=== PATIENT | female | born 1995 | race Caucasian/White ===

== ENCOUNTER 2017-02-14 20:27 | Emergency (ER) | payer BC, OTHER ==
[~2017-02-14] VITALS: Ht 162.6 cm; Wt 68.0 kg
--- OUTSIDE RECORDS SUMMARY | ~2017-02-14 | XMS ---
Demographics + + + | Address | [address] | | | [place] [address] | + + + | Preferred Language | Unknown | + + + | Marital Status | Unknown | + + + | Gnosticism Affiliation | Unknown | + + + | Race | Unknown | + + + | Ethnic Group | Unknown | + + + Author + + + | Author | [facility] | + + + | Organization | [facility] | + + + | Address | [address] | | | [place] [address] | + + + | Phone | | + + + Care Team Providers + + + + | Care Core Carrier Name | Role | Phone | + + + + Unavailable | Unavailable | + + + + PROBLEMS +---------+ + + +--------+ + + | Type | Condition | ICD9-CM | [id number] | Onset | Condition | SNOMED | | | | Code | Code | Dates | Status | Code | +---------+ + + +--------+ + + | Problem | Anxiety | | F41.9 | | Active | [id number] | +---------+ + + +--------+ + + | Problem | Depression | | F32.9 | | Active | 873575490 | +---------+ + + +--------+ + + | Problem | Exercise-i | 493.81 | | | Active | 94768641 | | | nduced | | | [...] smoking Hx information available PLAN OF CARE + +---------+ | Activity | Details | + +---------+ +---+ | | +---+ + + + | Pending Test | NIPT - cfDNA | + + + VITAL SIGNS MEDICATIONS Unknown Medications RESULTS No Results PROCEDURES No Known procedures IMMUNIZATIONS No Known Immunizations"
--- OUTSIDE RECORDS SUMMARY | ~2017-02-14 | XMS ---
Demographics + + + | Address | [address] | | | [place] [address] | + + + | Preferred Language | Unknown | + + + | Marital Status | Unknown | + + + | Mandaen Affiliation | Unknown | + + + | Race | Unknown | + + + | Ethnic Group | Unknown | + + + Author + + + | Author | [facility] | + + + | Organization | [facility] | + + + | Address | [address] | | | [place] [address] | + + + | Phone | | + + + Care Team Providers + + + + | Care Customer Sales Consultant Name | Role | Phone | + + + + Unavailable | Unavailable | + + + + PROBLEMS +---------+ + + +--------+ + + | Type | Condition | ICD9-CM | [id number] | Onset | Condition | SNOMED | | | | Code | Code | Dates | Status | Code | +---------+ + + +--------+ + + | Problem | Anxiety | | F41.9 | | Active | [id number] | +---------+ + + +--------+ + + | Problem | Depression | | F32.9 | | Active | 428714314 | +---------+ + + +--------+ + + | Problem | Exercise-i | 493.81 | | | Active | 27373162 | | | nduced | | | [...]
--- OUTSIDE RECORDS SUMMARY | ~2017-02-14 | XMS ---
Demographics + + + | Address | [address] | | | [place] [address] | + + + | Preferred Language | Unknown | + + + | Marital Status | Unknown | + + + | Rastafari Affiliation | Unknown | + + + | Race | Unknown | + + + | Ethnic Group | Unknown | + + + Author + + + | Author | [facility] | + + + | Organization | [facility] | + + + | Address | [address] | | | [place] [address] | + + + | Phone | | + + + Care Team Providers + + + + | Care Feed Mill Supervisor Name | Role | Phone | + + + + Unavailable | Unavailable | + + + + PROBLEMS +---------+ + + +--------+ + + | Type | Condition | ICD9-CM | [id number] | Onset | Condition | SNOMED | | | | Code | Code | Dates | Status | Code | +---------+ + + +--------+ + + | Problem | Anxiety | | F41.9 | | Active | [id number] | +---------+ + + +--------+ + + | Problem | Depression | | F32.9 | | Active | 459998900 | +---------+ + + +--------+ + + | Problem | Exercise-i | 493.81 | | | Active | 54365520 | | | nduced | | | [...]
--- OUTSIDE RECORDS SUMMARY | ~2017-02-14 | XMS ---
Demographics + + + | Address | [address] | | | [place] [address] | + + + | Preferred Language | Unknown | + + + | Marital Status | Unknown | + + + | Samaritan Affiliation | Unknown | + + + | Race | Unknown | + + + | Ethnic Group | Unknown | + + + Author + + + | Author | [facility] | + + + | Organization | [facility] | + + + | Address | [address] | | | [place] [address] | + + + | Phone | | + + + Care Team Providers + + + + | Care Investment Banker Name | Role | Phone | + + + + Unavailable | Unavailable | + + + + PROBLEMS +---------+ + + +--------+ + + | Type | Condition | ICD9-CM | [id number] | Onset | Condition | SNOMED | | | | Code | Code | Dates | Status | Code | +---------+ + + +--------+ + + | Problem | Anxiety | | F41.9 | | Active | [id number] | +---------+ + + +--------+ + + | Problem | Depression | | F32.9 | | Active | 070489420 | +---------+ + + +--------+ + + | Problem | Exercise-i | 493.81 | | | Active | 26660456 | | | nduced | | | [...]
[~2017-02-14 20:27] MED LIST: CLONAZEPAM1 MG PO; CLONAZEPAM2 MG PO; EPIDUO TOP; IBUPROFEN600 MG PO; LEXAPRO5 MG PO; MIRENA1 EACH IY; NORCO 5-325 TA1 EACH PO; PERCOCET 5-3251 EACH PO; PROAIR HFA8.5 GM INH; PROMETHAZINE12.5 M1 PO; SULFAMETHOXAZO1 EAC1 PO; TYLENOL325 MG PO
[2017-02-14] MEDS ORDERED: ARIPIPRAZOLE5 MG PO (20:34)
[2017-02-14] MEDS ORDERED: PHENADOZ25 MG PR (20:34)
[2017-02-14] MEDS ORDERED: CYCLOBENZAPRINE10 MG PO (20:35)
[2017-02-14] MEDS ORDERED: ONDANSETRON ODT8 MG PO (20:36)
[2017-02-14] MEDS ORDERED: METOCLOPRAMIDE10 MG PO (20:36)
[2017-02-15] MEDS ORDERED: VICODIN 5-3001 EACH PO (10:12)
[2017-02-15] MEDS ORDERED: NORCO 5-325 TA1 EACH PO (10:26)
[2017-02-15] MEDS ORDERED: AUGMENTIN 875-1 EACH PO (10:26)
[2017-08-02] MEDS ORDERED: ESCITALOPRAM OX10 MG PO (07:47)
== END 2017-02-14 23:26 | disposition home or self-care (01) ==
LOC: ED 20:27
DX: O23.592 Infection of other part of genital tract in pregnancy, second trimester (principal); O99.342 Other mental disorders complicating pregnancy, second trimester; F32.9 Major depressive disorder, single episode, unspecified; F41.9 Anxiety disorder, unspecified; O99.512 Diseases of the respiratory system complicating pregnancy, second trimester; J45.909 Unspecified asthma, uncomplicated; Z90.49 Acquired absence of other specified parts of digestive tract; Z88.8 Allergy status to other drugs, medicaments and biological substances; Z79.899 Other long term (current) drug therapy; Z3A.17 17 weeks gestation of pregnancy
CPT/HCPCS: 99282

== ENCOUNTER 2017-02-15 09:58 | Emergency (ER) | payer BC, OTHER ==
[~2017-02-15] VITALS: Ht 162.6 cm; Wt 68.0 kg
[~2017-02-15 09:58] MED LIST changes: +ARIPIPRAZOLE5 MG PO; +CYCLOBENZAPRINE10 MG PO; +METOCLOPRAMIDE10 MG PO; +ONDANSETRON ODT8 MG PO; +PHENADOZ25 MG PR
[2017-02-15] MEDS ORDERED: VICODIN 5-3001 EACH PO (10:12)
[2017-02-15] MEDS ORDERED: AUGMENTIN 875-1 EACH PO (10:26)
[2017-02-15] MEDS ORDERED: NORCO 5-325 TA1 EACH PO (10:26)
[2017-08-02] MEDS ORDERED: ESCITALOPRAM OX10 MG PO (07:47)
== END 2017-02-15 10:52 | disposition home or self-care (01) ==
LOC: ED 09:58
DX: N75.0 Cyst of Bartholin's gland (principal); J45.909 Unspecified asthma, uncomplicated; F32.9 Major depressive disorder, single episode, unspecified; F41.9 Anxiety disorder, unspecified; Z90.49 Acquired absence of other specified parts of digestive tract; Z88.8 Allergy status to other drugs, medicaments and biological substances; Z79.899 Other long term (current) drug therapy
CPT/HCPCS: 96372; 99283; J0696

== ENCOUNTER 2017-03-23 10:24 | Emergency (ER) | payer BC, OTHER ==
[~2017-03-23] VITALS: Ht 162.6 cm; Wt 70.3 kg
[~2017-03-23 10:24] MED LIST changes: +AUGMENTIN 875-1 EACH PO; +VICODIN 5-3001 EACH PO
--- OUTSIDE RECORDS SUMMARY | 2017-03-23 10:32 | XMS ---
Demographics + + + | Address | [address] | | | [place] [address] | + + + | Preferred Language | Unknown | + + + | Marital Status | Unknown | + + + | Taoism Affiliation | Unknown | + + + | Race | Unknown | + + + | Ethnic Group | Unknown | + + + Author + + + | Author | [facility] | + + + | Organization | [facility] | + + + | Address | [address] | | | [place] [address] | + + + | Phone | | + + + Care Team Providers + + + + | Care Image Processing Engineer Name | Role | Phone | + + + + Unavailable | Unavailable | + + + + PROBLEMS +---------+ + + +--------+ + + | Type | Condition | ICD9-CM | [id number] | Onset | Condition | SNOMED | | | | Code | Code | Dates | Status | Code | +---------+ + + +--------+ + + | Problem | Anxiety | | F41.9 | | Active | [id number] | +---------+ + + +--------+ + + | Problem | Depression | | F32.9 | | Active | 027522646 | +---------+ + + +--------+ + + | Problem | Exercise-i | 493.81 | | | Active | 96738757 | | | nduced | | | | | | | | asthma | | | | | | +---------+ + + +--------+ + + | Problem | Imbalanced | 269.8 | | | Active | | | | nutrition | | | | | | +---------+ + + +--------+ + + ALLERGIES Unknown Allergies SOCIAL HISTORY No smoking Hx information available PLAN OF CARE VITAL SIGNS MEDICATIONS + + + + +--------+ + +--------+ | Medicati | Instruct | Dosage | Frequenc | Start | End Date | Duration | Status | | on | ions | | y | Date | | | | + + + + +--------+ + +--------+ | Zofran | Orally | as | | | | 15 | Active | | ODT 8 MG | tid prn | directed | | | | day(s) | | + + + + +--------+ + +--------+ RESULTS No Results PROCEDURES No Known procedures IMMUNIZATIONS No Known Immunizations"
--- OUTSIDE RECORDS SUMMARY | 2017-03-23 10:32 | XMS ---
Demographics + + + | Address | [address] | | | [place] [address] | + + + | Preferred Language | Unknown | + + + | Marital Status | Unknown | + + + | Catholic Affiliation | Unknown | + + + | Race | Unknown | + + + | Ethnic Group | Unknown | + + + Author + + + | Author | [facility] | + + + | Organization | [facility] | + + + | Address | [address] | | | [place] [address] | + + + | Phone | | + + + Care Team Providers + + + + | Care Building Attendant Name | Role | Phone | + + + + Unavailable | Unavailable | + + + + PROBLEMS +---------+ + + +--------+ + + | Type | Condition | ICD9-CM | EMH54-JS | Onset | Condition | SNOMED | | | | Code | Code | Dates | Status | Code | +---------+ + + +--------+ + + | Problem | Anxiety | | F41.9 | | Active | 28953051 | +---------+ + + +--------+ + + | Problem | Depression | | F32.9 | | Active | 291387951 | +---------+ + + +--------+ + + | Problem | Exercise-i | 493.81 | | | Active | 67850585 | | | nduced | | | [...] available PLAN OF CARE VITAL SIGNS MEDICATIONS Unknown Medications RESULTS No Results PROCEDURES No Known procedures IMMUNIZATIONS No Known Immunizations"
--- OUTSIDE RECORDS SUMMARY | 2017-03-23 10:32 | XMS ---
Demographics + + + | Address | [address] | | | [place] [address] | + + + | Preferred Language | Unknown | + + + | Marital Status | Unknown | + + + | Oriental Orthodox Affiliation | Unknown | + + + | Race | Unknown | + + + | Ethnic Group | Unknown | + + + Author + + + | Author | [facility] | + + + | Organization | [facility] | + + + | Address | [address] | | | [place] [address] | + + + | Phone | | + + + Care Team Providers + + + + | Care Tobacco Acreage Measurer Name | Role | Phone | + + + + Unavailable | Unavailable | + + + + PROBLEMS +---------+ + + +--------+ + + | Type | Condition | ICD9-CM | FGC90-UT | Onset | Condition | SNOMED | | | | Code | Code | Dates | Status | Code | +---------+ + + +--------+ + + | Problem | Anxiety | | F41.9 | | Active | 65307128 | +---------+ + + +--------+ + + | Problem | Depression | | F32.9 | | Active | 576142200 | +---------+ + + +--------+ + + | Problem | Exercise-i | 493.81 | | | Active | 27982780 | | | nduced | | | [...]
[2017-03-23] MEDS ORDERED: RECTICARE30 GM TOP (10:56)
[2017-08-02] MEDS ORDERED: ESCITALOPRAM OX10 MG PO (07:47)
== END 2017-03-23 11:03 | disposition home or self-care (01) ==
LOC: ED 10:24
DX: Z48.817 Encounter for surgical aftercare following surgery on the skin and subcutaneous tissue (principal); R10.2 Pelvic and perineal pain; F32.9 Major depressive disorder, single episode, unspecified; F41.9 Anxiety disorder, unspecified; J45.909 Unspecified asthma, uncomplicated; Z90.49 Acquired absence of other specified parts of digestive tract; Z88.2 Allergy status to sulfonamides; Z88.8 Allergy status to other drugs, medicaments and biological substances; Z79.899 Other long term (current) drug therapy
CPT/HCPCS: 99283

== ENCOUNTER 2017-04-09 12:04 | Emergency (ER) | payer BC, OTHER ==
[~2017-04-09] VITALS: Ht 162.6 cm; Wt 68.0 kg
[~2017-04-09 12:04] MED LIST changes: +RECTICARE30 GM TOP
--- OUTSIDE RECORDS SUMMARY | 2017-04-09 13:20 | XMS ---
Demographics + + + | Address | [address] | | | [place] [address] | + + + | Preferred Language | Unknown | + + + | Marital Status | Unknown | + + + | Yazidi Affiliation | Unknown | + + + | Race | Unknown | + + + | Ethnic Group | Unknown | + + + Author + + + | Author | [facility] | + + + | Organization | [facility] | + + + | Address | [address] | | | [place] [address] | + + + | Phone | | + + + Care Team Providers + + + + | Care Mall Plant Caretaker Name | Role | Phone | + + + + Unavailable | Unavailable | + + + + PROBLEMS +---------+ + + +--------+ + + | Type | Condition | ICD9-CM | UUO01-BF | Onset | Condition | SNOMED | | | | Code | Code | Dates | Status | Code | +---------+ + + +--------+ + + | Problem | Anxiety | | F41.9 | | Active | 15057436 | +---------+ + + +--------+ + + | Problem | Depression | | F32.9 | | Active | 911065564 | +---------+ + + +--------+ + + | Problem | Exercise-i | 493.81 | | | Active | 43556836 | | | nduced | | | [...]
[2017-08-02] MEDS ORDERED: ESCITALOPRAM OX10 MG PO (07:47)
== END 2017-04-09 14:05 | disposition home or self-care (01) ==
LOC: ED 12:04
DX: R45.851 Suicidal ideations (principal); F32.9 Major depressive disorder, single episode, unspecified; F41.9 Anxiety disorder, unspecified; J45.909 Unspecified asthma, uncomplicated; Z90.49 Acquired absence of other specified parts of digestive tract; Z88.1 Allergy status to other antibiotic agents; Z88.2 Allergy status to sulfonamides; Z79.899 Other long term (current) drug therapy
CPT/HCPCS: 80053; 80176; 81001; 84443; 85025; 96360; 99283; G0480; J7030

== ENCOUNTER 2017-05-25 17:48 | Emergency (ER) | payer BC, OTHER ==
[~2017-05-25] VITALS: Ht 162.6 cm; Wt 68.5 kg
[2017-08-02] MEDS ORDERED: ESCITALOPRAM OX10 MG PO (07:47)
== END 2017-05-25 22:35 | disposition home or self-care (01) ==
LOC: ED 17:48
DX: O99.89 Other specified diseases and conditions complicating pregnancy, childbirth and the puerperium (principal); R10.11 Right upper quadrant pain; Z90.49 Acquired absence of other specified parts of digestive tract; Z88.2 Allergy status to sulfonamides; Z88.8 Allergy status to other drugs, medicaments and biological substances; Z3A.32 32 weeks gestation of pregnancy
CPT/HCPCS: 76700; 99284

== ENCOUNTER 2017-07-08 16:53 | Inpatient (IN) | payer BC, OTHER ==
[~2017-07-08] VITALS: Ht 162.6 cm; Wt 72.0 kg
[2017-07-09] MEDS ORDERED: SUCRALFATE1 GM PO (00:30)
[2017-08-02] MEDS ORDERED: ESCITALOPRAM OX10 MG PO (07:47)
== END 2017-07-11 14:00 | disposition home or self-care (01) | DRG 775 ==
LOC: FBC 07-09 00:10
PROVIDERS: ADMIT Obstetrics & Gynecology
PROC: 10E0XZZ Delivery of Products of Conception, External Approach (ICD-10-PCS; principal; 2017-07-09)
PROC: 0HQ9XZZ Repair Perineum Skin, External Approach (ICD-10-PCS; 2017-07-09)
PROC: 10907ZC Drainage of Amniotic Fluid, Therapeutic from Products of Conception, Via Natural or Artificial Opening (ICD-10-PCS; 2017-07-09)
PROC: 00HU33Z Insertion of Infusion Device into Spinal Canal, Percutaneous Approach (ICD-10-PCS; 2017-07-09)
PROC: 3E0R3BZ Introduction of Anesthetic Agent into Spinal Canal, Percutaneous Approach (ICD-10-PCS; 2017-07-09)
DX: O99.824 Streptococcus B carrier state complicating childbirth (principal); Z37.0 Single live birth; Z3A.38 38 weeks gestation of pregnancy; O70.0 First degree perineal laceration during delivery
CPT/HCPCS: 01960; 85027; J2405; J2540; J2590; J7120

== ENCOUNTER 2020-05-19 11:52 | Day surgery (SDC) | payer BC, OTHER ==
[~2020-05-19] VITALS: Ht 162.6 cm; Wt 82.0 kg
[~2020-05-19 11:52] MED LIST changes: +ABILIFY5 MG PO; +ALPRAZOLAM0.25 MG PO; +ATIVAN2 MG PO; +BENZ TP; +ESCITALOPRAM OX10 MG PO; +IBUPROFEN800 MG PO; +KLOR-CON 1010 MEQ PO; +MEDROL4 MG PO; +METRONIDAZOLE500 MG PO; +MYORISAN40 MG PO; +NITROFURANTOIN100 MG PO; +PROMETHAZINE HC25 M1 PO; +REGLAN10 MG PO; +SUCRALFATE1 GM PO; +ZOLOFT25 MG PO; +[UNRECOGNIZED DRUG - OTHER] TP
[2020-05-19] MEDS ORDERED: ESCITALOPRAM OX20 MG (12:05)
[2020-05-19] MEDS ORDERED: LAMICTAL25 MG PO (12:10)
--- NOTE | 2020-05-19 13:47 | NUR ---
05/19/20 1347 Sheets,Anahi 1327 PT ARRIVED TO PACU COUGHING AND SITTING IN HIGH FOWLERS. PT DROWSY AND DENIES PAIN. VSS. PT ON 10 VIA NC. 1330 O2 DECREASED 6L NC. 1339 O2 REMOVED, AND LESS COUGHING NOTED. 1344 MD AT BEDSIDE TALKING TO PT.
--- NOTE | 2020-05-23 15:17 | OR ---
[facility] [address] [place], [place] [address] Signed DATE OF OPERATION: 05/19/2020 SURGEON: Rajiv Giles MD PREOPERATIVE DIAGNOSES: 1. Severe and persistent nausea, vomiting, and regurgitation. 2. History of INFANTILE tracheoesophageal fistula repair, [facility]. 3. History of Dulce fundoplication at age 2 at [place], [place]. POSTOPERATIVE DIAGNOSES: 1. Failed Dulce fundoplication with large hiatal hernia and ulcerative esophagitis. 2. Duodenitis. 3. Incidental finding of pre-pyloric gastric "dimple" lesion. PROCEDURE: Esophagogastroduodenoscopy with biopsy. ANESTHESIA: Intravenous sedation, propofol infusion; Fernie Cotter CRNA. INDICATIONS: This 24-year-old white woman is a patient of Dr. Axel Willis and Paola Thornton PA-C. She has a complex past history of tracheoesophageal fistula repair at [facility] in [place] during infancy and subsequent Dulce fundoplication in [place], [place] for reflux problems. The patient has had a rather severe symptoms to suggest recurrent reflux including persistent nausea, vomiting, bloating, and so on. Despite this, she remains overweight at 180 pounds, the BMI of 30.9. Plans were made for upper endoscopy back in January; however, she was found to have COVID positive on her preoperative screening test and procedure was canceled. She had no symptoms related to the COVID problem as it turns out it was an incidental finding. She is now to undergo upper endoscopy to better characterize her gastrointestinal problem. She understands the risks of bleeding, infection, and perforation and wished to proceed. FINDINGS: Severe distal ulcerative esophagitis was noted. A dysmorphic flap valve and a large hiatal hernia were also noted on retroflexed view. The stomach itself was reasonably normal except for a dimple like lesion in the pre-pyloric antrum, possibly a pancreatic rest. The duodenum itself had inflammatory change, but no specific ulcer. CLOtest was Electronically Signed By: RAJIV GILES MD 05/23/20 1517 PATIENT NAME: RADHA ULRICH OPERATIVE REPORT DATE OF : [birth year] REPORT #: [id number] PHYSICIAN: RAJIV GILES MD PCP: NO PRIMARY CARE PHYSICIAN REPORT IS CONFIDENTIAL AND NOT TO BE RELEASED WITHOUT AUTHORIZATION [facility] [address], [place] [address] Signed negative. DESCRIPTION OF PROCEDURE: The patient brought to the endoscopy suite and placed in lateral decubitus position. She was given propofol infusional anesthesia, given her significant medication profile and prior history of "waking up" with severe distress during previous endoscopic evaluation elsewhere. Indeed, she did require a fair amount of propofol for sedation. A bite block was placed. The Olympus video upper endoscope passed into the hypopharynx. Vocal cords appeared normal. Scope was advanced to the esophagus. Distal portion showed severe ulcerations and some angulation deformity. The scope was advanced. The stomach was insufflated with air. Rugal folds were normal. There was no sign of bile within the stomach. The pre-pyloric antrum initially appeared normal. Pylorus was normal. Scope was passed through into the duodenum. The duodenum did have inflammatory change. The ampulla of Vater was normal. Scope was withdrawn. Biopsies taken of the duodenal mucosa including the bulb. Scope was withdrawn and biopsies taken of the antrum for both OTILIA and pathologic testing. Noted in the distal antrum in the pre-pyloric area was a dimple like lesion, which may represent a pancreatic rest. It was not biopsied otherwise disturbed. Retroflexed view was undertaken showing a very sizable hiatal hernia consistent with failed Dulce fundoplication. The scope was withdrawn to the distal esophagus and biopsies were taken of the ulcerative esophagitis multiple times. The remaining esophagus appeared normal. Scope was removed, and the patient was taken to the recovery room in good condition. CONCLUDING DIAGNOSES: 1. Severe ulcerative esophagitis related to failed Dulce fundoplication. 2. Duodenitis. PLAN: We will initiate PPI medication, Prilosec 20 mg p.o. daily. We will see her back in a few weeks to review her pathology reports and her options. Ultimately, the surgical solution is most likely. MD ERICA Seay/MODL /[id number] Electronically Signed By: RAJIV GILES MD 05/23/20 1517 PATIENT NAME: RADHA ULRICH COLON OPERATIVE REPORT DATE OF : [birth year] REPORT #: [id number] PHYSICIAN: RAJIV GILES MD PCP: NO PRIMARY CARE PHYSICIAN REPORT IS CONFIDENTIAL AND NOT TO BE RELEASED WITHOUT AUTHORIZATION [address] [address] Signed cc: DO Paola Wasserman PA-C Copies: KAILASH WILLIS ERIKA PAC ~ Electronically Signed By: RAJIV GILES MD 05/23/20 1517 [facility] DATE OF : [birth year] REPORT #: [id number] PHYSICIAN: RAJIV GILES MD PCP: NO PRIMARY CARE PHYSICIAN REPORT IS CONFIDENTIAL AND NOT TO BE RELEASED WITHOUT AUTHORIZATION
--- NOTE | 2020-05-23 16:40 | PATH ---
[facility] [address] [place], [place] [address] Signed SPECIMEN(S): A DUODENUM SPECIMEN(S): B ANTRUM/PYLORUS SPECIMEN(S): C DISTAL LOWER ESOPHAGUS SPECIMEN SOURCE: A. DUODENUM B. ANTRUM/PYLORUS C. DISTAL LOWER ESOPHAGUS CLINICAL HISTORY: Pre: GERD. Post: Hiatal hernia, ulcerative esophagitis, duodenitis. MICROSCOPIC DESCRIPTION: Histologic sections of all submitted blocks are examined by light microscopy. These findings, together with the gross examination, support the pathologic diagnosis. FINAL PATHOLOGIC DIAGNOSIS: A. Duodenum, biopsy: - Duodenal mucosa with focal mucosal erosion, increased chronic inflammation within the lamina propria, and reactive epithelial changes. - Negative for increased intraepithelial lymphocytes. - Negative for Helicobacter organisms on HE stain. - Negative for dysplasia or malignancy. B. Stomach, antrum/pylorus, biopsy: - Antral mucosa with mild chronic, inactive gastritis. - Negative for Helicobacter organisms on HE stain. - Negative for dysplasia or malignancy. C. Esophagus, distal lower, biopsy: - Squamous mucosa with focal mucosal erosion/ulceration with acute inflammation, hyperkeratosis, and reactive changes. - Detached fragment of superficial gastric mucosa with no histopathologic abnormality. - Negative for intestinal metaplasia, dysplasia, or malignancy. COMMENT: Regarding specimen C: A PAS/D stain (with appropriately staining controls) was performed and is negative for fungal organisms. The histologic findings could be secondary to reflux esophagitis. As part of [facility]' Quality Improvement Program, this case was reviewed by another member of our pathology staff. NAL:NRT:cml:C2NR PATIENT NAME: RADHA ULRICH PATHOLOGY DATE OF : [birth year] REPORT #: [id number] PHYSICIAN: KATHERINE RAE PCP: NO PRIMARY CARE PHYSICIAN REPORT IS CONFIDENTIAL AND NOT TO BE RELEASED WITHOUT AUTHORIZATION [facility] [address] [place], [place] [address] Signed GROSS DESCRIPTION: Three specimens are received in three containers, labeled "SN." A. The specimen, labeled "SN, 1," and designated on the requisition "duodenum," is received in formalin and consists of three mortensen soft tissue fragments that measure 0.5 cm in greatest dimension. The specimen is entirely submitted in cassette (A1). B. The specimen, labeled "SN, 2," and designated on the requisition "antrum/pylorus," is received in formalin and consists of two mortensen soft tissue fragments that measure 0.3 cm in greatest dimension. The specimen is entirely submitted in cassette (B1). C. The specimen, labeled "SN, 3," and designated on the requisition "distal lower esophagus," is received in formalin and consists of three mortensen soft tissue fragments that measure 0.3 cm in greatest dimension. The specimen is entirely submitted in cassette (C1). AT (under the direct supervision of a pathologist) The Gross Description was prepared using a voice recognition system. The report was reviewed for accuracy; however, sound-alike word errors, addition and/or deletions may occur. If there is any question about this report, please contact Client Services. PERFORMING LABORATORY: The technical component was performed by [facility], [address] [place] [id number] (Corrugator Machine Operator: Edith Fritz MD; CLIA# [id number]). Professional interpretation [facility] [place] [address] [place] [address] (CLIA# [id number]). Diagnostician: Nicole Tamez MD Pathologist Electronically Signed 05/23/2020 Copies: ~ [facility]: [facility] DATE OF : [birth year] REPORT #: [id number] PHYSICIAN: KATHERINE PATHOLOGY PCP: NO PRIMARY CARE PHYSICIAN REPORT IS CONFIDENTIAL AND NOT TO BE RELEASED WITHOUT AUTHORIZATION
== END 2020-05-19 14:09 | disposition home or self-care (01) ==
LOC: DS 11:52 → OPS 11:52
PROVIDERS: ATTEND Surgery
PROC: 0DB78ZX Excision of Stomach, Pylorus, Via Natural or Artificial Opening Endoscopic, Diagnostic (ICD-10-PCS; 2020-05-19)
PROC: 0DB38ZX Excision of Lower Esophagus, Via Natural or Artificial Opening Endoscopic, Diagnostic (ICD-10-PCS; 2020-05-19)
PROC: 0DB98ZX Excision of Duodenum, Via Natural or Artificial Opening Endoscopic, Diagnostic (ICD-10-PCS; principal; 2020-05-19 13:00)
DX: K29.50 Unspecified chronic gastritis without bleeding (principal); K26.9 Duodenal ulcer, unspecified as acute or chronic, without hemorrhage or perforation; K29.80 Duodenitis without bleeding; L85.9 Epidermal thickening, unspecified; J45.909 Unspecified asthma, uncomplicated; K21.9 Gastro-esophageal reflux disease without esophagitis; Z23 Encounter for immunization; Z79.899 Other long term (current) drug therapy
CPT/HCPCS: 90686; 99153; G0008; G0500; J2250; J2704; J3010

== ENCOUNTER 2020-07-08 08:14 | Emergency (ER) | payer BC, OTHER ==
[~2020-07-08] VITALS: Ht 162.6 cm; Wt 81.6 kg
[~2020-07-08 08:14] MED LIST changes: +ESCITALOPRAM OX20 MG; +LAMICTAL25 MG PO
--- OUTSIDE RECORDS SUMMARY | 2020-07-08 10:34 | XMS ---
PreManage Notification: RADHA ULRICH Security Embossing Calender Operator Events No recent Security Events currently on file [facility] There are no care providers on record at this time. Tenisha has no Care Guidelines for this patient. Kashif VISIT COUNT (12 MO.) 1 TIM Garcia TOTAL 1 NOTE: Visits indicate total known visits. ED/C VISIT TRACKING (12 MO.) 07/08/2020 08:15 TIM Stewart [place] TYPE: Emergency COMPLAINT: - FACIAL DROOP,WEAKNESS INPATIENT VISIT TRACKING (12 MO.) No inpatient visits to display in this time frame [email or web address]
--- NOTE | 2020-07-08 12:37 | EKG ---
[facility] [address] [facility] [place] [address] Signed Normal sinus rhythm Normal ECG No previous ECGs available Confirmed by LORRAINE ASKEW MD ([id number]) on 07/08/2020 12:37:10 PM Electronically Signed By: LORRAINE ASKEW MD 07/08/20 1237 PATIENT NAME: RADHA ULRICH SALLEY Electrocardiogram DATE OF : [birth year] PHYSICIAN: LORRAINE ASKEW MD REPORT #: [id number] REPORT IS CONFIDENTIAL AND NOT TO BE RELEASED WITHOUT AUTHORIZATION
== END 2020-07-08 11:32 | disposition home or self-care (01) ==
LOC: ED 08:14
DX: E87.6 Hypokalemia (principal); R20.2 Paresthesia of skin; J45.909 Unspecified asthma, uncomplicated; Z87.891 Personal history of nicotine dependence; Z88.2 Allergy status to sulfonamides; Z88.1 Allergy status to other antibiotic agents; Z79.899 Other long term (current) drug therapy
CPT/HCPCS: 70450; 71045; 80053; 81001; 85025; 85651; 93005; 93010; 96374; 99285-25; J2060; J7030

== ENCOUNTER 2020-10-20 06:58 | Inpatient (IN) | payer BC, OTHER ==
[~2020-10-20] VITALS: Ht 162.6 cm; Wt 81.8 kg
[~2020-10-20 06:58] MED LIST changes: -ESCITALOPRAM OX20 MG; +ESCITALOPRAM OX20 MG PO; +LATUDA20 MG PO
[2020-10-25] MEDS ORDERED: VALACYCLOVIR500 MG PO (09:02)
--- NOTE | 2020-10-25 12:04 | NUR ---
PT TAKEN TO OR FOR SURGERY. WILL CHECK BACK
[2020-10-25] MEDS ORDERED: SUCRALFATE1 GM/10 ML PO (13:08)
--- NOTE | 2020-10-25 15:59 | NUR ---
10/25/20 1559 Lyric Loyd 1551-PATIENT ARRIVED TO PACU ON 8L MASK RR EVEN. ORAL AIRWAY IN PLACE. NG TUBE TO LEFT NARE CONNECTED TO LOW INTERMITTENT SUCTION. SR. Q PUMP TO ABDOMEN. DRESSING CDI. 1553-ORAL AIRWAY REMOVED. PATIENT OPENING EYES ON COMMAND VERY DROWSY. CLOSES EYES. RR EVEN.
--- NOTE | 2020-10-25 17:29 | NUR ---
CALLED DR GILES TO REQUEST CEPACOL YUN FOR PT. HE AGREED.
--- NOTE | 2020-10-25 18:09 | NUR ---
PT ARRIVED TO UNIT VIA STRETCH ACCOMPANIED BY CONDENSER TUBE TENDER CARMINE @ 9356. ALERT AND ORIENTED. WAS SLIGHTLY DROWSY ON ARRIVAL, BUT IS NOW MORE ALERT. C/O ABD PAIN 8/10 AT HER MIDLINE INCISION. HR ELEVATED AT 115. IV TORADOL AND TYLENOL NOT YET DUE. 0.5 MG IV DILAUDID GIVEN. ACTICOAT OVER MIDLINE INCISION REMAINS C,D,I. PT HAS NOT VOID SINCE ARRIVAL, THOUGH WAS REPORTED TO HAVE 150 MLS OUT IN PACU. MILLS WAS REMOVED AT 1600 IN PACU PER RN REPORT FROM CARMINE. NG TUBE SET TO LOW INT SUCTION. MINIMAL OUTPUT FROM NGT DRAIN (IMMEASURABLE), DRAINAGE IS BILE COLORED. DR GILES IN TO SEE PT AND EDUCATE ON PROCEDURE/POST-OP PLAN. ORAL CARE DONE FOR PT AND GIVEN SWABS AT BEDSIDE. CALL LIGHT IN REACH.
--- NOTE | 2020-10-25 19:15 | NUR ---
IN ROOM FOR REPORT, PT IS AWAKE IN BED WITH SISTER IN THE ROOM. SHE DENIES NEEDS AT THIS TIME. CALL LIGHT IS CLOSE.
--- NOTE | 2020-10-25 19:54 | NUR ---
COUNTED UNMEASURED VOID IT WAS REPORTED BY PREVIOUS SHIFT THAT MILLS WAS DC'D AND UO WAS NOT ENTERED IN COMPUTER.
--- NOTE | 2020-10-25 20:50 | NUR ---
ADMINISTERED MEDICATIONS AND 1MG IV DIALUDID FOR 8/10 PAIN. PT IS ANXIOUS ABOUT NG TUBE AND HOME MEDICATIONS. SPOKE WITH DR GILES AND GOT ORDERS TO RESTART 3 OF HER HOME MEDICATIONS AND CHARGE WILL PUT IN ORDERS. PT UP TO CHAIR AT THIS TIME PER ORDERS. SHE DENIES FURTHER NEEDS, CALL LIGHT IS CLOSE AND IV IS INFUSING FINE.
--- NOTE | 2020-10-25 21:32 | NUR ---
CONFIRMED WITH PHARMACY PT OWN MEDS VIA [facility]. CONFIRMED TIME PT TAKES HER MEDICATIONS, USUALLY AROUND DINNER, BUT WILL START LATUDA AND LEXAPRO TONIGHT. PT UP IN CHAIR, VISITOR ON COUCH.
--- NOTE | 2020-10-25 21:47 | NUR ---
ASSISTED PATIENT FROM CHAIR TO BED. CHANGED GOWN. SCD'S ON. CONNECTED NGT. PATIENT REFUSED TO HAVE NGT PINNED ON GOWN. PATIENT C/O NGT IS FALLING DOWN. TOLD THAT PRIMARY RN WILL BE NOTIFIED. NOTICED PATIENT CONSTANTLY TOUCHING THE NGT.
--- NOTE | 2020-10-25 22:30 | NUR ---
PT'S NG TUBE IS CLAMPED AT THIS TIME FOR ADMINISTRATION FOR MEDICATIONS. REPLACED NOSE PEICE FOR NG TUBE IT WAS COMING OFF. PT IS VERY FEARFUL OF IT COMING OUT. REASSURED PT AND IT IS SECURED WELL. WILL RETURN IN 1HR TO PUT BACK ON SUCTION. SHE DENIES FURTHER NEEDS AT THIS TIME.
--- NOTE | 2020-10-25 23:27 | NUR ---
PT'S NG TUBE IS BACK TO INTERMITTENT SUCTION. SHE DENIES NEEDS AT THIS TIME. CALL LIGHT IS CLOSE.
--- NOTE | 2020-10-26 00:15 | NUR ---
ASSISTED PATIENT TO THE BATHROOM. PATIENT TRIED TO VOID. PATIENT STATED "i CAN'T PEE". PATIENT IS BACK IN BED. PRIMARY RN NOTIFIED. NGT ON. BLADDER SCANNED SHOWED 115 ML. PRIMARY RN NOTIFIED.
--- NOTE | 2020-10-26 00:16 | NUR ---
PT CALLED STATING SHE IS HAVING 9/10 PAIN THAT SHE DESCRIBES SHARP AT TIMES. PT STATES THE DILAUDID DOES NOT HELP MUCH. ENOUGH TIME HAS PASSED SINCE SHE HAD TORADOL SO WE DISCUSSED PAIN CONTROL WITH TORADOL/OFIRMEV AND DILAUDID. SHE DENIES WANTING TO TRY THE DILAUDID AT THIS TIME. SHE DENIES FURTHER NEEDS AT THIS TIME, SHE IS GETTING UP TO USE THE RESTROOM WITH HERMANN PICKARD.
--- NOTE | 2020-10-26 01:04 | NUR ---
ADMINISTERED DILAUDID 1MG IV FOR PAIN. WAITING ON OFIRMEV WHICH TELECOMMUNICATIONS ENGINEER HAS TO BRING. FLUSHED PT'S NG TUBE WITH 20CC AND PULLED BACK THE 20MLS TO DISCARD. NGT IS ON LIWS AND DRAINING A ELECTRICAL PROSPECTING OPERATOR BROWN IN COLOR NOW. SHE DENIES NEEDS AT THIS TIME. CALL LIGHT IS CLOSE.
--- NOTE | 2020-10-26 01:17 | NUR ---
STARTED IV OFIRMEV FOR 6/10 PAIN. SHE DENIES FURTHER NEEDS AT THIS TIME. CALL LIGHT IS CLOSE.
--- NOTE | 2020-10-26 04:15 | NUR ---
IN TO ASST PT TO THE TOILET, PT IS INDP WITH IV POLE ONCE UNHOOKED FROM SDCS, CPOX, AND NG SUCTION, RN IN TO START NEW IV FLUIDS, PT ASKED ABOUT PAIN MEDS AFTER GETTING BACK INTO BED, RN AWARE
--- NOTE | 2020-10-26 04:48 | NUR ---
PT CONTINUES TO REPORT PAIN 02/28 ADMINISTERED DILAUDID 1MG IV. PT DENIES FURTHER NEEDS AT THIS TIME. INCISION IS CDI WITH VERY SCANT DRAINAGE NOTED. CALL LIGHT IS CLOSE.
--- NOTE | 2020-10-26 05:43 | NUR ---
IN TO ASST PT WITH SCDS, CUFF PRESSURE FELT UNEVEN TO THE PT, ADJ THE CUFFS NO FURTHER NEEDS
--- NOTE | 2020-10-26 06:44 | NUR ---
SPOKE WITH DR GILES ABOUT PT'S LOW URINE OUTPUT AND HIGH AMOUNT OF PAIN. NEW ORDERS PLACED.
--- NOTE | 2020-10-26 08:09 | NUR ---
IVF INCREASED TO 100 MLS/HR. IV TORADOL GIVEN FOR 02/28 ABD. MIDLINE DRSG REMAINS CDI. VSS. PT OOB AND UP TO CHAIR. NGT TO LOW INTERMITTENT SUCTION. CALL LIGHT IN REACH. PT GIVEN CEPACOL FOR THROAT DISCOMFORT. NO OTHER NEEDS AT THIS TIME.
--- NOTE | 2020-10-26 09:40 | NUR ---
CASE MANAGMENT ASSESSMENT COMPLETE WIHT INFORMATION FROM PTS CHART [facility] TEAM. PT REPORTED TO GRADUATE ASSISTANT, NO NEEDS AT HOME
--- NOTE | 2020-10-26 09:45 | NUR ---
PT STARTED ON SUSTAINMENT LOGISTICS ANALYST PUMP. VERIFIED W/ RACHEL AREVALO.
--- NOTE | 2020-10-26 10:57 | NUR ---
PT HAS NOT VOIDED SINCE LAST NIGHT. BLADDER SCANNED AND [address] GILES CALLED. ORDERS TO DC NGT AND ENCOURAGE PO FLUID INTAKE, CLEAR LIQUIDS THAT ARE NOT HOT, COLD, OR CARBONATED. NGT DC'D BY THIS RN AND PT GIVEN LUKEWARM WATER TO DRINK. SITTING UP IN CHAIR. RATES ABD PAIN 4/10, REPORTS KILN DRAWER PUMP IS WORKING WELL. MIDLINE DRESSING REMAINS DRY AND INTACT, NO NEW DRAINAGE NOTED. BOWEL TONES HYPOACTIVE. PT DENIES NAUSEA. 70 MLS NGT OUTPUT SINCE INSERTION. NO OTHER NEEDS AT THIS TIME.
--- NOTE | 2020-10-26 11:35 | NUR ---
PT UP TO VOID 300 MLS CONCENTRATED YELLOW URINE. AMBULATED ANOTHER 2 LAPS AROUND NURSES STATION W/ SISTER. TOLERATED WELL. PAIN HAS BEEN WELL MANAGED W/ COMIC ARTIST PUMP, ABD PAIN REMAINS AT 4/10. DRANK 1 CUP WARM WATER AND AND 1 CUP WARM BROTH. TOLERATING WELL AND DENIES NAUSEA. BACK TO CHAIR. CALL LIGHT IN REACH.
--- NOTE | 2020-10-26 14:32 | NUR ---
PATIENT UP IN CHAIR, SISTER IN ROOM. VITALS ANS I&OS CHARTED. CALL LIFHT IN REACH PATIENT HAS AMBULATED MORE THAN 5 TIMES AROUND NURSES STATION TODAY.
--- NOTE | 2020-10-26 15:30 | NUR ---
PT REPORTS PAIN HAS BEEN WELL MANAGED W/ ENGINEERING AID PUMP, THOUGH SHE NOW STATES IT'S WORSENED AFTER AMBULATION. IV TORADOL GIVEN. TOLERATED CLEAR LIQUIDS WELL.
--- NOTE | 2020-10-26 18:45 | NUR ---
PT BACK TO BED AFTER BEING UP IN CHAIR ALL DAY. AMBULATED IN [place] FREQUENTLY. REPORTS ABD PAIN IS 10/29. SINCE 929 PT HAS HAD 18.1 MG MORPHINE TOTAL THROUGH SHERIFF OFFICER PUMP. MIDLINE DRESSING REMAINS INTACT, NO CHANGES. BOWEL TONES ACTIVE IN ALL QUADRANTS. PT TOLERATING CLEARS. DENIES NAUSEA. NO OTHER NEEDS AT THIS TIME.
--- NOTE | 2020-10-26 19:52 | NUR ---
PATIENT RESTING QUIETLY IN BED AT THIS TIME WORKING ON HER PHONE. PATIENT HAS NO CARE NEEDS AT THIS TIME. CALL LIGHT IS IN REACH.
--- NOTE | 2020-10-26 22:10 | NUR ---
PATIENT RESTING QUIETLY IN BED IN SEMI-FOWLERS POSITION. RESPIRATIONS ARE REGULAR AND EVEN, EYES CLOSED, CALL LIGHT IN REACH.
--- NOTE | 2020-10-27 00:15 | NUR ---
PATIENT'S PAIN IS CONTROLLED AT A COMFORTABLE LEVEL OF 4/10 WITH EMT DISPATCHER. PATIENT'S BILAT ABD ON-Q PUMP ALSO WORKING. PATIENT'S LUNGS ARE CLEAR, BOWEL TONES HYPOACTIVE, A+O, VS STABLE. REMAINS ON CPOX. NEW BAG OF IV FLUID HUNG. PATIENT WANTING TO TRY AND GO BACK TO SLEEP. CALL LIGHT IS IN REACH.
--- NOTE | 2020-10-27 00:25 | NUR ---
IN ROOM TO FIX BEEPING IV PUMP, PT DENIES FURTHER NEEDS. CALL LIGHT IS CLOSE.
--- NOTE | 2020-10-27 03:03 | NUR ---
PATIENT CALLED LOOP SEWER SYRINGE NEEDED CHANGED WHICH WAS DONE BY THIS RN AND HO BARKER RN. PATIENT HAVING 8/10 ABD PAIN AND 30MG IV TORADOL GIVEN FOR PAIN. PATIENT HAS NO OTHER NEEDS. CALL LIGHT IN REACH.
--- NOTE | 2020-10-27 03:04 | NUR ---
PT CALLED FOR ASSISTANCE TO RESTROOM. SHE IS BACK IN BED AND DENIES FURTHER NEEDS, CALL LIGHT IS CLOSE, RESIN PAINTER BOTTON IS CLOSE.
--- NOTE | 2020-10-27 03:26 | NUR ---
PATIENT RESTING QUIETLY IN BED, RESPIRATIONS REGULAR AND EVEN, CALL LIGHT IN REACH. SATS ARE 94% ON RA AND HR=70.
--- NOTE | 2020-10-27 09:09 | NUR ---
PT UP TO BATHROOM TO VOID. REPORTS PAIN HAS BEEN WELL MANAGED BY SYNCHRONOUS MOTOR ASSEMBLER PUMP OVERNIGHT AND HAS NOT REQUIRED ADDITIONAL PAIN MEDICATION. PT AMBULATED TO CHAIR. GIVEN SCHEDULED MEDICATIONS. SYNCHRONOUS MOTOR ASSEMBLER PUMP HAS INFUSED 4 MG MORPHINE SINCE START OF SHIFT. UPPER GI STUDY TO BE COMPLETED SATURDAY 10/28 @ 10 AM, PT NEEDS TO BE NPO AFTER MIDNIGHT TONIGHT. PT NOTIFIED AND SIGN PLACED ON DOOR. PT GIVEN CALL LIGHT. VSS.
--- NOTE | 2020-10-27 10:42 | NUR ---
PT AMBULATED HALLS THIS MORNING WITH MOTHER, ABLE TO AMBULATE 2 FULL LAPS, TOLERATING WELL. DR. GILES IN TO SEE PT AND ADVANCED TO FULL LIQUID DIET. LR DECREASED TO 75 MLS/HR. IN TO HANG NEW BAG. PT UP IN CHAIR PLAYING CARDS WITH MOTHER. ASSESSMENT COMPELTE. LUNG SOUNDS CLEAR, VSS. BOWEL TONES ACTIVE IN UPPER QUADRANTS, HYPOACTIVE IN LOWER. PT BURPING BUT DENIES PASSING GAS OR HAVING BOWEL MOVEMENT. CALL LIGHT IN REACH. NO OTHER NEEDS AT THIS TIME.
--- NOTE | 2020-10-27 12:30 | NUR ---
PT C/O OF 02/28 ABD PAIN UNRELIEVED BY TRIAGE NURSE AFTER ACTIVITY. GIVEN IV TORADOL. PT SITTING UP IN CHAIR, USES PILLOW TO ABD SPLINT WHEN GETTING UP AND DOWN. PLAYING CARDS W/ MOM IN ROOM. WITH RECHECK PAIN STATUS SHORTLY.
--- NOTE | 2020-10-27 13:00 | NUR ---
PT REPORTS PAIN IMPROVED AFTER IV TORADOL AND IS NOW 4/10.
--- NOTE | 2020-10-27 14:21 | NUR ---
Spoke with Mireya, she states she is doing well. cont. to plans on dc to [facility] for help as she has a 3 yo. Denies other needs.
--- NOTE | 2020-10-27 17:45 | NUR ---
SMALL OPSITE APPLIED TO LOWER CORNER OF ACTICOAT IT WAS SLIGHTLY COMING UP AT END. DR GILES NOTIFIED. PT DENIES PAIN W/ AUTOMOTIVE SERVICE CONSULTANT PUMP AT THIS TIME. AMBULATED [place] X3 THIS AFTERNOON. HAD A GOOD DAY. NO ACUTE CHANGES.
--- NOTE | 2020-10-27 19:30 | NUR ---
SHIFT REPORT RECEIVED FROM TERRENCE YADAV AT BEDSIDE. pt AWAKE AND RESTING IN CHAIR, MOTHER IN ROOM. ACTICOAT IN PLACE, MINIMAL BROWN SHADOWING TO DISTAL PORTION OF DRESSING WILL MONITOR. ON-Q PUMP IN PLACE. IV FLUIDS INFUSING PER MD ORDERS ALONG WITH INFANTRY ASSAULTMAN PUMP. BUTTON IN REACH. NO FURTHER NEEDS, CALL LIGHT IN REACH. BOARD UPDATED.
--- NOTE | 2020-10-27 20:06 | NUR ---
BROUGHT PT APPLE JUICE AND NONSKID SOCKS. PT DENIES FURTHER NEEDS AT THIS TIME. CALL LIGHT IS CLOSE.
--- NOTE | 2020-10-27 20:55 | NUR ---
ASSESSMENT COMPLETE, SCHEDULED MEDS GIVEN, SEE EMAR. PRN PO PAIN MEDICATION GIVEN FOR INCREASING PAIN. EDUCATION GIVEN AND POC DISCUSSED ON PAIN CONTROL AND TO LIMIT REGISTERED NURSE TEACHER USE FOR BREAKTHROUGH PAIN. pt VERBALIZED UNDERSTANDING. NO CHANGES TO MIDLINE DRESSING, WILL CONTINUE TO MONITOR. REGISTERED NURSE TEACHER SETTINGS UPDATED PER MD ORDERS, REGISTERED NURSE TEACHER DOSE CHANGED TO 1MG AND LOCKOUT TO 8 MINUTES, SEE EMAR. REMAINING SETTINGS UNCHANGED. VERIFIED WITH SECOND RN HO. NO FURTHER NEEDS, CALL LIGHT IN REACH.
--- NOTE | 2020-10-27 21:00 | NUR ---
in to get vitals
--- NOTE | 2020-10-27 23:50 | NUR ---
NEW BAG IV FLUIDS HUNG AND INFUSING PER MD ORDERS, SITE WNL. pt REPORTS PAIN IS TOLERABLE. HOSIERY LOOPER PUMP BUTTON WITHIN EASY REACH, NO FURTHER NEEDS. CALL LIGHT IN REACH.
--- NOTE | 2020-10-28 01:02 | NUR ---
CALL LIGHT ANSWERED, pt CONCERNS "SOMETHING IS LEAKING". IV SITE AND ABD INCISION ASSESSED, BOTH WNL. GOWN FEELS COOL. pt REASSURED NOTHING IS LEAKING, NEW GOWN OFFERED, DECLINED. pt RETURNED TO SLEEP. CALL LIGHT AND PIN CHASER PUMP WITHIN EASY REACH. REPORTS PAIN IS TOLERABLE AT 5/10, WILL MONITOR.
--- NOTE | 2020-10-28 01:38 | NUR ---
pt AWAKE AND IN BED, FACIAL GRIMACING NOTED, pt REPORTS INCREASING PAIN 7-8/10, PRN TORADOL GIVEN, SEE EMAR. ASSESSMENT ALSO COMPLETE, NO NEW CHANGES OR CONCERNS. CALL LIGHT IN REACH. IV SITE WNL.
--- NOTE | 2020-10-28 02:00 | NUR ---
pt NPO AT THIS TIME, NO NEEDS VERBALIZED. CALL LIGHT IN REACH.
--- NOTE | 2020-10-28 04:00 | NUR ---
pt MADE NPO AT THIS TIME, REPORTS LAST TIME SHE ATE/DRANK WAS AROUND 0200. NO FURTHER NEEDS, CALL LIGHT IN REACH.
--- NOTE | 2020-10-28 05:18 | NUR ---
VS AND I&O'S COMPLETE, pt REPORTS PAIN IS TOLERABLE. DENIES NEED FOR PO PAIN MEDICATION, WILL MONITOR. DENIES NEED TO VOID, WILL MONITOR. NO FURTHER NEEDS, CALL LIGHT IN REACH.
--- NOTE | 2020-10-28 06:44 | NUR ---
pt AMBULATING IN THE HALLWAY INDEPENDENTLY, NO NEEDS VERBALIZED. CALL LIGHT IN REACH.
--- NOTE | 2020-10-28 07:05 | NUR ---
Report received from slot shift supervisor RN. Pt resting in bed, awake and alert. IVF infusing WNL. Pt reports no needs at this time, call light in reach. Will cont plan of care
--- NOTE | 2020-10-28 09:05 | NUR ---
PT MEDICATED WITH PRN TORADOL PRIOR TO PROCEDURE. PT AMBULATES TO BR INDEPENDENTLY TO VOID, BED LINENS CHANGED. PLAN OF CARE DISCUSSED.
--- NOTE | 2020-10-28 09:55 | NUR ---
In to speak with Dr. Naeem Gomes in room. Pt will dc tomorrow. Denies further needs. Plan remains to dc to home with mom.
--- NOTE | 2020-10-28 09:58 | NUR ---
PT RETURNED FROM XRAY. PT RATING PAIN 8/10 TO ABD, GIVEN 2MG PO DILAUDID. IV FLUIDS RESUMED. DISCUSSED PAIN MANAGEMENT WITH TRANSITIONING TO ORAL MEDICATIONS AND WEANING OFF HEALTHCARE LIAISON, PT VERBALIZED UNDERSTANDING. SCDS IN PLACE. PT DENIES OTHER NEEDS AT THIS TIME.
--- NOTE | 2020-10-28 11:04 | NUR ---
IV infiltrated. okay to leave IV out. Dr Hartley in to see pt, new orders for soft mechanical diet and DC of GANDY DANCER, IVF, and ON Q pump removed. Pt tolerated well. Education provided regarding diet, activity and skin care. No further needs at this time
--- NOTE | 2020-10-28 11:50 | NUR ---
Rounded on patient, sitting up in chair eating lunch. States tolerating well. Reports no needs at this time, call light in reach.
--- NOTE | 2020-10-28 12:08 | NUR ---
VISITED WITH PT SHE AMBULATED IN HALLWAY. PT MENTIONED SHE IS DOING MUCH BETTER, SLEPT OK LAST NIGHT. WE WALKED, STAFF COMMENTED ON HOW MUCH BETTER SHE LOOKED TODAY. THIS SEEMED TO PLEASE HER. GAVE G.POST AND ENCOURAGEMENT
--- NOTE | 2020-10-28 12:30 | NUR ---
Notified by staff, pt would like a visit. 1330 Into see pt and she wants to know if I can get her a grabber and a shower chair. Updated insurance will not pay for either, but gave information for [employer] and their lending closet. Mom is present and states she is aware of [facility] and they can get a shower chair if needed.
--- NOTE | 2020-10-28 12:48 | NUR ---
PRN pain medication administered for 7/10 ABD pain. Ice pack to incision. Meds crushed and administered with pudding. Pt states no further needs, call light inr each
--- NOTE | 2020-10-28 13:35 | NUR ---
PT NOTIFIES THIS RN OF BOWEL MOVEMENT. VISUALIZED AND CHARTED-SEE I/O. NO FURTHER NEEDS AT THIS TIME.
--- NOTE | 2020-10-28 15:00 | NUR ---
PRN MEDICATIONS ADMINISTERED FOR 7/10 PAIN IN ABDOMEN. SEE MAR. ASSESSMENT COMPLETE, PT CONTINUES TO HAVE ACTIVE BOWEL TONES, TENDER UPON PALPATION, STERI STRIPS IN PLACE, C/D/I. PT REPORTS NO NEEDS, WOULD LIKE TO NAP, ALLOWED TO REST AT THIS TIME. CALL LIGHT IN REACH.
--- NOTE | 2020-10-28 15:32 | PATH ---
[facility] [address], [place] [address] Signed SPECIMEN(S): A ABDOMINAL HYPERTROPHIC SCAR SPECIMEN SOURCE: A. ABDOMINAL HYPERTROPHIC SCAR CLINICAL HISTORY: Reconstruction of gastroesophageal junction with manometrics, placement of onq pump. FINAL PATHOLOGIC DIAGNOSIS: Skin, abdominal hypertrophic scar, excision: - Skin with dermal scar. - No evidence of malignancy. NAL:cml:C2NR MICROSCOPIC EXAMINATION: Histologic sections of all submitted blocks are examined by light microscopy. These findings, together with the gross examination, support the pathologic diagnosis. GROSS DESCRIPTION: The specimen, labeled "SN, abdominal hypertrophic scar," is received in formalin and consists of one skin tissue fragment that measures 14.5 x 0.7 x 0.4 cm. The skin surface shows pink-mortensen, linear shaped scar. Specimen is inked and serially sectioned. Sectioning through the specimen is grossly unremarkable. Tripoler sections are submitted in cassette (A1). JS (under the direct supervision of a pathologist) The Gross Description was prepared using a voice recognition system. The report was reviewed for accuracy; however, sound-alike word errors, addition and/or deletions may occur. If there is any question about this report, please contact Client Services. PERFORMING LABORATORY: The technical component was performed by [facility], [address] [place] [id number] (Cotton Jammer: Edith Fritz MD; CLIA# [id number]). [facility], [address] [address] (CLIA# [id number]). Diagnostician: Nicole Tamez MD PATIENT NAME: [facility] DATE OF : [birth year] REPORT #: [id number] PHYSICIAN: KATHERINE PATHOLOGY PCP: ROMEL HOOK PAC REPORT IS CONFIDENTIAL AND NOT TO BE RELEASED WITHOUT AUTHORIZATION [address] [address] Signed Pathologist Electronically Signed 10/28/2020 Copies: ~ [facility] DATE [facility] : [birth year] REPORT #: [id number] PHYSICIAN: KATHERINE PATHOLOGY PCP: ROMEL HOOK PAC REPORT IS CONFIDENTIAL AND NOT TO BE RELEASED WITHOUT AUTHORIZATION
--- NOTE | 2020-10-28 18:12 | NUR ---
Scheduled medications administered. Made plan with pt for PRN pain medications when available. Pt resting in bed, states no needs at this time. Call light in reach
--- NOTE | 2020-10-28 18:31 | NUR ---
PT MADE GOOD PROGRESS THIS SHIFT. IV REMOVED, ON Q PUMP REMOVED PER MD ORDER. PT AMBULATING WELL IN HALLWAY AND INDEPENDENT IN ROOM. TOLERATING SOFT MECHANICAL DIET, ABDOMINAL/INCISIONAL PAIN MANAGED WITH PRN PAIN MEDICATIONS THROUGHOUT SHIFT. PT SHOWERED TODAY. SCDS IN PLACE. ON ROOM AIR, VSS. CALLS APPROPRIATELY.
--- NOTE | 2020-10-28 19:20 | NUR ---
SHIFT REPORT RECEIVED FROM TERRENCE HSU AT BEDSIDE, pt AWAKE AND RESTING IN BED. BRACING ABD, REPORTS 8/[address], DRY, BANDAIDS X2 NOTED TO PREVIOUS ON-Q PUMP SITES. AT 1930: PRN PO PAIN MEDICATION GIVEN FOR 8/10 ABD PAIN, SEE EMAR. NO FURTHER NEEDS, CALL LIGHT IN REACH.
--- NOTE | 2020-10-28 20:10 | NUR ---
IN TO GET VITALS AND I&Os, FRESH WATER TOPPED OFF, NO FURTHER NEEDS AT THIS TIME, RN IN SHORTLY
--- NOTE | 2020-10-28 20:18 | NUR ---
ASSESSMENT COMPLETE, SCHEDULED MEDS GIVEN, SEE EMAR. pt A/OX4, VSS. pT ON RA, LUNG SOUNDS CLEAR. DEMONSTRATED USE OF IS, REACHED 1750. BT ACTIVE, pt DENIES NAUSEA. REPORTS MILD HEARTBURN, SCHEDULED PEPCID GIVEN, WILL MONITOR. PAIN REMAINS 7-8/10, RECENTLY GIVEN PO DILAUDID, WILL MONITOR. NO FURTHER NEEDS, CALL LIGHT IN REACH.
--- NOTE | 2020-10-28 22:40 | NUR ---
IN TO ASST PT WITH SCDS, PT INQUIRED ABOUT GETTING TYNENOL, WILL ASK THE RN
--- NOTE | 2020-10-28 22:45 | NUR ---
PRN TYLENOL GIVEN PER pt REQUEST FOR 01/28 PAIN, NO FURTHER NEEDS. CALL LIGHT IN REACH.
--- NOTE | 2020-10-29 00:37 | NUR ---
PRN PO DILAUDID GIVEN FOR 7-8 PAIN, pt STATES, "I THINK THE TYLENOL ACTUALLY HELPED MORE". NO FURTHER NEEDS, CALL LIGHT IN REACH. FRESH WATER ALSO PROVIDED.
--- NOTE | 2020-10-29 03:00 | NUR ---
pt AWAKE AND RESTING IN BED, DENIES NEEDS. RR EVEN AND UNLABORED, CALL LIGHT IN REACH.
--- NOTE | 2020-10-29 05:04 | NUR ---
pt HAD A GOOD NIGHT, SLEPT OFF AND ON. PAIN CONTROLLED WITH PO PAIN MEDICATION, SEE EMAR. NO NAUSEA REPORTED. STERI STRIPS IN PLACE, DRY/CRUSTY. BOWEL TONES ACTIVE, pt REPORTS PASSING GAS AND AMBULATES INDEPENDENTLY IN HALLWAY. VOIDING QS. NO BM THIS SHIFT. NO IV ACCESS, AWARE.
--- NOTE | 2020-10-29 05:18 | NUR ---
ASSESSMENT COMPLETE, NO NEW CHANGES OR CONCERNS. VSS AND I&O'S COMPLETE. pt REPORTS TOLERABLE 5/10 PAIN, DENIES NEED FOR PAIN MEDICATION. CALL LIGHT IN REACH.
--- NOTE | 2020-10-29 07:10 | NUR ---
BEDSIDE HANDOFF REPORT RECEIVED FROM CONVERTER OPERATOR RN. PT SLEEPING, LEFT UNDISTURBED.
--- NOTE | 2020-10-29 08:20 | NUR ---
PT RESTING IN BED. PT RATING PAIN 7/10, REQUESTING PAIN MEDICATION GIVEN 4MG PO DILAUDID AND 1000MG PO TYLENOL. PT ON ROOM AIR, LUNG SOUNDS CLEAR, DENIES SOB. PT DENIES NAUSEA, BOWEL TONES ACTIVE, TOLERATING DIET. CMS INTACT, WITHOUT EDEMA. WITHOUT IV ACCESS. MIDLINE INCISION WITH STERISTRIPS IN PLACE, NO NEW DRAINAGE. BILATERAL ABD PUNCTURE SITES WITH BANDAIDS. DISCUSSED PLAN OF CARE, PT AGREEABLE TO WALK IN B[place] AFTER EATING BREAKFAST, ANTICIPATING DISCHARGE TODAY.
--- NOTE | 2020-10-29 08:48 | NUR ---
PT WALKING IN [place].
[2020-10-29] MEDS ORDERED: HYDROMORPHONE HC2 MG PO (09:59)
[2020-10-29] MEDS ORDERED: ACETAMINOPHEN500 MG PO (09:59)
[2020-10-29] MEDS ORDERED: FAMOTIDINE20 MG PO (10:00)
[2020-10-29] MEDS ORDERED: SUCRALFATE1 GM/10 ML PO (10:00)
--- NOTE | 2020-10-29 10:00 | NUR ---
PATIENT HAS AMBULATED IN HALLWAY TWICE THIS MORNING, MULTIPLE LAPS BOTH TIMES. PATIENT NOW SITTING UP IN BED WATCHING TV. VITALS AND I&O'S CHARTED. CALL LIGHT IN REACH. NO FURTHER NEEDS AT THIS TIME.
--- NOTE | 2020-10-29 13:48 | OR ---
[facility] [address], [place] [address] Signed DATE OF OPERATION: 10/25/2020 SURGEON: Rajiv Giles MD PREOPERATIVE DIAGNOSES: 1. Persistent dysphagia and complex recurrent hiatal hernia. 2. 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 3. History of Dulce fundoplication in childhood (age 4). 4. Obesity. POSTOPERATIVE DIAGNOSES: 1. Persistent dysphagia and complex recurrent hiatal hernia. 2. 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 3. History of Dulce fundoplication in childhood (age 4). 4. Obesity. 5. Extensive adhesions particularly of liver to the lesser sac and left hemidiaphragm and anterior abdominal wall. PROCEDURES: 1. Open exploration of abdomen with extensive lysis of adhesions of liver and GE junction. 2. Reduction of complex recurrent hiatal hernia.... 3. Hill posterior gastropexy (reconstruction of gastroesophageal junction with posterior gastropexy). prolonged complicated and difficult 4. Intraoperative manometrics. 5. Excision of scar. 6. Placement of On-Q pain pump catheters. AIRCRAFT ELECTRICAL SYSTEMS SPECIALIST SKYLER NEELY RN.. ANESTHESIA: General endotracheal, Fernie Cotter CRNA. INDICATIONS: This 25-year-old white woman is a patient of DEJAH Adair and Emmanuel Willis D.O. 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 She subsequently had a Dulce fundoplication while in [place] at age 4 for intractable reflux problems. The patient is considered to have significant reflux and dysphagia problems for the past several Electronically Signed By: RAJIV GILES MD 10/29/20 1348 PATIENT NAME: RADHA ULRICH OPERATIVE REPORT DATE OF : [birth year] REPORT #: [id number] PHYSICIAN: RAJIV GILES MD PCP: ROMEL HOOK PAC REPORT IS CONFIDENTIAL AND NOT TO BE RELEASED WITHOUT AUTHORIZATION [facility] [address], [place] [address] Signed years, worsening in recent times. Her recurrent reflux symptoms occured at age 13. 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 A video esophagram was performed on September 13, 2020, and I have reviewed those images extensively with Dr. Bella. These show a number of findings of concern including a caliber change in the upper esophagus to the midesophagus, likely related to tracheoesophageal fistula repair in the distant past. A somewhat patulous appearance of the esophagus was noted at the level of the gera. Additionally, barium passage was delayed in the mid to distal esophagus with regurgitation up into the mouth on dry swallows with poor passage and progression of contrast into the stomach. A lobulated essentially segmented stomach is noted related to recurrent hiatal hernia with at least half of the stomach above the diaphragm. This is a typical finding of a failed Dulce fundoplication at this date. A small esophageal diverticulum was noted as well. Consideration has been made for repair of the hiatal hernia, which likely is accounting for most of her symptoms. As regards to the esophageal dysmotility, her motility is not normal as noted on video esophagram, but in particular with reduction of hiatal hernia and posterior gastropexy as per Hill posterior gastropexy technique, I do expect esophageal motility to improve with operation. I have discussed with the patient on several occasions-- and her mother on at least one occasion-- the proposed operation today and the special risks attendant to it. Those risks include, but are not limited to, bleeding, infection, recurrent hiatal herniation, damage to other organs nearby including spleen or others, and of course failure to improve her dysmotility that is associated with a complex recurrent hiatal hernia. Understanding all this, they wished to proceed. FINDINGS: Dense adhesions of the left lateral segment of the liver to the abdominal wall anteriorly and at the midline as well as deep in the region of the GE junction was noted. Considerable and extensive dissection was required to provide exposure to the GE junction including meticulous takedown of hepatic adhesions and mobilization of the GE junction. The stomach was able to be reduced from the posterior mediastinum and the esophagus well identified and freed up. Hernia sacs were divided so as to avoid the bungee cord like effect on such remnants of hernia sac. The posterior and anterior vagal nerve branches were identified and preserved. The left and right crura were intact with a fair amount of dissection and reapproximated allowing for the index finger alongside the esophagus and posterior gastropexy taken to the confluence of the left and right crura elevating them free from the aorta. Electronically Signed By: RAJIV GILES MD 10/29/20 1348 PATIENT NAME: RADHA ULRICH OPERATIVE REPORT DATE OF : [birth year] REPORT #: [id number] PHYSICIAN: RAJIV GILES MD PCP: ROMEL HOOK PAC REPORT IS CONFIDENTIAL AND NOT TO BE RELEASED WITHOUT AUTHORIZATION [address] [address] Signed Intraoperative manometrics showed a peak pressure of approximately 25 mmHg over a 2-3 cm segment intra-abdominally. The pancreas itself was well visualized and normal. The spleen was really never visualized. It had been mobilized from the splenic hilum likely in infancy already. There was surgical absence of the gallbladder. The small bowel that was examined was normal. At conclusion, an optimal flap valve is noted. A nasogastric tube remains in place for decompression and complete reduction of the stomach from the posterior mediastinum has been accomplished. DESCRIPTION OF PROCEDURE: The patient was brought to the operating room, given a general endotracheal anesthetic. Preoperative antibiotic Ancef was given. Sequential compression device stockings were used and heparin subcutaneously administered. A Pettit catheter was placed. 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 It was withheld until later in the operation. The abdomen was clipped and prepared with a chlorhexidine solution and draped sterilely. A midline incision from the past was somewhat wide at the center portion. This was later excised and passed for pathology and scar revision undertaken in that way. Midline fascia was incised and the abdomen entered. Inferiorly, there was no evidence of abnormality with the omentum beneath the abdominal wall. Extension of the incision cephalad allowed for entry into the liver parenchyma. As it turns out the left lateral segment was rather bulky, large and low-lying. The small defect in the liver was secured with electrocautery. Inspection internally showed the left lateral segment of the liver to be extensively adherent to the left abdominal wall and the central mid upper abdominal incision area. Meticulous care was taken to free the liver from the anterior abdominal wall and laterally as well. Ultimately, the falciform ligament was identified in the right lobe of the liver unencumbered by adhesions or other issues. The residual falciform ligament and triangular ligament were incised to the root of the diaphragm. The round ligament was freed from the anterior abdominal wall. Inspection beneath the edge of the liver was ultimately undertaken showing dense adhesions of the undersurface of the liver to the lesser curve of the stomach. With careful and extensive meticulous dissection of the liver superiorly and laterally, the liver was ultimately freed from the diaphragm and the colon as well. The left phrenic vein was identified and unharmed. Electronically Signed By: RAJIV GILES MD 10/29/20 1348 PATIENT NAME: RADHA ULRICH OPERATIVE REPORT DATE OF : [birth year] REPORT #: [id number] PHYSICIAN: RAJIV GILES MD PCP: ROMEL HOOK PAC REPORT IS CONFIDENTIAL AND NOT TO BE RELEASED WITHOUT AUTHORIZATION [facility] [address], [place] [address] Signed Thereafter, began the long process of freeing the adherent inferior wall of the left lateral segment of liver to the lesser sac area. This was undertaken with blunt and electrocautery dissection ultimately freeing it entirely. Ultimately, the caudate lobe of the liver could be identified. An upper hand retractor had been placed to allow for further dissection of the liver and by this point, a Bookwalter retractor was attached to the inferior aspect of the table allowing for further dissection. After a considerable amount of time and effort, the GE junction was finally well identified. The left lateral segment of liver was folded and retracted to the right revealing the GE junction area. Palpation of the stomach allowed for reduction from the posterior mediastinum. There appeared to be dense hernia sacs as would be expected. A Ezequiel clamp was applied to the remnant of the right nini of the diaphragm using blunt electrocautery dissection. It was freed. This allowed for identification of the left crura deep and lateral to the esophagus, which by this point was being mobilized from the mediastinum more fully. The esophagus had a dense adhesions and a dense hernia sac in the posterior and lateral aspect on the left. This was freed from its attachments posteriorly. Blunt dissection was used to free the esophagus from the posterior mediastinum. The posterior vagal nerve branch was identified. A window was created between the esophagus and the soft tissue and a large [place] drain passed around the GE junction to more fully provide inferior traction. With meticulous care, the left side of the esophagus as it was connected to the posterior aspect including the left nnii was undertaken with blunt electrocautery dissection. Special care was taken to mobilize the esophagus fully. An epiphrenic diverticulum was not identified in the course of dissection and the muscle itself did not appear excessively thickened. There were of course chronic inflammatory changes related to previous surgery. A hook retractor was used to more fully elevate the GE junction and using blunt electrocautery dissection, the preaortic fascia was identified. [place] clamps were applied to the left and right crura. Once the stomach was fully freed from the GE junction and esophagus well identified, a Hill manometric tube was passed into the stomach anticipating manometric readings following reconstruction. It is noted that the fundus of the stomach was certainly well freed from the spleen and at no time was the spleen even in the view of dissection. The left and right crura were reapproximated with interrupted 0 silk suture with [place] felt pledgets soaked in Betadine. Closure with the two sutures allowed for passage of an index finger alongside the [place] esophagus. The closure sutures were used as a handle to elevate the preaortic fascia away from the underlying aorta as a more typical application of a Dixon cervical dilator into the preaortic space was quite unlikely given her body habitus and so on. Electronically Signed By: RAJIV GILES MD 10/29/20 1348 PATIENT NAME: RADHA ULRICH OPERATIVE REPORT DATE OF : [birth year] REPORT #: [id number] PHYSICIAN: RAJIV GILES MD PCP: ROMEL HOOK PAC REPORT IS CONFIDENTIAL AND NOT TO BE RELEASED WITHOUT AUTHORIZATION [facility] [address], [place] [address] Signed [place] clamps were applied to the anterior and posterior phrenoesophageal bundles. Using 0 Ethibond suture with [place] felt pledgets soaked in Betadine, repair sutures were placed including a seromuscular bite of the phrenoesophageal bundle. These were secured to the preaortic fascia sequentially. These were done in the classic technique of Laith. The sutures were secured with a single surgeon's throw to the preaortic fascia. Palpation through the stomach showed an optimal flap valve having been recreated in relation to the manometric tube. Preliminary pullout pressures were then undertaken. This showed a peak pressure approximately 25 mmHg over a 3 cm segment. The sutures were secured more fully and repeat pullout pressure undertaken confirming durable findings of reconstructive flap valve not excessively tight and unlikely to contribute to any dysphagia. The fundus of the stomach was secured to the tendon of the diaphragm with interrupted 2-0 silk sutures with [place] felt pledgets soaked in Betadine to avoid recurrent herniation of the fundus. Irrigation was undertaken fully. The left lateral segment of liver was unfolded and allowed to return to its natural anatomic position. Irrigation was undertaken. There was no sign of ongoing bleeding or other issues. On-Q pain pump catheters were placed in the layer superficial to the transversus abdominis bilaterally in a subcostal position flushed with 60 mL of 0.25% Marcaine with epinephrine. Plans were then made for closure. The omentum was replaced over the abdominal viscera. Midline fascia was reapproximated with running bidirectional #1 PDS suture. Subcutaneous tissue was irrigated and skin closed with a running subcuticular 3-0 Vicryl. Steri-Strips were applied as was an Acticoat dressing. The On-Q pain pump catheters were secured with OpSite and attached to the bulb device. The patient was ultimately extubated and transferred to the recovery room in good condition having suffered no complication. Sponge, needle, and counts reported as correct x3. Total blood loss than 100 mL. The operation was prolonged, complicated, and difficult related to extensive adhesions and so on, but it was accomplished safely. Rajiv Giles MD Electronically Signed By: RAJIV GILES MD 10/29/20 1348 PATIENT NAME: RADHA ULRICH SHADY GROVE OPERATIVE REPORT DATE OF : [birth year] REPORT #: [id number] PHYSICIAN: RAJIV GILES MD PCP: ROMEL HOOK PAC REPORT IS CONFIDENTIAL AND NOT TO BE RELEASED WITHOUT AUTHORIZATION [facility] [address] [place] [address] Signed /NATHAN /[id number] cc: KIARA Adair MD James D Ward, DO Copies: ROMEL HOOK CYNTHIA SUE MD WARD, JAMES D DO ~ Electronically Signed By: RAJIV GILES MD 10/29/20 1348 [facility] RE[facility] DATE OF : [birth year] REPORT #: [id number] PHYSICIAN: RAJIV GILES MD PCP: ROMEL HOOK REPORT IS CONFIDENTIAL AND NOT TO BE RELEASED WITHOUT AUTHORIZATION
--- NOTE | 2020-10-29 13:48 | DS ---
[facility] [address], [place] [address] Signed ADMISSION DATE: 10/25/2020 DISCHARGE DATE: 10/29/2020 REASON FOR ADMISSION: This 25-year-old white woman is a patient of DEJAH Adair and Dr. Kailash Willis DO. and has a complex past history of tracheoesophageal fistula repair in the infancy as well as subsequent Dulce fundoplication while in [place] at age 4 for intractable reflux problems. In the past several years, she has had increased worsening of reflux and dysphagia problems. She underwent upper endoscopy by ri which showed a complex recurrent hiatal hernia typical of a "slipped Dulce" anatomy. A video esophagram was performed on September 13, 2020 showing a number of findings of concern including caliber change in the upper esophagus, likely related to prior tracheoesophageal fistula repair, but a patulous appearance of the esophagus at the level of the gera and barium passage delay in the mid to distal esophagus with regurgitation into the mouth on dry swallows and poor passage and progression of contrast in the stomach. A lobulated essentially segmented stomach was noted related to recurrent hiatal hernia with at least half the stomach above the diaphragm. A very small esophageal diverticulum was noted as well. The patient's dominant complaint was that of severe difficulty swallowing. She is admitted at this time to undergo Hill repair (reconstruction of the gastroesophageal junction with posterior gastropexy) with intraoperative manometrics. She and her mother understand the risks of bleeding, infection, failure of operation, and other unforeseen complication and wished to proceed. HOSPITAL COURSE: The patient was admitted and underwent the aforementioned operation of Hill repair. Hers was a complex operation particularly related to multiple adhesions of the intraabdominal cavity. This included relatively hypertrophied left lateral segment of liver with extensive adhesions to the anterior abdominal wall and laterally as well. Ultimately, however, with considerable effort, the anatomy was well defined, herniated stomach reduced and posterior gastropexy performed. Repair of the esophageal hiatus was undertaken as well. Intraoperative manometrics showed a peak pressure of 25 mmHg over a 3 cm segment. A nasogastric tube was left in place overnight. She was taken back to the regular nursing floor and pain medication included a MANAGER CAR device as the on-Q pain pump catheters were less effective than hoped for in controlling her pain. She was begun on clear liquids the following day upon removal of her nasogastric tube and advanced to full liquid and ultimately, a mechanical soft diet with no bread and no meat. Electronically Signed By: RAJIV GILES MD 10/29/20 1348 PATIENT NAME: RADHA ULRICH ZWOLLE DISCHARGE SUMMARY DATE OF : [birth year] REPORT #: [id number] PHYSICIAN: RAJIV GILES MD PCP: PAOLA HOOK PAC REPORT IS CONFIDENTIAL AND NOT TO BE RELEASED WITHOUT AUTHORIZATION [address] [address] Signed The patient had remarkable improvement of her swallowing. An upper GI was performed on the 3rd postoperative day to define the anatomy. The ugi showed optimal improvement. All of the stomach was well below the diaphragm. The flap valve appears to be good and there is no evidence of reflux or impediment of contrast flow. By the day of discharge, she is ambulating well tolerating a mechanical soft diet with no meat and no bread and feeling very well. It is anticipated she will maintain the restricted diet for at least four weeks until I see her back in the office. She will be discharged to home to avoid lifting more than 20 pounds for the next 4 weeks. DISCHARGE MEDICATIONS: Include: 1. Dilaudid 2-4 mg p.o. q.4 hours as needed for pain #20. 2. Tylenol 500 mg tablets two tablets p.o. q.6 hours as needed for pain #60. 3. Famotidine 20 mg p.o. q.12 hours #60 refill one (ultimately to discontinue this I am sure). 4. She will continue usual medication of lorazepam, Ativan 2 mg q.12 hours as needed for anxiety, albuterol 1-2 puffs q.4-6 hours as needed for dyspnea (likely not to be needed). 5. Escitalopram oxalate 20 mg p.o. daily for "mood.". 6. Latuda 20 mg p.o. daily. 7. Valacyclovir 500 mg tablet p.o. daily. She will additionally continue with her sucralfate 1 g every 12 hours, but is instructed to dissolve it in water. She will unlikely need this going forward, but it was a preoperative medicine that we will continue for the moment. DISCHARGE DIAGNOSES: 1. Severe distal dysphagia related to failed Dulce fundoplication in childhood with complex hiatal hernia, now status post Hill posterior gastropexy with monometry October. 2. Tracheoesophageal fistula repair in infancy. 3. Psychologic disorder. 4. Reactive airways likely from gastroesophageal reflux. She will call Saturday to set up appointment for four weeks. Rajiv Giles MD Electronically Signed By: RAJIV GILES MD 10/29/20 1348 PATIENT NAME: RADHA ULRICH DISCHARGE SUMMARY DATE OF : [birth year] REPORT #: [id number] PHYSICIAN: RAJIV GILES MD PCP: PAOLA HOOK REPORT IS CONFIDENTIAL AND NOT TO BE RELEASED WITHOUT AUTHORIZATION [address] [place], [place] [address] Signed ERICA/NATHAN /[id number] cc: DO Paola Wasserman PA-C Cynthia Sue Holmes, MD Copies: KAILASH WILLIS ERIKA PAC HOLMES, CYNTHIA SUE MD ~ Electronically Signed By: RAJIV GILES MD 10/29/20 1348 PATIENT NAME: RADHA ULRICH ZWOLLE DISCHARGE SUMMARY DATE OF : [birth year] REPORT #: [id number] PHYSICIAN: RAJIV GILES MD PCP: PAOLA HOOK REPORT IS CONFIDENTIAL AND NOT TO BE RELEASED WITHOUT AUTHORIZATION
== END 2020-10-29 10:44 | disposition home or self-care (01) | DRG 328 ==
LOC: DS 10-25 08:30 → MS 10-25 08:40 → EDSTATUS 10-25 10:45 → MS 10-25 10:45 → DS 10-25 10:45 → MS 10-29 10:44
PROVIDERS: ADMIT Surgery; ATTEND Surgery
PROC: 0DN Gastrointestinal System, Release (ICD-10-PCS; 2020-10-25)
PROC: 0BQT0ZZ Repair Diaphragm, Open Approach (ICD-10-PCS; 2020-10-25)
PROC: 0DS60ZZ Reposition Stomach, Open Approach (ICD-10-PCS; principal; 2020-10-25 10:45)
DX: K44.9 Diaphragmatic hernia without obstruction or gangrene (principal); R13.19 Other dysphagia; K66.0 Peritoneal adhesions (postprocedural) (postinfection); K21.9 Gastro-esophageal reflux disease without esophagitis; J45.909 Unspecified asthma, uncomplicated; E66.9 Obesity, unspecified; F32.9 Major depressive disorder, single episode, unspecified; Z79.899 Other long term (current) drug therapy; Z88.2 Allergy status to sulfonamides; Z68.30 Body mass index [BMI] 30.0-30.9, adult
CPT/HCPCS: 00790; 36415; 74246; 85025; J0131; J0690; J1100; J1170; J1644; J1885; J2001; J2060; J2250; J2270; J2405; J2704; J3010; J7121

== ENCOUNTER 2021-07-17 22:32 | Emergency (ER) | payer BC, OTHER ==
[~2021-07-17] VITALS: Ht 162.6 cm; Wt 79.4 kg
[~2021-07-17 22:32] MED LIST changes: +ACETAMINOPHEN500 MG PO; +FAMOTIDINE20 MG PO; +HYDROMORPHONE HC2 MG PO; +SUCRALFATE1 GM/10 ML PO; +VALACYCLOVIR500 MG PO
--- OUTSIDE RECORDS SUMMARY | 2021-07-17 22:34 | XMS ---
PreManage Notification: RADHA ULRICH Security Pants Cutter Events No recent Security Events currently on file CRITERIA MET - PDMP CARE PROVIDERS ROMEL HOOK Physician Process Design Chemical Engineer 07/11/2020-Current PHONE: Unknown [facility], Clinic/Center: [facility] PHONE: Unknown Tenisha has no Care Guidelines for this patient. Kashif VISIT COUNT (12 MO.) 1 TIM Garcia TOTAL 1 NOTE: Visits indicate total known visits. ED/UCC VISIT TRACKING (12 MO.) 07/17/2021 22:32 [facility] TYPE: Emergency COMPLAINT: - ABD PAIN INPATIENT VISIT TRACKING (12 MO.) 10/25/2020 08:40 [facility] TYPE: Medical Surgical COMPLAINT: - RECONSTRUCTION OF GASTROESOPHAGEAL JUNCTION DIAGNOSES: - Other long term acute care registered nurse (current) drug therapy - Other residential (current) drug therapy - Unspecified asthma, uncomplicated - Body mass index [BMI]30.0-30.9, adult - Nausea with vomiting, unspecified - Gastro-esophageal reflux disease without esophagitis - Major depressive disorder, single episode, unspecified - Gastro-esophageal reflux disease without esophagitis - Diaphragmatic hernia without obstruction or gangrene - Allergy status to sulfonamides - Body mass index [BMI]30.0-30.9, adult - Obesity, unspecified - Other dysphagia - Other dysphagia - Peritoneal adhesions (postprocedural) (postinfection) - Mental disorder, not otherwise specified - Allergy status to sulfonamides - Obesity, unspecified - Unspecified asthma, uncomplicated - Peritoneal adhesions (postprocedural) (postinfection) [email or web address]
[2021-07-17] MEDS ORDERED: ARIPIPRAZOLE2 MG PO (22:48)
[2021-07-17] MEDS ORDERED: LITHIUM CARBON300 MG PO (22:48)
[2021-07-17] MEDS ORDERED: GUANFACINE HCL E4 MG PO (22:49)
[2021-07-17] MEDS ORDERED: GUAIFENESIN AC473 ML PO (23:28)
== END 2021-07-17 23:50 | disposition home or self-care (01) ==
LOC: ED 22:32
DX: K46.9 Unspecified abdominal hernia without obstruction or gangrene (principal); J45.909 Unspecified asthma, uncomplicated; Z88.2 Allergy status to sulfonamides; Z88.1 Allergy status to other antibiotic agents; Z79.899 Other long term (current) drug therapy
CPT/HCPCS: 99283

== ENCOUNTER 2022-03-23 12:51 | Emergency (ER) | payer BC, OTHER ==
[~2022-03-23] VITALS: Ht 162.6 cm; Wt 86.2 kg
[~2022-03-23 12:51] MED LIST changes: +ARIPIPRAZOLE2 MG PO; +BENZONATATE200 MG PO; +DEPAKOTE ER250 MG PO; +DEXTROAMP-AMPHE10 MG PO; +FLOVENT DISKUS50 MCG INH; +GUAIFENESIN AC473 ML PO; +GUANFACINE HCL E1 MG PO; +GUANFACINE HCL E4 MG PO; +LITHIUM CARBON300 MG PO; +OXYCODON-ACETA1 EAC2 PO
--- OUTSIDE RECORDS SUMMARY | 2022-03-23 12:54 | XMS ---
PreManage Notification: RADHA ULRICH Security Lathe Winder Events No recent Security Events currently on file CRITERIA MET - PDMP CARE PROVIDERS ROMEL HOOK Physician Manager Cardiovascular 07/11/2020-Current PHONE: Unknown [facility], Clinic/Center: [facility] PHONE: Unknown Tenisha has no Care Guidelines for this patient. Kahsif VISIT COUNT (12 MO.) 2 TIM Garcia TOTAL 2 NOTE: Visits indicate total known visits. ED/UCC VISIT TRACKING (12 MO.) 03/23/2022 12:52 [facility] TYPE: Emergency COMPLAINT: - POSS LITHIUM POISONING 07/17/2021 22:32 [facility] TYPE: Emergency COMPLAINT: - ABD PAIN DIAGNOSES: - Other usp (current) drug therapy - Unspecified asthma, uncomplicated - Allergy status to other antibiotic agents - Unspecified abdominal hernia without obstruction or gangrene - Allergy status to sulfonamides - Unspecified abdominal pain INPATIENT VISIT TRACKING (12 MO.) No inpatient visits to display in this time frame [email or web address]
[2022-03-23] MEDS ORDERED: LORATADINE10 MG PO (13:11)
[2022-03-23] MEDS ORDERED: VALACYCLOVIR1000 MG PO (13:11)
[2022-03-23] MEDS ORDERED: FLUTICASONE PRO16 GM NAS (13:11)
== END 2022-03-23 14:32 | disposition home or self-care (01) ==
LOC: ED 12:51
DX: T56.891A Toxic effect of other metals, accidental (unintentional), initial encounter (principal); R19.7 Diarrhea, unspecified; R11.10 Vomiting, unspecified; T43.595A Adverse effect of other antipsychotics and neuroleptics, initial encounter; J45.909 Unspecified asthma, uncomplicated; Z88.2 Allergy status to sulfonamides; Z88.8 Allergy status to other drugs, medicaments and biological substances
CPT/HCPCS: 36415; 80053; 80178; 84703; 85025; 96360; 99284-25; J7030

== ENCOUNTER 2022-04-27 16:38 | Emergency (ER) | payer BC, OTHER ==
[~2022-04-27] VITALS: Ht 162.6 cm; Wt 86.2 kg
[~2022-04-27 16:38] MED LIST changes: +FLUTICASONE PRO16 GM NAS; +LORATADINE10 MG PO; +VALACYCLOVIR1000 MG PO
--- OUTSIDE RECORDS SUMMARY | 2022-04-27 16:40 | XMS ---
PreManage Notification: RADHA ULRICH Security Psychological Tests Sales Agent Events No recent Security Events currently on file CRITERIA MET - PDMP CARE PROVIDERS ROMEL HOOK Physician Guitar Maker Hand 07/11/2020-Current PHONE: Unknown [facility], Clinic[facility]Center: [facility] PHONE: Unknown Tenisha has no Care Guidelines for this patient. Kashif VISIT COUNT (12 MO.) 3 TIM Garcia TOTAL 3 NOTE: Visits indicate total known visits. ED/UCC VISIT TRACKING (12 MO.) 04/27/2022 16:39 [facility] TYPE: Emergency COMPLAINT: - VOMITING 03/23/2022 12:52 [facility] TYPE: Emergency COMPLAINT: - POSS LITHIUM POISONING DIAGNOSES: - Diarrhea, unspecified - Allergy status to other drugs, medicaments and biological substances - Adverse effect of other antipsychotics and neuroleptics, initial encounter - Allergy status to sulfonamides - Vomiting, unspecified - Toxic effect of other metals, accidental (unintentional), initial encounter - Unspecified asthma, uncomplicated 07/17/2021 22:[address] [facility] [place] TYPE: Emergency COMPLAINT: - ABD PAIN DIAGNOSES: - Other half-way (current) drug therapy - Unspecified asthma, uncomplicated - Allergy status to other antibiotic agents - Unspecified abdominal hernia without obstruction or gangrene - Allergy status to sulfonamides - Unspecified abdominal pain INPATIENT VISIT TRACKING (12 MO.) No inpatient visits to display in this time frame [email or web address]
[2022-04-27] MEDS ORDERED: ONDANSETRON ODT8 MG PO (21:56)
--- NOTE | 2022-04-29 17:24 | EKG ---
[facility] [address] [place] [address] Signed Normal sinus rhythm with sinus arrhythmia Cannot rule out Anterior infarct , age undetermined Abnormal ECG When compared with ECG of 08-JUL-2020 08:30, No significant change was found Confirmed by April Latif MD () on 04/29/2022 5:24:30 PM Electronically Signed By: APRIL LATIF MD 04/29/22 1724 PATIENT NAME: RADHA ULRICH Electrocardiogram DATE OF : [birth year] PHYSICIAN: APRIL LATIF MD REPORT #: [id number] REPORT IS CONFIDENTIAL AND NOT TO BE RELEASED WITHOUT AUTHORIZATION
== END 2022-04-27 22:09 | disposition home or self-care (01) ==
LOC: ED 16:38
DX: T56.891A Toxic effect of other metals, accidental (unintentional), initial encounter (principal); R11.2 Nausea with vomiting, unspecified; R19.7 Diarrhea, unspecified; J45.909 Unspecified asthma, uncomplicated; Z88.2 Allergy status to sulfonamides; Z88.1 Allergy status to other antibiotic agents; Z79.899 Other long term (current) drug therapy
CPT/HCPCS: 36415; 80053; 80178; 81001; 83690; 84703; 85025; 93005; 93010; 96361; 96374; 96375; 96376; 99284-25; A9270; G0480; J2405; J2550; J7030

== ENCOUNTER 2022-05-20 03:31 | Emergency (ER) | payer BC, OTHER ==
[~2022-05-20] VITALS: Ht 162.6 cm; Wt 86.2 kg
--- OUTSIDE RECORDS SUMMARY | 2022-05-20 03:34 | XMS ---
PreManage Notification: RADHA ULRICH Security Eight Section Blower Events No recent Security Events currently on file CRITERIA MET - [facility] - [facility] - 2 Visits in 30 Days CARE PROVIDERS ROMEL HOOK Physician [employer] Buffer 07/11/2020-Current PHONE: Unknown [facility], [facility] PHONE: Unknown Tenisha has no Care Guidelines for this patient. EVeronica VISIT COUNT (12 MO.) [address] [place] [address] TOTAL 4 NOTE: Visits indicate total known visits. ED/UCC VISIT TRACKING (12 MO.) 05/20/2022 03:33 [facility] TYPE: Emergency COMPLAINT: - OD 04/27/2022 16:39 [facility] TYPE: Emergency COMPLAINT: - VOMITING DIAGNOSES: - Diarrhea, unspecified - Unspecified asthma, uncomplicated - Other snf (current) drug therapy - Allergy status to sulfonamides - Nausea with vomiting, unspecified - Toxic effect of other metals, accidental (unintentional), initial encounter - Allergy status to other antibiotic agents 03/23/2022 12:52 [facility] TYPE: Emergency COMPLAINT: - POSS LITHIUM POISONING DIAGNOSES: - Adverse effect of other antipsychotics and neuroleptics, initial encounter - Allergy status to sulfonamides - Vomiting, unspecified - Toxic effect of other metals, accidental (unintentional), initial encounter - Unspecified asthma, uncomplicated - Diarrhea, unspecified - Allergy status to other drugs, medicaments and biological substances 07/17/2021 22:32 [facility] TYPE: Emergency COMPLAINT: - ABD PAIN DIAGNOSES: - Allergy status to other antibiotic agents - Unspecified abdominal hernia without obstruction or gangrene - Allergy status to sulfonamides - Unspecified abdominal pain - Other snf (current) drug therapy - Unspecified asthma, uncomplicated INPATIENT VISIT TRACKING (12 MO.) No inpatient visits to display in this time frame [id number]
[2022-05-20] MEDS ORDERED: ADDERALL XR 2020 MG PO (03:41)
[2022-05-20] MEDS ORDERED: DEXTROAMP-AMPHE20 MG PO (03:41)
--- NOTE | 2022-05-20 12:27 | EKG ---
[facility] [address] [facility] [place] [address] Signed Sinus tachycardia Cannot rule out Inferior infarct , age undetermined Cannot rule out Anterior infarct (cited on or before 27-APR-2022) Abnormal ECG When compared with ECG of 27-APR-2022 17:49, Vent. rate has increased BY 53 BPM Nonspecific T wave abnormality now evident in Lateral leads Confirmed by LORRAINE ASKEW MD ([id number]) on 05/20/2022 12:27:19 PM Electronically Signed By: LORRAINE ASKEW MD 05/20/22 1227 PATIENT NAME: RADHA ULRICH SIDNEY Electrocardiogram DATE OF : [birth year] PHYSICIAN: LORRAINE ASKEW MD REPORT #: [id number] REPORT IS CONFIDENTIAL AND NOT TO BE RELEASED WITHOUT AUTHORIZATION
== END 2022-05-20 05:37 | disposition home or self-care (01) ==
LOC: ED 03:31
DX: F12.980 Cannabis use, unspecified with anxiety disorder (principal); J45.909 Unspecified asthma, uncomplicated; Z88.2 Allergy status to sulfonamides; Z88.1 Allergy status to other antibiotic agents; Z79.899 Other long term (current) drug therapy
CPT/HCPCS: 36415; 80053; 84703; 85025; 93005; 93010; 96374; 99284-25; J2060

== ENCOUNTER 2022-06-05 09:02 | Day surgery (SDC) | payer BC, OTHER ==
[~2022-06-05] VITALS: Ht 162.6 cm; Wt 89.6 kg
[~2022-06-05 09:02] MED LIST changes: +ADDERALL XR 2020 MG PO; +DEXTROAMP-AMPHE20 MG PO
--- NOTE | 2022-06-05 11:12 | NUR ---
06/05/22 1112 Ginger Arnold 1106 PATIENT ARRIVES TO PACU AWAKE BUT DROWSY. RESP EVEN AND UNLABORED, MASK AT 8 LITERS, TURNED OFF ON ARRIVAL TO PACU, ROOM AIR SATS 98%. ONLY COMPLAINS OF RECTAL PAIN.
--- NOTE | 2022-06-05 16:33 | OR ---
[facility] [address] [place], [place] [address] Signed DATE OF OPERATION: 06/05/2022 SURGEON: Isabell Gilbert MD PREOPERATIVE DIAGNOSES: 1. Chronic diarrhea. 2. Hemorrhoids. 3. Laparoscopic cholecystectomy in 2016. POSTOPERATIVE DIAGNOSES: 1. Moderate internal and external hemorrhoids. 2. Irritated, but healing external hemorrhoid, posterior midline. PROCEDURE: Colonoscopy with random cold biopsies. ESTIMATED BLOOD LOSS: None. INDICATIONS: Radha is a 26-year-old lady asked to see me for chronic diarrhea and hemorrhoids. She said she had diarrhea long before the gallbladder was removed. She said her diarrhea is often yellow or green. She has used loperamide as needed. She has not tried cholestyramine. She has one son who was born vaginally. She told me that her job requires that she sits most of the day. She has been having trouble with hemorrhoids. She describes intermittent bleeding and possibly a thrombosed hemorrhoid. She had been to her primary care provider. She has been trying preparation H. She was asked to see me with respect to the above. In the office, we had a long discussion, reviewing her previous records and her current situation. She wanted to wait for a formal rectal exam until after the colonoscopy. I gave her a brochure on hemorrhoids and we reviewed the conservative versus the surgical treatment of hemorrhoids. I gave her a brochure on colonoscopy. We reviewed the nature of the test. She understands there is risk including, but not limited to gas bloating, crampy abdominal pain, bleeding, perforation requiring surgery, and missed diagnosis. We reviewed the need for IV conscious sedation. We were concerned in the office that our standard Versed and fentanyl might not be enough. Then this morning, she told us that she has frequently been awake during procedures and it has been a terrible experience. She had expressed understanding and wished to proceed. PROCEDURE NOTE: Electronically Signed By: ISABELL GILBERT MD 06/05/22 1633 PATIENT NAME: RADHA ULRICH MAYWOOD OPERATIVE REPORT DATE OF : [birth year] REPORT #: [id number] PHYSICIAN: ISABELL GILBERT MD PCP: PAOLA HOOK PAC REPORT IS CONFIDENTIAL AND NOT TO BE RELEASED WITHOUT AUTHORIZATION [facility] [address] [place], [place] [address] Signed Radha was taken into our endoscopy suite and placed in the left lateral decubitus position. She was little anxious as expected. We gave her 6 mg of Versed and 100 mcg of fentanyl and she was wide awake and talking to us and answering appropriately. Therefore, we asked that an anesthesia provider come and help with some monitored anesthesia care. That proved to be a coles decision as she took an enormous amount of propofol to sedate her and keep her sedated throughout the procedure. Once she was sedated, we examined the anus. She has at least three external hemorrhoids. One is in the posterior midline. The other two are at the 1 and 11 o'clock positions. In the posterior midline that hemorrhoid has been ulcerated and I am sure that is the one that is bled given her the most trouble. She has good sphincter tone on digital rectal exam. There were no masses. After this the adult colonoscope had been introduced and advanced all around into the cecum under direct visualization of the camera. Again, it took additional doses of propofol in order to advance the scope. Her prep was excellent. We could easily see the appendiceal orifice and ileocecal valve. The scope was then slowly withdrawn. We saw no pathology throughout the entire colon or rectum. We took random biopsies throughout the colon or rectum because of the history of diarrhea. The scope had been retroflexed in the rectum and she does have some internal hemorrhoids. There was one that is small to moderate in size. Although, it does not appear irritated today. After this, the gas was suctioned out and the colonoscope removed. Radha tolerated the procedure quite well after the addition of propofol. RECOMMENDATIONS: I will see Radha back in my office in 7 to 14 days to review the biopsy results. I think she would do fine with conservative measures for the hemorrhoids, but if she wants to have that irritated hemorrhoid removed that is certainly possible in the operating room. Isabell Gilbert MD ALB/MODL /[id number] cc: MD Paola Patino PA-C Electronically Signed By: ISABELL GILBERT MD 06/05/22 1633 PATIENT NAME: RADHA ULRICH MAYWOOD OPERATIVE REPORT DATE OF : [birth year] REPORT #: [id number] PHYSICIAN: ISABELL GILBERT MD PCP: PAOLA HOOK PAC REPORT IS CONFIDENTIAL AND NOT TO BE RELEASED WITHOUT AUTHORIZATION [address] [address] Signed Copies: ISABELL GILBERT MD, ERIKA PAC ~ Electronically Signed By: ISABELL GILBERT MD 06/05/22 1633 PATIENT NAME: IVETT ULRICHLENY MAYWOOD OPERATIVE REPORT DATE OF : [birth year] REPORT #: [id number] PHYSICIAN: ISABELL GILBERT MD PCP: PAOLA HOOK REPORT IS CONFIDENTIAL AND NOT TO BE RELEASED WITHOUT AUTHORIZATION
--- NOTE | 2022-06-07 12:35 | PATH ---
[facility] [address] [place], [place] [address] Signed SPECIMEN(S): A RANDOM COLON BIOPSY SPECIMEN SOURCE: A. RANDOM COLON BIOPSY CLINICAL HISTORY: Pre: History of diarrhea, hemorrhoids. Post: External hemorrhoids FINAL PATHOLOGIC DIAGNOSIS: Random colon biopsy: - Benign colonic mucosa, negative for pathologic inflammation. JVR:[id number] MICROSCOPIC EXAMINATION: Histologic sections of all submitted blocks are examined by light microscopy. These findings, together with the gross examination, support the pathologic diagnosis. GROSS DESCRIPTION: The specimen, labeled "SN, random colon biopsy," is received in formalin and consists of four mortensen soft tissue fragments that measure 0.6 to 0.8 cm in greatest dimension. The specimen is entirely submitted in cassette (A1). HH (under the direct supervision of a pathologist) The Gross Description was prepared using a voice recognition system. The report was reviewed for accuracy; however, sound-alike word errors, addition and/or deletions may occur. If there is any question about this report, please contact Client Services. PERFORMING LABORATORY: The technical component was performed by [facility], [address] [place] [id number] (CLIA# [id number]). Professional interpretation was performed by [facility] - [facility], [address] [place] [id number] (CLIA#: [id number]). Diagnostician: Clemente Maxwell MD Pathologist Electronically Signed 06/07/2022 [facility] DATE [facility] : [birth year] REPORT #: [id number] PHYSICIAN: KATHERINE RAE PCP: ROMEL HOOK PAC REPORT IS CONFIDENTIAL AND NOT TO BE RELEASED WITHOUT AUTHORIZATION
== END 2022-06-05 11:30 | disposition home or self-care (01) ==
LOC: OPS 09:02 → DS 09:02 → OPS 10:30
PROVIDERS: ATTEND Colon & Rectal Surgery
PROC: 0DBE8ZX Excision of Large Intestine, Via Natural or Artificial Opening Endoscopic, Diagnostic (ICD-10-PCS; 2022-06-05)
PROC: 0DBP8ZX Excision of Rectum, Via Natural or Artificial Opening Endoscopic, Diagnostic (ICD-10-PCS; principal; 2022-06-05 10:30)
DX: K52.9 Noninfective gastroenteritis and colitis, unspecified (principal); K64.4 Residual hemorrhoidal skin tags; K64.8 Other hemorrhoids
CPT/HCPCS: 36415; 84703; 99153; G0500; J2250; J2704; J3010; J7121

== ENCOUNTER 2023-02-28 21:38 | Emergency (ER) | payer OTHER ==
[~2023-02-28] VITALS: Ht 162.6 cm; Wt 92.1 kg
--- OUTSIDE RECORDS SUMMARY | ~2023-02-28 | XMS | Continuity of Care Document ---
Demographics + + + | Address | [address] | | | [place] [address] | + + + | Preferred Language | Unknown | + + + | Marital Status | Never | + + + | Episcopal Affiliation | Unknown | + + + | Race | White | + + + | Ethnic Group | Not or | + + + Author + + + | Author | [facility] | + + + | Organization | [facility] | + + + | Address | [address] | | | [place] [address] | + + + | Phone | | + + + Care Team Providers + + + + | Care Forensic Structural Engineer Name | Role | Phone | + + + + Unavailable | Unavailable | + + + + Unavailable | Unavailable | + + + + Allergies and Intolerances + + + + + + | date | description | facility | reaction | severity | + + + + + + | (no date) | | [facility] | (no reaction) | (no severity) | | | Sulfamethoxazol [facility] | | | + + + + + + | (no date) | Trimethoprim | [facility] | (no reaction) | (no severity) | | | [facility] | | | + + + + + + | (no date) | Mild | [facility] | (no reaction) | (no severity) | | | [facility] | | | + + + + + + | (no date) | Fever | [facility] | (no reaction) | (no severity) | | | [facility] | | | + + + + + + | (no date) | Hydrocodone | [facility] | (no reaction) | (no severity) | | [facility] | | | + + + + + + | (no date) | Diarrhea | [facility] | (no reaction) | (no severity) | | | [facility] | | | + + + + + + | (no date) | Hydrocodone | [facility] | (no reaction) | (no severity) | | [facility] | | | + + + + + + | (no date) | Trimethoprim | [facility] | (no reaction) | (no severity) | | | [facility] | | | + + + + + + | (no date) | | [facility] | (no reaction) | (no severity) | | | Sulfamethoxazol | [facility] | | | + + + + + + Encounters No information. Functional Status No information. Immunizations + + + + | date | description | facility | + + + + | 2020-05-19 00:00 | Influenza, Injectable, | [facility] | | | Quadrivalent, Preservative | | + + + + Medications + + + + | date | description | facility | + + + + | 2022-03-23 00:00 | OXYCODONE | [facility] | | | HCL/ACETAMINOPHEN | | + + + + | 2022-04-27 00:00 | OXYCODONE | [facility] | | | HCL/ACETAMINOPHEN | | + + + + | 2022-05-20 00:00 | OXYCODONE | [facility] | | | HCL/ACETAMINOPHEN | | + + + + | 2022-06-05 00:00 | OXYCODONE | [facility] | | | HCL/ACETAMINOPHEN | | + + + + | 2022-03-23 00:00 | LAMOTRIGINE | [facility] | + + + + | 2022-04-27 00:00 | LAMOTRIGINE | [facility] | + + + + | 2022-05-20 00:00 | LAMOTRIGINE | [facility] | + + + + | 2022-06-05 00:00 | LAMOTRIGINE | [facility] | + + + + | 2022-03-23 00:00 | LURASIDONE HCL | [facility] | + + + + | 2022-04-27 00:00 | LURASIDONE HCL | [facility] | + + + + | 2022-05-20 00:00 | LURASIDONE HCL | [facility] | + + + + | 2022-06-05 00:00 | LURASIDONE HCL | [facility] | + + + + | 2022-03-23 00:00 | ISOTRETINOIN | [facility] | + + + + | 2022-04-27 00:00 | ISOTRETINOIN | [facility] | + + + + | 2022-05-20 00:00 | ISOTRETINOIN | [facility] | + + + + | 2022-06-05 00:00 | ISOTRETINOIN | [facility] | + + + + | 2022-03-23 00:00 | HYDROCODONE | [facility] | | | BIT/ACETAMINOPHEN | | + + + + | 2022-04-27 00:00 | HYDROCODONE | [facility] | | | BIT/ACETAMINOPHEN | | + + + + | 2022-05-20 00:00 | HYDROCODONE | [facility] | | | BIT/ACETAMINOPHEN | | + + + + | 2022-06-05 00:00 | HYDROCODONE | [facility] | | | BIT/ACETAMINOPHEN | | + + + + | 2017-03-23 00:00 | LIDOCAINE | [facility] | + + + + | 2022-03-23 00:00 | NITROFURANTOIN | [facility] | | | MACROCRYSTAL | | + + + + | 2022-04-27 00:00 | NITROFURANTOIN | [facility] | | | MACROCRYSTAL | | + + + + | 2022-05-20 00:00 | NITROFURANTOIN | [facility] | | | MACROCRYSTAL | | + + + + | 2022-06-05 00:00 | NITROFURANTOIN | [facility] | | | MACROCRYSTAL | | + + + + | 2022-03-23 00:00 | FLUTICASONE PROPIONATE 50 | [facility] | | | MCG | | + + + + | 2022-04-27 00:00 | FLUTICASONE PROPIONATE 50 | [facility] | | | [facility]CG | | + + + + | 2022-05-20 00:00 | FLUTICASONE PROPIONATE 50 | [facility] | | | MCG | | + + + + | 2022-06-05 00:00 | FLUTICASONE PROPIONATE 50 | [facility] | | | MCG | | + + + + | 2022-03-23 00:00 | CLONAZEPAM | [facility] | + + + + | 2022-04-27 00:00 | CLONAZEPAM | [facility] | + + + + | 2022-05-20 00:00 | CLONAZEPAM | [facility] | + + + + | 2022-06-05 00:00 | CLONAZEPAM | [facility] | + + + + | 2022-03-23 00:00 | clonAZEpam | [facility] | + + + + | 2022-04-27 00:00 | clonAZEpam | [facility] | + + + + | 2022-05-20 00:00 | clonAZEpam | [facility] | + + + + | 2022-06-05 00:00 | clonAZEpam | [facility] | + + + + | 2022-03-23 00:00 | IBUPROFEN | [facility] | + + + + | 2022-04-27 00:00 | IBUPROFEN | [facility] | + + + + | 2022-05-20 00:00 | IBUPROFEN | [facility] | + + + + | 2022-06-05 00:00 | IBUPROFEN | [facility] | + + + + | 2022-03-23 00:00 | IBUPROFEN | [facility] | + + + + | 2022-04-27 00:00 | IBUPROFEN | [facility] | + + + + | 2022-05-20 00:00 | IBUPROFEN | [facility] | + + + + | 2022-06-05 00:00 | IBUPROFEN | [facility] | + + + + | 2022-03-23 00:00 | LITHIUM CARBONATE | [facility] | + + + + | 2022-04-27 00:00 | LITHIUM CARBONATE | [facility] | + + + + | 2022-05-20 00:00 | LITHIUM CARBONATE | [facility] | + + + + | 2022-06-05 00:00 | LITHIUM CARBONATE | [facility] | + + + + | 2022-03-23 00:00 | | [facility] | | | SULFAMETHOXAZOLE/TRIMETHOPR | | | | IM | | + + + + | 2022-04-27 00:00 | | [facility] | | | SULFAMETHOXAZOLE/TRIMETHOPR | | | | IM | | + + + + | 2022-05-20 00:00 | | [facility] | | | SULFAMETHOXAZOLE/TRIMETHOPR | | | | IM | | + + + + | 2022-06-05 00:00 | | [facility] | | | SULFAMETHOXAZOLE/TRIMETHOPR | | | | IM | | + + + + | 2020-10-29 00:00 | ACETAMINOPHEN | [facility] | + + + + | 2022-03-23 00:00 | LORAZEPAM | [facility] | + + + + | 2022-04-27 00:00 | LORAZEPAM | [facility] | + + + + | 2022-05-20 00:00 | LORAZEPAM | [facility] | + + + + | 2022-06-05 00:00 | LORAZEPAM | [facility] | + + + + | 2022-03-23 00:00 | METOCLOPRAMIDE HCL | [facility] | + + + + | 2022-04-27 00:00 | METOCLOPRAMIDE HCL | [facility] | + + + + | 2022-05-20 00:00 | METOCLOPRAMIDE HCL | [facility] | + + + + | 2022-06-05 00:00 | METOCLOPRAMIDE HCL | [facility] | + + + + | 2022-03-23 00:00 | SERTRALINE HCL | [facility] | + + + + | 2022-04-27 00:00 | SERTRALINE HCL | [facility] | + + + + | 2022-05-20 00:00 | SERTRALINE HCL | [facility] | + + + + | 2022-06-05 00:00 | SERTRALINE HCL | [facility] | + + + + | 2022-03-23 00:00 | METHYLPREDNISOLONE | [facility] | + + + + | 2022-04-27 00:00 | METHYLPREDNISOLONE | [facility] | + + + + | 2022-05-20 00:00 | METHYLPREDNISOLONE | [facility] | + + + + | 2022-06-05 00:00 | METHYLPREDNISOLONE | [facility] | + + + + | 2022-03-23 00:00 | ALPRAZOLAM | [facility] | + + + + | 2022-04-27 00:00 | ALPRAZOLAM | [facility] | + + + + | 2022-05-20 00:00 | ALPRAZOLAM | [facility] | + + + + | 2022-06-05 00:00 | ALPRAZOLAM | [facility] | + + + + | 2020-10-29 00:00 | FAMOTIDINE | [facility] | + + + + | 2022-03-23 00:00 | LORATADINE | [facility] | + + + + | 2022-04-27 00:00 | LORATADINE | [facility] | + + + + | 2022-05-20 00:00 | LORATADINE | [facility] | + + + + | 2022-06-05 00:00 | LORATADINE | [facility] | + + + + | 2022-03-23 00:00 | METOCLOPRAMIDE HCL | [facility] | + + + + | 2022-04-27 00:00 | METOCLOPRAMIDE HCL | [facility] | + + + + | 2022-05-20 00:00 | METOCLOPRAMIDE HCL | [facility] | + + + + | 2022-06-05 00:00 | METOCLOPRAMIDE HCL | [facility] | + + + + | 2022-03-23 00:00 | METRONIDAZOLE | [facility] | + + + + | 2022-04-27 00:00 | METRONIDAZOLE | [facility] | + + + + | 2022-05-20 00:00 | METRONIDAZOLE | [facility] | + + + + | 2022-06-05 00:00 | METRONIDAZOLE | [facility] | + + + + | 2022-03-23 00:00 | ONDANSETRON | [facility] | + + + + | 2022-04-27 00:00 | ONDANSETRON | [facility] | + + + + | 2022-05-20 00:00 | ONDANSETRON | [facility] | + + + + | 2022-06-05 00:00 | ONDANSETRON | [facility] | + + + + | 2020-10-29 00:00 | SUCRALFATE | [facility] | + + + + | 2022-03-23 00:00 | SUCRALFATE | [facility] | + + + + | 2022-04-27 00:00 | SUCRALFATE | [facility] | + + + + | 2022-05-20 00:00 | SUCRALFATE | [facility] | + + + + | 2022-06-05 00:00 | SUCRALFATE | [facility] | + + + + | 2022-03-23 00:00 | VALACYCLOVIR HCL | [facility] | + + + + | 2022-04-27 00:00 | VALACYCLOVIR HCL | [facility] | + + + + | 2022-05-20 00:00 | VALACYCLOVIR HCL | [facility] | + + + + | 2022-06-05 00:00 | VALACYCLOVIR HCL | [facility] | + + + + | 2022-03-23 00:00 | ACETAMINOPHEN | [facility] | + + + + | 2022-04-27 00:00 | ACETAMINOPHEN | [facility] | + + + + | 2022-05-20 00:00 | ACETAMINOPHEN | [facility] | + + + + | 2022-06-05 00:00 | ACETAMINOPHEN | [facility] | + + + + | 2022-03-23 00:00 | SUCRALFATE | [facility] | + + + + | 2022-04-27 00:00 | SUCRALFATE | [facility] | + + + + | 2022-05-20 00:00 | SUCRALFATE | [facility] | + + + + | 2022-06-05 00:00 | SUCRALFATE | [facility] | + + + + | 2022-03-23 00:00 | ESCITALOPRAM OXALATE | [facility] | + + + + | 2022-04-27 00:00 | ESCITALOPRAM OXALATE | [facility] | + + + + | 2022-05-20 00:00 | ESCITALOPRAM OXALATE | [facility] | + + + + | 2022-06-05 00:00 | ESCITALOPRAM OXALATE | [facility] | + + + + | 2022-03-23 00:00 | ESCITALOPRAM OXALATE | [facility] | + + + + | 2022-04-27 00:00 | ESCITALOPRAM OXALATE | [facility] | + + + + | 2022-05-20 00:00 | ESCITALOPRAM OXALATE | [facility] | + + + + | 2022-06-05 00:00 | ESCITALOPRAM OXALATE | [facility] | + + + + | 2022-03-23 00:00 | ARIPIPRAZOLE | [facility] | + + + + | 2022-04-27 00:00 | ARIPIPRAZOLE | [facility] | + + + + | 2022-05-20 00:00 | ARIPIPRAZOLE | [facility] | + + + + | 2022-06-05 00:00 | ARIPIPRAZOLE | [facility] | + + + + | 2022-03-23 00:00 | ESCITALOPRAM OXALATE | [facility] | + + + + | 2022-04-27 00:00 | ESCITALOPRAM OXALATE | [facility] | + + + + | 2022-05-20 00:00 | ESCITALOPRAM OXALATE | [facility] | + + + + | 2022-06-05 00:00 | ESCITALOPRAM OXALATE | [facility] | + + + + | 2022-03-23 00:00 | ARIPIPRAZOLE | [facility] | + + + + | 2022-04-27 00:00 | ARIPIPRAZOLE | [facility] | + + + + | 2022-05-20 00:00 | ARIPIPRAZOLE | [facility] | + + + + | 2022-06-05 00:00 | ARIPIPRAZOLE | [facility] | + + + + | 2022-03-23 00:00 | POTASSIUM CHLORIDE | [facility] | + + + + | 2022-04-27 00:00 | POTASSIUM CHLORIDE | [facility] | + + + + | 2022-05-20 00:00 | POTASSIUM CHLORIDE | [facility] | + + + + | 2022-06-05 00:00 | POTASSIUM CHLORIDE | [facility] | + + + + | 2022-03-23 00:00 | ALBUTEROL SULFATE | [facility] | + + + + | 2022-04-27 00:00 | ALBUTEROL SULFATE | [facility] | + + + + | 2022-05-20 00:00 | ALBUTEROL SULFATE | [facility] | + + + + | 2022-06-05 00:00 | ALBUTEROL SULFATE | [facility] | + + + + | 2022-03-23 00:00 | LEVONORGESTREL | [facility] | + + + + | 2022-04-27 00:00 | LEVONORGESTREL | [facility] | + + + + | 2022-05-20 00:00 | LEVONORGESTREL | [facility] | + + + + | 2022-06-05 00:00 | LEVONORGESTREL | [facility] | + + + + | 2017-02-15 00:00 | AMOXICILLIN/POTASSIUM CLAV | [facility] | | | | | + + + + | 2022-03-23 00:00 | CYCLOBENZAPRINE HCL | [facility] | + + + + | 2022-04-27 00:00 | CYCLOBENZAPRINE HCL | [facility] | + + + + | 2022-05-20 00:00 | CYCLOBENZAPRINE HCL | [facility] | + + + + | 2022-06-05 00:00 | CYCLOBENZAPRINE HCL | [facility] | + + + + | 2022-03-23 00:00 | ADAPALENE/BENZOYL PEROXIDE | [facility] | | | | | + + + + | 2022-04-27 00:00 | ADAPALENE/BENZOYL PEROXIDE | [facility] | | | | | + + + + | 2022-05-20 00:00 | ADAPALENE/BENZOYL PEROXIDE | [facility] | | | | | + + + + | 2022-06-05 00:00 | ADAPALENE/BENZOYL PEROXIDE | [facility] | | | | | + + + + | 2017-02-15 00:00 | HYDROCODONE | [facility] | | | BIT/ACETAMINOPHEN | | + + + + | 2022-03-23 00:00 | HYDROCODONE | [facility] | | | BIT/ACETAMINOPHEN | | + + + + | 2022-04-27 00:00 | HYDROCODONE | [facility] | | | BIT/ACETAMINOPHEN | | + + + + | 2022-05-20 00:00 | HYDROCODONE | [facility] | | | BIT/ACETAMINOPHEN | | + + + + | 2022-06-05 00:00 | HYDROCODONE | [facility] | | | BIT/ACETAMINOPHEN | | + + + + | 2022-05-20 00:00 | AMPHET ASP/AMPHET/D-AMPHET | [facility] | | | | | + + + + | 2022-05-20 00:00 | AMPHET ASP/AMPHET/D-AMPHET | [facility] | | | | | + + + + | 2022-06-05 00:00 | AMPHET ASP/AMPHET/D-AMPHET | [facility] | | | | | + + + + | 2020-10-29 00:00 | HYDROmorphone HCL | [facility] | + + + + | 2015-06-30 00:00 | PROMETHAZINE HCL | [facility] | + + + + | 2022-03-23 00:00 | PROMETHAZINE HCL | [facility] | + + + + | 2022-04-27 00:00 | PROMETHAZINE HCL | [facility] | + + + + | 2022-05-20 00:00 | PROMETHAZINE HCL | [facility] | + + + + | 2022-06-05 00:00 | PROMETHAZINE HCL | [facility] | + + + + | 2022-03-23 00:00 | PROMETHAZINE HCL | [facility] | + + + + | 2022-04-27 00:00 | PROMETHAZINE HCL | [facility] | + + + + | 2022-05-20 00:00 | PROMETHAZINE HCL | [facility] | + + + + | 2022-06-05 00:00 | PROMETHAZINE HCL | [facility] | + + + + Problems + + + + | date | description | facility | + + + + | 2015-06-30 00:00 | Vomiting | [facility] | + + + + | 2015-12-14 00:00 | Postoperative infection | [facility] | + + + + | 2015-12-30 00:00 | Abdominal pain | [facility] | + + + + | 2017-02-15 00:00 | Cyst of Bartholin's gland | [facility] | | | duct | | + + + + | 2017-03-23 00:00 | Vaginal pain | [facility] | + + + + | 2017-04-09 00:00 | Depression with suicidal | [facility] | | | ideation | | + + + + | 2017-05-25 00:00 | | [facility] | + + + + | 2020-07-08 00:00 | Hypokalemia | [facility] | + + + + | 2020-07-08 00:00 | Paresthesia | [facility] | + + + + | 2021-07-17 00:00 | Abdominal hernia | [facility] | + + + + | 2022-03-23 00:00 | Adverse effect of lithium | [facility] | + + + + | 2022-04-27 00:00 | Parmele toxicity | [facility] | + + + + Procedures No information. Results/Labs +--------+--------+ +---------+--------+---------+ | test | date | facility | value | unit | notes | +--------+--------+ +---------+--------+---------+ + + | Result panel 1 | + + + + + +------+ + + | | 2022-03-23 | [facility] | 29 | (missing) | (missing) | | (unavailable | 13:05 [facility] | | | | + + + +------+ + + + + | Result panel 2 | + + + + + +------+ + + | | 2022-03-23 | [facility] | 83 | (missing) | (missing) | | (unavailable | 13:05 [facility] | | | | + + + +------+ + + + + | Result panel 3 | + + + + + + + + + | | 2022-03-23 | [facility] | NEGATIVE | (missing) | (missing) | | (unavailable | 13:05 [facility] | | | | + + + + + + + + + | Result panel 4 | + + + + + +-------+ + + | | 2022-03-23 | [facility] | 1.4 | (missing) | (missing) | | (unavailable | 13:05 [facility] | | | | + + + +-------+ + + + + | Result panel 5 | + + + + + +-------+ + + | | 2022-03-23 | [facility] | 6.5 | (missing) | (missing) | | (unavailable | 13:05 [facility] | | | | + + + +-------+ + + + + | Result panel 6 | + + + + + +--------+ + + | | 2022-03-23 | [facility] | 5.22 | (missing) | (missing) | | (unavailable | 13:05 [facility] | | | | + + + +--------+ + + + + | Result panel 7 | + + + + + +--------+ + + | | 2022-03-23 | [facility] | 14.7 | (missing) | (missing) | | (unavailable | 13:05 [facility] | | | | + + + +--------+ + + + + | Result panel 8 | + + + + + +--------+ + + | | 2022-03-23 | [facility] | 45.6 | (missing) | (missing) | | (unavailable | 13:05 [facility] | | | | + + + +--------+ + + + + | Result panel 9 | + + + + + +--------+ + + | | 2022-03-23 | [facility] | 87.3 | (missing) | (missing) | | (unavailable | 13:05 [facility] | | | | + + + +--------+ + + + + | Result panel 10 | + + + + + +--------+ + + | | 2022-03-23 | [facility] | 28.1 | (missing) | (missing) | | (unavailable | 13:05 [facility] | | | | + + + +--------+ + + + + | Result panel 11 | + + + + + +--------+ + + | | 2022-03-23 | [facility] | 32.2 | (missing) | (missing) | | (unavailable | 13:05 [facility] | | | | + + + +--------+ + + + + | Result panel 12 | + + + + + +--------+ + + | | 2022-03-23 | [facility] | 14.6 | (missing) | (missing) | | (unavailable | 13:05 [facility] | | | | + + + +--------+ + + + + | Result panel 13 | + + + + + +-------+ + + | | 2022-03-23 | [facility] | 383 | (missing) | (missing) | | (unavailable | 13:05 [facility] | | | | + + + +-------+ + + + + | Result panel 14 | + + + + + +--------+ + + | | 2022-03-23 | [facility] | 67.6 | (missing) | (missing) | | (unavailable | 13:05 [facility] | | | | + + + +--------+ + + + + | Result panel 15 | + + + + + +--------+ + + | | 2022-03-23 | [facility] | 22.0 | (missing) | (missing) | | (unavailable | 13:05 [facility] | | | | + + + +--------+ + + + + | Result panel 16 | + + + + + +-------+ + + | | 2022-03-23 | [facility] | 7.7 | (missing) | (missing) | | (unavailable | 13:05 [facility] | | | | + + + +-------+ + + + + | Result panel 17 | + + + + + +-------+ + + | | 2022-03-23 | [facility] | 2.0 | (missing) | (missing) | | (unavailable | 13:05 [facility] | | | | + + + +-------+ + + + + | Result panel 18 | + + + + + +-------+ + + | | 2022-03-23 | [facility] | 0.7 | (missing) | (missing) | | (unavailable | 13:05 [facility] | | | | + + + +-------+ + + + + | Result panel 19 | + + + + + +-------+---------+ + | | 2022-03-23 | [facility] | 117 | mg/dL | (missing) | | (unavailable | 13:05 [facility] | | | | + + + +-------+---------+ + + + | Result panel 20 | + + + + + +------+---------+ + | | 2022-03-23 | [facility] | 13 | mg/dL | (missing) | | (unavailable | 13:05 [facility] | | | | + + + +------+---------+ + + + | Result panel 21 | + + + + + +--------+---------+ + | | 2022-03-23 | [facility] | 1.01 | mg/dL | (missing) | | (unavailable | 13:05 [facility] | | | | + + + +--------+---------+ + + + | Result panel 22 | + + + + + +------+ + + | | 2022-03-23 | [facility] | 79 | (missing) | (missing) | | (unavailable | 13:05 [facility] | | | | + + + +------+ + + + + | Result panel 23 | + + + + + +---------+ + + | | 2022-03-23 | [facility] | 12.87 | (missing) | (missing) | | (unavailable | 13:05 [facility] | | | | + + + +---------+ + + + + | Result panel 24 | + + + + + +-------+ + + | | 2022-03-23 | [facility] | 138 | (missing) | (missing) | | (unavailable | 13:05 [facility] | | | | + + + +-------+ + + + + | Result panel 25 | + + + + + +-------+ + + | | 2022-03-23 | [facility] | 3.4 | (missing) | (missing) | | (unavailable | 13:05 [facility] | | | | + + + +-------+ + + + + | Result panel 26 | + + + + + +-------+ + + | | 2022-03-23 | [facility] | 104 | (missing) | (missing) | | (unavailable | 13:05 [facility] | | | | + + + +-------+ + + + + | Result panel 27 | + + + + + +------+ + + | | 2022-03-23 | [facility] | 26 | (missing) | (missing) | | (unavailable | 13:05 [facility] | | | | + + + +------+ + + + + | Result panel 28 | + + + + + +--------+ + + | | 2022-03-23 | [facility] | 11.4 | (missing) | (missing) | | (unavailable | 13:05 [facility] | | | | + + + +--------+ + + + + | Result panel 29 | + + + + + +-------+---------+ + | | 2022-03-23 | [facility] | 9.0 | mg/dL | (missing) | | (unavailable | 13:05 [facility] | | | | + + + +-------+---------+ + + + | Result panel 30 | + + + + + +-------+ + + | | 2022-03-23 | [facility] | 8.1 | (missing) | (missing) | | (unavailable | 13:05 [facility] | | | | + + + +-------+ + + + + | Result panel 31 | + + + + + +-------+ + + | | 2022-03-23 | [facility] | 4.1 | (missing) | (missing) | | (unavailable | 13:05 [facility] | | | | + + + +-------+ + + + + | Result panel 32 | + + + + + +-------+ + + | | 2022-03-23 | [facility] | 4.0 | (missing) | (missing) | | (unavailable | 13:05 | [facility] | | | | + + + +-------+ + + + + | Result panel 33 | + + + + + +--------+ + + | | 2022-03-23 | [facility] | 1.03 | (missing) | (missing) | | (unavailable | 13:05 | [facility] | | | | + + + +--------+ + + + + | Result panel 34 | + + + + + +-------+ + + | | 2022-03-23 | [facility] | 0.5 | (missing) | (missing) | | (unavailable | 13:05 | [facility] | | | | + + + +-------+ + + + + | Result panel 35 | + + + + + +------+ + + | | 2022-03-23 | [facility] | 20 | (missing) | (missing) | | (unavailable | 13:05 | [facility] | | | | + + + +------+ + + + + | Result panel 36 | + + + + + +-------+ + + | | 2022-04-27 | [facility] | 7.5 | (missing) | (missing) | | (unavailable | 16:50 | [facility] | | | | + + + +-------+ + + + + | Result panel 37 | + + + + + +--------+ + + | | 2022-04-27 | [facility] | 5.25 | (missing) | (missing) | | (unavailable | 16:50 | [facility] | | | | + + + +--------+ + + + + | Result panel 38 | + + + + + +--------+ + + | | 2022-04-27 | [facility] | 15.0 | (missing) | (missing) | | (unavailable | 16:50 | [facility] | | | + + + +--------+ + + + + | Result panel 39 | + + + + + +--------+ + + | | 2022-04-27 | [facility] | 46.5 | (missing) | (missing) | | (unavailable | 16:50 [facility] | | | + + + +--------+ + + + + | Result panel 40 | + + + + + +--------+ + + | | 2022-04-27 | [facility] | 88.7 | (missing) | (missing) | | (unavailable | 16:50 [facility] | | | + + + +--------+ + + + + | Result panel 41 | + + + + + +--------+ + + | | 2022-04-27 | [facility] | 28.6 | (missing) | (missing) | | (unavailable | 16:50 [facility] | | | + + + +--------+ + + + + | Result panel 42 | + + + + + +--------+ + + | | 2022-04-27 | [facility] | 32.2 | (missing) | (missing) | | (unavailable | 16:50 [facility] | | | + + + +--------+ + + + + | Result panel 43 | + + + + + +--------+ + + | | 2022-04-27 | [facility] | 14.6 | (missing) | (missing) | | (unavailable | 16:50 [facility] | | | + + + +--------+ + + + + | Result panel 44 | + + + + + +-------+ + + | | 2022-04-27 | [facility] | 370 | (missing) | (missing) | | (unavailable | 16:50 [facility] | | | + + + +-------+ + + + + | Result panel 45 | + + + + + +--------+ + + | | 2022-04-27 | [facility] | 70.0 | (missing) | (missing) | | (unavailable | 16:50 [facility] | | | + + + +--------+ + + + + | Result panel 46 | + + + + + +--------+ + + | | 2022-04-27 | [facility] | 22.5 | (missing) | (missing) | | (unavailable | 16:50 | [facility] | | | + + + +--------+ + + + + | Result panel 47 | + + + + + +-------+ + + | | 2022-04-27 | [facility] | 6.9 | (missing) | (missing) | | (unavailable | 16:50 [facility] | | | + + + +-------+ + + + + | Result panel 48 | + + + + + +-------+ + + | | 2022-04-27 | [facility] | 0.3 | (missing) | (missing) | | (unavailable | 16:50 | [facility] | | | + + + +-------+ + + + + | Result panel 49 | + + + + + +-------+ + + | | 2022-04-27 | [facility] | 0.3 | (missing) | (missing) | | (unavailable | 16:50 | [facility] | | | + + + +-------+ + + + + | Result panel 50 | + + + + + + + + + | | 2022-04-27 | [facility] | YELLOW | (missing) | (missing) | | (unavailable | 16:50 | [facility] | | | + + + + + + + + + | Result panel 51 | + + + + + +---------+ + + | | 2022-04-27 | [facility] | CLEAR | (missing) | (missing) | | (unavailable | 16:50 | [facility] | | | + + + +---------+ + + + + | Result panel 52 | + + + + + + + + + | | 2022-04-27 | [facility] | NEGATIVE | (missing) | (missing) | | (unavailable | 16:50 | [facility] | | | + + + + + + + + + | Result panel 53 | + + + + + + + + + | | 2022-04-27 | [facility] | NEGATIVE | (missing) | (missing) | | (unavailable | 16:50 [facility] | | | + + + + + + + + + | Result panel 54 | + + + + + + + + + | | 2022-04-27 | [facility] | NEGATIVE | (missing) | (missing) | | (unavailable | 16:50 [facility] | | | + + + + + + + + + | Result panel 55 | + + + + + +---------+ + + | | 2022-04-27 | [facility] | 1.010 | (missing) | (missing) | | (unavailable | 16:50 [facility] | | | + + + +---------+ + + + + | Result panel 56 | + + + + + + + + + | | 2022-04-27 | [facility] | NEGATIVE | (missing) | (missing) | | (unavailable | 16:50 [facility] | | | + + + + + + + + + | Result panel 57 | + + + + + +-------+ + + | | 2022-04-27 | [facility] | 7.0 | (missing) | (missing) | | (unavailable | 16:50 [facility] | | | + + + +-------+ + + + + | Result panel 58 | + + + + + + + + + | | 2022-04-27 | [facility] | NEGATIVE | (missing) | (missing) | | (unavailable | 16:50 [facility] | | | + + + + + + + + + | Result panel 59 | + + + + + + + + + | | 2022-04-27 | [facility] | NORMAL | (missing) | (missing) | | (unavailable | 16:50 | [facility] | | | + + + + + + + + + | Result panel 60 | + + + + + + + + + | | 2022-04-27 | [facility] | NEGATIVE | (missing) | (missing) | | (unavailable | 16:50 | [facility] | | | + + + + + + + + + | Result panel 61 | + + + + + + + + + | | 2022-04-27 | [facility] | NEGATIVE | (missing) | (missing) | | (unavailable | 16:50 | [facility] | | | + + + + + + + + + | Result panel 62 | + + + + + + + + + | | 2022-04-27 | [facility] | CLEAN CATCH | (missing) | (missing) | | (unavailable | 16:50 | [facility] | | | + + + + + + + + + | Result panel 63 | + + + + + +-------+---------+ + | | 2022-04-27 | [facility] | 141 | mg/dL | (missing) | | (unavailable | 16:50 | [facility] | | | + + + +-------+---------+ + + + | Result panel 64 | + + + + + +-----+---------+ + | | 2022-04-27 | [facility] | 5 | mg/dL | (missing) | | (unavailable | 16:50 [facility] | | | | + + + +-----+---------+ + + + | Result panel 65 | + + + + + +--------+---------+ + | | 2022-04-27 | [facility] | 0.88 | mg/dL | (missing) | | (unavailable | 16:50 [facility] | | | + + + +--------+---------+ + + + | Result panel 66 | + + + + + +------+ + + | | 2022-04-27 | [facility] | 93 | (missing) | (missing) | | (unavailable | 16:50 [facility] | | | + + + +------+ + + + + | Result panel 67 | + + + + + +--------+ + + | | 2022-04-27 | [facility] | 5.68 | (missing) | (missing) | | (unavailable | 16:50 [facility] | | | + + + +--------+ + + + + | Result panel 68 | + + + + + +-------+ + + | | 2022-04-27 | [facility] | 135 | (missing) | (missing) | | (unavailable | 16:50 | [facility] | | | + + + +-------+ + + + + | Result panel 69 | + + + + + +-------+ + + | | 2022-04-27 | [facility] | 3.2 | (missing) | (missing) | | (unavailable | 16:50 [facility] | | | + + + +-------+ + + + + | Result panel 70 | + + + + + +-------+ + + | | 2022-04-27 | [facility] | 100 | (missing) | (missing) | | (unavailable | 16:50 | [facility] | | | + + + +-------+ + + + + | Result panel 71 | + + + + + +------+ + + | | 2022-04-27 | [facility] | 25 | (missing) | (missing) | | (unavailable | 16:50 [facility] | | | + + + +------+ + + + + | Result panel 72 | + + + + + +--------+ + + | | 2022-04-27 | [facility] | 13.2 | (missing) | (missing) | | (unavailable | 16:50 [facility] | | | + + + +--------+ + + + + | Result panel 73 | + + + + + +-------+---------+ + | | 2022-04-27 | [facility] | 8.4 | mg/dL | (missing) | | (unavailable | 16:50 [facility] | | | + + + +-------+---------+ + + + | Result panel 74 | + + + + + +-------+ + + | | 2022-04-27 | [facility] | 7.8 | (missing) | (missing) | | (unavailable | 16:50 [facility] | | | + + + +-------+ + + + + | Result panel 75 | + + + + + +-------+ + + | | 2022-04-27 | [facility] | 3.7 | (missing) | (missing) | | (unavailable | 16:50 [facility] | | | + + + +-------+ + + + + | Result panel 76 | + + + + + +-------+ + + | | 2022-04-27 | [facility] | 4.1 | (missing) | (missing) | | (unavailable | 16:50 [facility] | | | + + + +-------+ + + + + | Result panel 77 | + + + + + +--------+ + + | | 2022-04-27 | [facility] | 0.90 | (missing) | (missing) | | (unavailable | 16:50 [facility] | | | + + + +--------+ + + + + | Result panel 78 | + + + + + +-------+ + + | | 2022-04-27 | [facility] | 0.4 | (missing) | (missing) | | (unavailable | 16:50 [facility] | | | + + + +-------+ + + + + | Result panel 79 | + + + + + +------+ + + | | 2022-04-27 | [facility] | 28 | (missing) | (missing) | | (unavailable | 16:50 [facility] | | | + + + +------+ + + + + | Result panel 80 | + + + + + +------+ + + | | 2022-04-27 | [facility] | 42 | (missing) | (missing) | | (unavailable | 16:50 [facility] | | | + + + +------+ + + + + | Result panel 81 | + + + + + +------+ + + | | 2022-04-27 | [facility] | 93 | (missing) | (missing) | | (unavailable | 16:50 | [facility] | | | + + + +------+ + + + + | Result panel 82 | + + + + + +------+ + + | | 2022-04-27 | [facility] | 61 | (missing) | (missing) | | (unavailable | 16:50 [facility] | | | + + + +------+ + + + + | Result panel 83 | + + + + + + + + + | | 2022-04-27 | [facility] | NEGATIVE | (missing) | (missing) | | (unavailable | 16:50 | [facility] | | | + + + + + + + + + | Result panel 84 | + + + + + +-----+ + + | | 2022-04-27 | [facility] | 0 | (missing) | (missing) | | (unavailable | 16:50 [facility] | | | + + + +-----+ + + + + | Result panel 85 | + + + + + +------+ + + | | 2022-04-27 | [facility] | // | (missing) | (missing) | | (unavailable | 16:50 [facility] | | | + + + +------+ + + + + | Result panel 86 | + + + + + +-------+---------+ + | | 2022-04-27 | [facility] | 0.9 | mg/dL | (missing) | | (unavailable | 16:50 | [facility] | | | + + + +-------+---------+ + + + | Result panel 87 | + + + + + +------+ + + | | 2022-04-27 | [facility] | // | (missing) | (missing) | | (unavailable | 16:50 [facility] | | | + + + +------+ + + + + | Result panel 88 | + + + + + +------+ + + | | 2022-04-27 | [facility] | 67 | (missing) | (missing) | | (unavailable | 16:50 | [facility] | | | + + + +------+ + + + + | Result panel 89 | + + + + + + + + + | | 2022-04-27 | [facility] | YELLOW | (missing) | (missing) | | (unavailable | 16:50 [facility] | | | + + + + + + + + + | Result panel 90 | + + + + + +---------+ + + | | 2022-04-27 | [facility] | CLEAR | (missing) | (missing) | | (unavailable | 16:50 [facility] | | | + + + +---------+ + + + + | Result panel 91 | + + + + + + + + + | | 2022-04-27 | [facility] | NEGATIVE | (missing) | (missing) | | (unavailable | 16:50 [facility] | | | + + + + + + + + + | Result panel 92 | + + + + + + + + + | | 2022-04-27 | [facility] | NEGATIVE | (missing) | (missing) | | (unavailable | 16:50 [facility] | | | + + + + + + + + + | Result panel 93 | + + + + + + + + + | | 2022-04-27 | [facility] | NEGATIVE | (missing) | (missing) | | (unavailable | 16:50 | [facility] | | | + + + + + + + + + | Result panel 94 | + + + + + +---------+ + + | | 2022-04-27 | [facility] | 1.010 | (missing) | (missing) | | (unavailable | 16:50 | [facility] | | | | + + + +---------+ + + + + | Result panel 95 | + + + + + + + + + | | 2022-04-27 | [facility] | NEGATIVE | (missing) | (missing) | | (unavailable | 16:50 [facility] | | | | + + + + + + + + + | Result panel 96 | + + + + + +-------+ + + | | 2022-04-27 | [facility] | 7.0 | (missing) | (missing) | | (unavailable | 16:50 [facility] | | | | + + + +-------+ + + + + | Result panel 97 | + + + + + + + + + | | 2022-04-27 | [facility] | NEGATIVE | (missing) | (missing) | | (unavailable | 16:50 | [facility] | | | + + + + + + + + + | Result panel 98 | + + + + + + + + + | | 2022-04-27 | [facility] | NORMAL | (missing) | (missing) | | (unavailable | 16:50 [facility] | | | + + + + + + + + + | Result panel 99 | + + + + + + + + + | | 2022-04-27 | [facility] | NEGATIVE | (missing) | (missing) | | (unavailable | 16:50 [facility] | | | | + + + + + + + + + | Result panel 100 | + + + + + + + + + | | 2022-04-27 | [facility] | NEGATIVE | (missing) | (missing) | | (unavailable | 16:50 | [facility] | | | | + + + + + + + + + | Result panel 101 | + + + + + + + + + | | 2022-04-27 | [facility] | CLEAN CATCH | (missing) | (missing) | | (unavailable | 16:50 | [facility] | | | | + + + + + + + + + | Result panel 102 | + + + + + +------+ + + | | 2022-04-27 | [facility] | 61 | (missing) | (missing) | | (unavailable | 16:50 [facility] | | | + + + +------+ + + + + | Result panel 103 | + + + + + +-----+ + + | | 2022-04-27 | [facility] | 0 | (missing) | (missing) | | (unavailable | 16:50 [facility] | | | | + + + +-----+ + + + + | Result panel 104 | + + + + + +------+ + + | | 2022-04-27 | [facility] | // | (missing) | (missing) | | (unavailable | 16:50 [facility] | | | + + + +------+ + + + + | Result panel 105 | + + + + + +-------+---------+ + | | 2022-04-27 | [facility] | 0.9 | mg/dL | (missing) | | (unavailable | 16:50 [facility] | | | + + + +-------+---------+ + + + | Result panel 106 | + + + + + +------+ + + | | 2022-04-27 | [facility] | // | (missing) | (missing) | | (unavailable | 16:50 [facility] | | | + + + +------+ + + + + | Result panel 107 | + + + + + +------+ + + | | 2022-04-27 | [facility] | 67 | (missing) | (missing) | | (unavailable | 16:50 [facility] | | | + + + +------+ + + + + | Result panel 108 | + + + + + +-------+ + + | | 2022-04-27 | [facility] | 1.1 | (missing) | (missing) | | (unavailable | 21:09 | [facility] | | | + + + +-------+ + + + + | Result panel 109 | + + + + + +------+ + + | | 2022-04-27 | [facility] | // | (missing) | (missing) | | (unavailable | 21:09 [facility] | | | + + + +------+ + + + + | Result panel 110 | + + + + + +-------+ + + | | 2022-04-27 | [facility] | 1.1 | (missing) | (missing) | | (unavailable | 21:09 [facility] | | | + + + +-------+ + + + + | Result panel 111 | + + + + + +------+ + + | | 2022-04-27 | [facility] | // | (missing) | (missing) | | (unavailable | 21:09 [facility] | | | + + + +------+ + + + + | Result panel 112 | + + + + + +-------+ + + | | 2022-05-20 | [facility] | 6.2 | (missing) | (missing) | | (unavailable | 03:36 [facility] | | | + + + +-------+ + + + + | Result panel 113 | + + + + + +--------+ + + | | 2022-05-20 | [facility] | 33.1 | (missing) | (missing) | | (unavailable | 03:36 [facility] | | | + + + +--------+ + + + + | Result panel 114 | + + + + + +--------+ + + | | 2022-05-20 | [facility] | 53.7 | (missing) | (missing) | | (unavailable | 03:36 [facility] | | | + + + +--------+ + + + + | Result panel 115 | + + + + + +-------+ + + | | 2022-05-20 | [facility] | 9.1 | (missing) | (missing) | | (unavailable | 03:36 [facility] | | | + + + +-------+ + + + + | Result panel 116 | + + + + + +-------+ + + | | 2022-05-20 | [facility] | 3.3 | (missing) | (missing) | | (unavailable | 03:36 [facility] | | | + + + +-------+ + + + + | Result panel 117 | + + + + + +-------+ + + | | 2022-05-20 | [facility] | 0.8 | (missing) | (missing) | | (unavailable | 03:36 [facility] | | | + + + +-------+ + + + + | Result panel 118 | + + + + + +-------+---------+ + | | 2022-05-20 | [facility] | 120 | mg/dL | (missing) | | (unavailable | 03:36 [facility] | | | + + + +-------+---------+ + + + | Result panel 119 | + + + + + +-------+ + + | | 2022-05-20 | [facility] | 6.2 | (missing) | (missing) | | (unavailable | 03:36 [facility] | | | + + + +-------+ + + + + | Result panel 120 | + + + + + +-----+---------+ + | | 2022-05-20 | [facility] | 9 | mg/dL | (missing) | | (unavailable | 03:36 [facility] | | | + + + +-----+---------+ + + + | Result panel 121 | + + + + + +--------+ + + | | 2022-05-20 | [facility] | 4.79 | (missing) | (missing) | | (unavailable | 03:36 [facility] | | | + + + +--------+ + + + + | Result panel 122 | + + + + + +--------+ + + | | 2022-05-20 | [facility] | 13.7 | (missing) | (missing) | | (unavailable | 03:36 [facility] | | | + + + +--------+ + + + + | Result panel 123 | + + + + + +--------+ + + | | 2022-05-20 | [facility] | 42.1 | (missing) | (missing) | | (unavailable | 03:36 [facility] | | | + + + +--------+ + + + + | Result panel 124 | + + + + + +--------+ + + | | 2022-05-20 | [facility] | 87.9 | (missing) | (missing) | | (unavailable | 03:36 [facility] | | | + + + +--------+ + + + + | Result panel 125 | + + + + + +--------+ + + | | 2022-05-20 | [facility] | 28.5 | (missing) | (missing) | | (unavailable | 03:36 [facility] | | | + + + +--------+ + + + + | Result panel 126 | + + + + + +--------+ + + | | 2022-05-20 | [facility] | 32.5 | (missing) | (missing) | | (unavailable | 03:36 [facility] | | | + + + +--------+ + + + + | Result panel 127 | + + + + + +--------+ + + | | 2022-05-20 | [facility] | 14.0 | (missing) | (missing) | | (unavailable | 03:36 [facility] | | | + + + +--------+ + + + + | Result panel 128 | + + + + + +-------+ + + | | 2022-05-20 | [facility] | 336 | (missing) | (missing) | | (unavailable | 03:36 [facility] | | | + + + +-------+ + + + + | Result panel 129 | + + + + + +--------+ + + | | 2022-05-20 | [facility] | 33.1 | (missing) | (missing) | | (unavailable | 03:36 [facility] | | | + + + +--------+ + + + + | Result panel 130 | + + + + + +--------+ + + | | 2022-05-20 | [facility] | 53.7 | (missing) | (missing) | | (unavailable | 03:36 [facility] | | | + + + +--------+ + + + + | Result panel 131 | + + + + + +--------+---------+ + | | 2022-05-20 | [facility] | 0.92 | mg/dL | (missing) | | (unavailable | 03:36 [facility] | | | + + + +--------+---------+ + + + | Result panel 132 | + + + + + +-------+ + + | | 2022-05-20 | [facility] | 9.1 | (missing) | (missing) | | (unavailable | 03:36 [facility] | | | + + + +-------+ + + + + | Result panel 133 | + + + + + +-------+ + + | | 2022-05-20 | [facility] | 3.3 | (missing) | (missing) | | (unavailable | 03:36 [facility] | | | + + + +-------+ + + + + | Result panel 134 | + + + + + +-------+ + + | | 2022-05-20 | [facility] | 0.8 | (missing) | (missing) | | (unavailable | 03:36 [facility] | | | + + + +-------+ + + + + | Result panel 135 | + + + + + +-------+---------+ + | | 2022-05-20 | [facility] | 120 | mg/dL | (missing) | | (unavailable | 03:36 [facility] | | | + + + +-------+---------+ + + + | Result panel 136 | + + + + + +-----+---------+ + | | 2022-05-20 | [facility] | 9 | mg/dL | (missing) | | (unavailable | 03:36 [facility] | | | + + + +-----+---------+ + + + | Result panel 137 | + + + + + +--------+---------+ + | | 2022-05-20 | [facility] | 0.92 | mg/dL | (missing) | | (unavailable | 03:36 [facility] | | | + + + +--------+---------+ + + + | Result panel 138 | + + + + + +------+ + + | | 2022-05-20 | [facility] | 89 | (missing) | (missing) | | (unavailable | 03:36 [facility] | | | + + + +------+ + + + + | Result panel 139 | + + + + + +--------+ + + | | 2022-05-20 | [facility] | 9.78 | (missing) | (missing) | | (unavailable | 03:36 [facility] | | | + + + +--------+ + + + + | Result panel 140 | + + + + + +-------+ + + | | 2022-05-20 | [facility] | 139 | (missing) | (missing) | | (unavailable | 03:36 [facility] | | | + + + +-------+ + + + + | Result panel 141 | + + + + + +-------+ + + | | 2022-05-20 | [facility] | 3.6 | (missing) | (missing) | | (unavailable | 03:36 [facility] | | | + + + +-------+ + + + + | Result panel 142 | + + + + + +------+ + + | | 2022-05-20 | [facility] | 89 | (missing) | (missing) | | (unavailable | 03:36 [facility] | | | + + + +------+ + + + + | Result panel 143 | + + + + + +-------+ + + | | 2022-05-20 | [facility] | 102 | (missing) | (missing) | | (unavailable | 03:36 [facility] | | | | + + + +-------+ + + + + | Result panel 144 | + + + + + +------+ + + | | 2022-05-20 | [facility] | 23 | (missing) | (missing) | | (unavailable | 03:36 [facility] | | | | + + + +------+ + + + + | Result panel 145 | + + + + + +--------+ + + | | 2022-05-20 | [facility] | 17.6 | (missing) | (missing) | | (unavailable | 03:36 [facility] | | | | + + + +--------+ + + + + | Result panel 146 | + + + + + +-------+---------+ + | | 2022-05-20 | [facility] | 8.4 | mg/dL | (missing) | | (unavailable | 03:36 [facility] | | | | + + + +-------+---------+ + + + | Result panel 147 | + + + + + +-------+ + + | | 2022-05-20 | [facility] | 7.0 | (missing) | (missing) | | (unavailable | 03:36 [facility] | | | | + + + +-------+ + + + + | Result panel 148 | + + + + + +-------+ + + | | 2022-05-20 | [facility] | 3.2 | (missing) | (missing) | | (unavailable | 03:36 [facility] | | | | + + + +-------+ + + + + | Result panel 149 | + + + + + +-------+ + + | | 2022-05-20 | [facility] | 3.8 | (missing) | (missing) | | (unavailable | 03:36 [facility] | | | | + + + +-------+ + + + + | Result panel 150 | + + + + + +--------+ + + | | 2022-05-20 | [facility] | 0.84 | (missing) | (missing) | | (unavailable | 03:36 [facility] | | | | + + + +--------+ + + + + | Result panel 151 | + + + + + +-------+ + + | | 2022-05-20 | [facility] | 0.3 | (missing) | (missing) | | (unavailable | 03:36 [facility] | | | | + + + +-------+ + + + + | Result panel 152 | + + + + + +------+ + + | | 2022-05-20 | [facility] | 31 | (missing) | (missing) | | (unavailable | 03:36 [facility] | | | | + + + +------+ + + + + | Result panel 153 | + + + + + +--------+ + + | | 2022-05-20 | [facility] | 9.78 | (missing) | (missing) | | (unavailable | 03:36 [facility] | | | | + + + +--------+ + + + + | Result panel 154 | + + + + + +------+ + + | | 2022-05-20 | [facility] | 39 | (missing) | (missing) | | (unavailable | 03:36 [facility] | | | | + + + +------+ + + + + | Result panel 155 | + + + + + +------+ + + | | 2022-05-20 | [facility] | 94 | (missing) | (missing) | | (unavailable | 03:36 [facility] | | | | + + + +------+ + + + + | Result panel 156 | + + + + + +--------+ + + | | 2022-05-20 | [facility] | 4.79 | (missing) | (missing) | | (unavailable | 03:36 | [facility] | | | | + + + +--------+ + + + + | Result panel 157 | + + + + + +-------+ + + | | 2022-05-20 | [facility] | 139 | (missing) | (missing) | | (unavailable | 03:36 | [facility] | | | | + + + +-------+ + + + + | Result panel 158 | + + + + + +-------+ + + | | 2022-05-20 | [facility] | 3.6 | (missing) | (missing) | | (unavailable | 03:36 | [facility] | | | | + + + +-------+ + + + + | Result panel 159 | + + + + + +-------+ + + | | 2022-05-20 | [facility] | 102 | (missing) | (missing) | | (unavailable | 03:36 | [facility] | | | | + + + +-------+ + + + + | Result panel 160 | + + + + + +------+ + + | | 2022-05-20 | [facility] | 23 | (missing) | (missing) | | (unavailable | 03:36 | [facility] | | | | + + + +------+ + + + + | Result panel 161 | + + + + + +--------+ + + | | 2022-05-20 | [facility] | 17.6 | (missing) | (missing) | | (unavailable | 03:36 | [facility] | | | | + + + +--------+ + + + + | Result panel 162 | + + + + + +-------+---------+ + | | 2022-05-20 | [facility] | 8.4 | mg/dL | (missing) | | (unavailable | 03:36 | [facility] | | | | + + + +-------+---------+ + + + | Result panel 163 | + + + + + +-------+ + + | | 2022-05-20 | [facility] | 7.0 | (missing) | (missing) | | (unavailable | 03:36 | [facility] | | | | + + + +-------+ + + + + | Result panel 164 | + + + + + +-------+ + + | | 2022-05-20 | [facility] | 3.2 | (missing) | (missing) | | (unavailable | 03:36 | [facility] | | | | + + + +-------+ + + + + | Result panel 165 | + + + + + +-------+ + + | | 2022-05-20 | [facility] | 3.8 | (missing) | (missing) | | (unavailable | 03:36 | [facility] | | | | + + + +-------+ + + + + | Result panel 166 | + + + + + +--------+ + + | | 2022-05-20 | [facility] | 0.84 | (missing) | (missing) | | (unavailable | 03:36 | [facility] | | | | + + + +--------+ + + + + | Result panel 167 | + + + + + +--------+ + + | | 2022-05-20 | [facility] | 13.7 | (missing) | (missing) | | (unavailable | 03:36 | [facility] | | | | + + + +--------+ + + + + | Result panel 168 | + + + + + +-------+ + + | | 2022-05-20 | [facility] | 0.3 | (missing) | (missing) | | (unavailable | 03:36 | [facility] | | | | + + + +-------+ + + + + | Result panel 169 | + + + + + +------+ + + | | 2022-05-20 | [facility] | 31 | (missing) | (missing) | | (unavailable | 03:36 | [facility] | | | | + + + +------+ + + + + | Result panel 170 | + + + + + +------+ + + | | 2022-05-20 | [facility] | 39 | (missing) | (missing) | | (unavailable | 03:36 | [facility] | | | | + + + +------+ + + + + | Result panel 171 | + + + + + +------+ + + | | 2022-05-20 | [facility] | 94 | (missing) | (missing) | | (unavailable | 03:36 | [facility] | | | | + + + +------+ + + + + | Result panel 172 | + + + + + + + + + | | 2022-05-20 | [facility] | NEGATIVE | (missing) | (missing) | | (unavailable | 03:36 | [facility] | | | | + + + + + + + + + | Result panel 173 | + + + + + +--------+ + + | | 2022-05-20 | [facility] | 42.1 | (missing) | (missing) | | (unavailable | 03:36 | [facility] | | | | + + + +--------+ + + + + | Result panel 174 | + + + + + +--------+ + + | | 2022-05-20 | [facility] | 87.9 | (missing) | (missing) | | (unavailable | 03:36 | [facility] | | | | + + + +--------+ + + + + | Result panel 175 | + + + + + +--------+ + + | | 2022-05-20 | [facility] | 28.5 | (missing) | (missing) | | (unavailable | 03:36 | [facility] | | | | + + + +--------+ + + + + | Result panel 176 | + + + + + +--------+ + + | | 2022-05-20 | [facility] | 32.5 | (missing) | (missing) | | (unavailable | 03:36 | [facility] | | | | + + + +--------+ + + + + | Result panel 177 | + + + + + +--------+ + + | | 2022-05-20 | [facility] | 14.0 | (missing) | (missing) | | (unavailable | 03:36 | [facility] | | | | + + + +--------+ + + + + | Result panel 178 | + + + + + +-------+ + + | | 2022-05-20 | [facility] | 336 | (missing) | (missing) | | (unavailable | 03:36 | [facility] | | | | + + + +-------+ + + + + | Result panel 179 | + + + + + + + + + | | 2022-05-20 | [facility] | POSITIVE | (missing) | (missing) | | (unavailable | 03:54 | [facility] | | | | + + + + + + + + + | Result panel 180 | + + + + + + + + + | | 2022-05-20 | [facility] | POSITIVE | (missing) | (missing) | | (unavailable | 03:54 | [facility] | | | | + + + + + + + + + | Result panel 181 | + + + + + + + + + | | 2022-05-20 | [facility] | NEGATIVE | (missing) | (missing) | | (unavailable | 03:54 | [facility] | | | | + + + + + + + + + | Result panel 182 | + + + + + + + + + | | 2022-05-20 | [facility] | NEGATIVE | (missing) | (missing) | | (unavailable | 03:54 | [facility] | | | | + + + + + + + + + | Result panel 183 | + + + + + + + + + | | 2022-05-20 | [facility] | NEGATIVE | (missing) | (missing) | | (unavailable | 03:54 | [facility] | | | | + + + + + + + + + | Result panel 184 | + + + + + + + + + | | 2022-05-20 | [facility] | NEGATIVE | (missing) | (missing) | | (unavailable | 03:54 | [facility] | | | | + + + + + + + + + | Result panel 185 | + + + + + + + + + | | 2022-05-20 | [facility] | NEGATIVE | (missing) | (missing) | | (unavailable | 03:54 | [facility] | | | | + + + + + + + + + | Result panel 186 | + + + + + + + + + | | 2022-05-20 | [facility] | NEGATIVE | (missing) | (missing) | | (unavailable | 03:54 | [facility] | | | | + + + + + + + + + | Result panel 187 | + + + + + + + + + | | 2022-05-20 | [facility] | NEGATIVE | (missing) | (missing) | | (unavailable | 03:54 | [facility] | | | | + + + + + + + + + | Result panel 188 | + + + + + + + + + | | 2022-05-20 | [facility] | NEGATIVE | (missing) | (missing) | | (unavailable | 03:54 | [facility] | | | | + + + + + + + + + | Result panel 189 | + + + + + + + + + | | 2022-05-20 | [facility] | NEGATIVE | (missing) | (missing) | | (unavailable | 03:54 | [facility] | | | | + + + + + + + + + | Result panel 190 | + + + + + + + + + | | 2022-05-20 | [facility] | NEGATIVE | (missing) | (missing) | | (unavailable | 03:54 | [facility] | | | | + + + + + + + + + | Result panel 191 | + + + + + + + + + | | 2022-05-20 | [facility] | NEGATIVE | (missing) | (missing) | | (unavailable | 03:54 | [facility] | | | | + + + + + + + + + | Result panel 192 | + + + + + + + + + | | 2022-05-20 | [facility] | POSITIVE | (missing) | (missing) | | (unavailable | 03:54 | [facility] | | | | + + + + + + + + + | Result panel 193 | + + + + + + + + + | | 2022-05-20 | [facility] | POSITIVE | (missing) | (missing) | | (unavailable | 03:54 | [facility] | | | | + + + + + + + + + | Result panel 194 | + + + + + + + + + | | 2022-05-20 | [facility] | NEGATIVE | (missing) | (missing) | | (unavailable | 03:54 | [facility] | | | | + + + + + + + + + | Result panel 195 | + + + + + + + + + | | 2022-05-20 | [facility] | NEGATIVE | (missing) | (missing) | | (unavailable | 03:54 | [facility] | | | | + + + + + + + + + | Result panel 196 | + + + + + + + + + | | 2022-05-20 | [facility] | NEGATIVE | (missing) | (missing) | | (unavailable | 03:54 | [facility] | | | | + + + + + + + + + | Result panel 197 | + + + + + + + + + | | 2022-05-20 | [facility] | NEGATIVE | (missing) | (missing) | | (unavailable | 03:54 | [facility] | | | | + + + + + + + + + | Result panel 198 | + + + + + + + + + | | 2022-05-20 | [facility] | NEGATIVE | (missing) | (missing) | | (unavailable | 03:54 | [facility] | | | | + + + + + + + + + | Result panel 199 | + + + + + + + + + | | 2022-05-20 | [facility] | NEGATIVE | (missing) | (missing) | | (unavailable | 03:54 | [facility] | | | | + + + + + + + + + | Result panel 200 | + + + + + + + + + | | 2022-05-20 | [facility] | NEGATIVE | (missing) | (missing) | | (unavailable | 03:54 | [facility] | | | | + + + + + + + + + | Result panel 201 | + + + + + + + + + | | 2022-05-20 | [facility] | NEGATIVE | (missing) | (missing) | | (unavailable | 03:54 | [facility] | | | | + + + + + + + + + | Result panel 202 | + + + + + + + + + | | 2022-05-20 | [facility] | NEGATIVE | (missing) | (missing) | | (unavailable | 03:54 | [facility] | | | | + + + + + + + + + | Result panel 203 | + + + + + + + + + | | 2022-05-20 | [facility] | NEGATIVE | (missing) | (missing) | | (unavailable | 03:54 | [facility] | | | | + + + + + + + + + | Result panel 204 | + + + + + + + + + | | 2022-05-20 | [facility] | NEGATIVE | (missing) | (missing) | | (unavailable | 03:54 | [facility] | | | | + + + + + + + + + | Result panel 205 | + + + + + + + + + | | 2022-06-05 | [facility] | NEGATIVE | (missing) | (missing) | | (unavailable | 09:27 | [facility] | | | | + + + + + + + Social History No information. Vital Signs + + + +---------+ | date | measurement | value | units | + + + +---------+ | 2022-03-23 00:00 | BMI | 32.6 | kg/m2 | + + + +---------+ | 2022-03-23 00:00 | BP_diastolic | 68 | mmHg | + + + +---------+ | 2022-03-23 00:00 | BP_systolic | 128 | mmHg | + + + +---------+ | 2022-03-23 00:00 | heart_rate | 70 | /min | + + + +---------+ | 2022-03-23 00:00 | height_metric | 162.56 | cm | + + + +---------+ | 2022-03-23 00:00 | height_standard | 64 | in | + + + +---------+ | 2022-03-23 00:00 | o2_saturation | 98 | % | + + + +---------+ | 2022-03-23 00:00 | respiration_rate | 14 | /min | + + + +---------+ | 2022-03-23 00:00 | temperature_metric | 36.44 | C | | | | | | + + + +---------+ | 2022-03-23 00:00 | | 97.6 | F | | | temperature_standar | | | | | d | | | + + + +---------+ | 2022-03-23 00:00 | weight_metric | 86.18 | kg | + + + +---------+ | 2022-03-23 00:00 | weight_standard | 189.99 | lb | + + + +---------+ | 2022-03-23 00:00 | weight_standard | 190 | lb | + + + +---------+ | 2022-04-27 00:00 | BMI | 32.6 | kg/m2 | + + + +---------+ | 2022-04-27 00:00 | BP_diastolic | 95 | mmHg | + + + +---------+ | 2022-04-27 00:00 | BP_systolic | 122 | mmHg | + + + +---------+ | 2022-04-27 00:00 | heart_rate | 87 | /min | + + + +---------+ | 2022-04-27 00:00 | height_metric | 162.56 | cm | + + + +---------+ | 2022-04-27 00:00 | height_standard | 64 | in | + + + +---------+ | 2022-04-27 00:00 | o2_saturation | 97 | % | + + + +---------+ | 2022-04-27 00:00 | respiration_rate | 15 | /min | + + + +---------+ | 2022-04-27 00:00 | temperature_metric | 37 | C | | | | | | + + + +---------+ | 2022-04-27 00:00 | | 98.6 | F | | | temperature_standar | | | | | d | | | + + + +---------+ | 2022-04-27 00:00 | weight_metric | 86.18 | kg | + + + +---------+ | 2022-04-27 00:00 | weight_standard | 189.99 | lb | + + + +---------+ | 2022-04-27 00:00 | weight_standard | 190 | lb | + + + +---------+ | 2022-05-20 00:00 | BMI | 32.6 | kg/m2 | + + + +---------+ | 2022-05-20 00:00 | BP_diastolic | 81 | mmHg | + + + +---------+ | 2022-05-20 00:00 | BP_systolic | 111 | mmHg | + + + +---------+ | 2022-05-20 00:00 | heart_rate | 117 | /min | + + + +---------+ | 2022-05-20 00:00 | height_metric | 162.56 | cm | + + + +---------+ | 2022-05-20 00:00 | height_standard | 64 | in | + + + +---------+ | 2022-05-20 00:00 | o2_saturation | 98 | % | + + + +---------+ | 2022-05-20 00:00 | respiration_rate | 23 | /min | + + + +---------+ | 2022-05-20 00:00 | temperature_metric | 36.89 | C | | | | | | + + + +---------+ | 2022-05-20 00:00 | | 98.4 | F | | | temperature_standar | | | | | d | | | + + + +---------+ | 2022-05-20 00:00 | weight_metric | 86.18 | kg | + + + +---------+ | 2022-05-20 00:00 | weight_standard | 189.99 | lb | + + + +---------+ | 2022-05-20 00:00 | weight_standard | 190 | lb | + + + +---------+ | 2022-06-04 00:00 | BMI | 33.9 | kg/m2 | + + + +---------+ | 2022-06-04 00:00 | height_metric | 162.56 | cm | + + + +---------+ | 2022-06-04 00:00 | height_standard | 64 | in | + + + +---------+ | 2022-06-04 00:00 | weight_metric | 89.59 | kg | + + + +---------+ | 2022-06-04 00:00 | weight_standard | 197.51 | lb | + + + +---------+ | 2022-06-05 00:00 | BP_diastolic | 77 | mmHg | + + + +---------+ | 2022-06-05 00:00 | BP_systolic | 105 | mmHg | + + + +---------+ | 2022-06-05 00:00 | heart_rate | 85 | /min | + + + +---------+ | 2022-06-05 00:00 | o2_saturation | 100 | % | + + + +---------+ | 2022-06-05 00:00 | respiration_rate | 15 | /min | + + + +---------+ | 2022-06-05 00:00 | temperature_metric | 36.94 | C | | | | | | + + + +---------+ | 2022-06-05 00:00 | | 98.5 | F | | | temperature_standar | | | | | d | | | + + + +---------+"
--- OUTSIDE RECORDS SUMMARY | ~2023-02-28 | XMS | Continuity of Care Document ---
Demographics + + + | Address | [address] | | | [place] [address] | + + + | Preferred Language | Unknown | + + + | Marital Status | Never | + + + | Sabianism Affiliation | Unknown | + + + | Race | White | + + + | Ethnic Group | Not or | + + + Author + + + | Author | [facility] | + + + | Organization | [facility] | + + + | Address | [address] | | | [place] [address] | + + + | Phone | | + + + Care Team Providers + + + + | Care Ice Grinder Name | Role | Phone | + [...] 2020-05-19 00:00 | Influenza, Injectable, | [facility] | | | Quadrivalent, Preservative | | + + + + Medications + + + + | date | description | facility | + + + + | 2022-03-23 00:00 | OXYCODONE | [facility] | | | HCL/ACETAMINOPHEN | | + + + + | 2022-04-27 00:00 | OXYCODONE | [facility] | | | HCL/ACETAMINOPHEN | | + + + + | 2022-05-20 00:00 | OXYCODONE | [facility] | | | HCL/ACETAMINOPHEN | | + + + + | 2022-06-05 00:00 | OXYCODONE | [facility] | | | HCL/ACETAMINOPHEN | | + + + + | 2022-03-23 00:00 | LAMOTRIGINE | [facility] | + + + + | 2022-04-27 00:00 | LAMOTRIGINE | [facility] | + + + + | 2022-05-20 00:00 | LAMOTRIGINE | [facility] | + + + + | 2022-06-05 00:00 | LAMOTRIGINE | [facility] | + + + + | 2022-03-23 00:00 | LURASIDONE HCL | [facility] | + + + + | 2022-04-27 00:00 | LURASIDONE HCL | [facility] | + + + + | 2022-05-20 00:00 | LURASIDONE HCL | [facility] | + + + + | 2022-06-05 00:00 | LURASIDONE HCL | [facility] | + + + + | 2022-03-23 00:00 | ISOTRETINOIN | [facility] | + + + + | 2022-04-27 00:00 | ISOTRETINOIN | [facility] | + + + + | 2022-05-20 00:00 | ISOTRETINOIN | [facility] | + + + + | 2022-06-05 00:00 | ISOTRETINOIN | [facility] | + + + + | 2022-03-23 00:00 | HYDROCODONE | [facility] | | | BIT/ACETAMINOPHEN | | + + + + | 2022-04-27 00:00 | HYDROCODONE | [facility] | | | BIT/ACETAMINOPHEN | | + + + + | 2022-05-20 00:00 | HYDROCODONE | [facility] | | | BIT/ACETAMINOPHEN | | + + + + | 2022-06-05 00:00 | HYDROCODONE | [facility] | | | BIT/ACETAMINOPHEN | | + + + + | 2017-03-23 00:00 | LIDOCAINE | [facility] | + + + + | 2022-03-23 00:00 | NITROFURANTOIN | [facility] | | | MACROCRYSTAL | | + + + + | 2022-04-27 00:00 | NITROFURANTOIN | [facility] | | | MACROCRYSTAL | | + + + + | 2022-05-20 00:00 | NITROFURANTOIN | [facility] | | | MACROCRYSTAL | | + + + + | 2022-06-05 00:00 | NITROFURANTOIN | [facility] | | | MACROCRYSTAL | | + + + + | 2022-03-23 00:00 | FLUTICASONE PROPIONATE 50 | [facility] | | | MCG | | + + + + | 2022-04-27 00:00 | FLUTICASONE PROPIONATE 50 | [facility] | | | MCG | | + + + + | 2022-05-20 00:00 | FLUTICASONE PROPIONATE 50 | [facility] | | | MCG | | + + + + | 2022-06-05 00:00 | FLUTICASONE PROPIONATE 50 | [facility] | | | MCG | | + + + + | 2022-03-23 00:00 | CLONAZEPAM | [facility] | + + + + | 2022-04-27 00:00 | CLONAZEPAM | [facility] | + + + + | 2022-05-20 00:00 | CLONAZEPAM | [facility] | + + + + | 2022-06-05 00:00 | CLONAZEPAM | [facility] | + + + + | 2022-03-23 00:00 | clonAZEpam | [facility] | + + + + | 2022-04-27 00:00 | clonAZEpam | [facility] | + + + + | 2022-05-20 00:00 | clonAZEpam | [facility] | + + + + | 2022-06-05 00:00 | clonAZEpam | [facility] | + + + + | 2022-03-23 00:00 | IBUPROFEN | [facility] | + + + + | 2022-04-27 00:00 | IBUPROFEN | [facility] | + + + + | 2022-05-20 00:00 | IBUPROFEN | [facility] | + + + + | 2022-06-05 00:00 | IBUPROFEN | [facility] | + + + + | 2022-03-23 00:00 | IBUPROFEN | [facility] | + + + + | 2022-04-27 00:00 | IBUPROFEN | [facility] | + + + + | 2022-05-20 00:00 | IBUPROFEN | [facility] | + + + + | 2022-06-05 00:00 | IBUPROFEN | [facility] | + + + + | 2022-03-23 00:00 | LITHIUM CARBONATE | [facility] | + + + + | 2022-04-27 00:00 | LITHIUM CARBONATE | [facility] | + + + + | 2022-05-20 00:00 | LITHIUM CARBONATE | [facility] | + + + + | 2022-06-05 00:00 | LITHIUM CARBONATE | [facility] | + + + + | 2022-03-23 00:00 | | [facility] | | | SULFAMETHOXAZOLE/TRIMETHOPR | | | | IM | | + + + + | 2022-04-27 00:00 | | [facility] | | | SULFAMETHOXAZOLE/TRIMETHOPR | | | | IM | | + + + + | 2022-05-20 00:00 | | [facility] | | | SULFAMETHOXAZOLE/TRIMETHOPR | | | | IM | | + + + + | 2022-06-05 00:00 | | [facility] | | | SULFAMETHOXAZOLE/TRIMETHOPR | | | | IM | | + + + + | 2020-10-29 00:00 | ACETAMINOPHEN | [facility] | + + + + | 2022-03-23 00:00 | LORAZEPAM | [facility] | + + + + | 2022-04-27 00:00 | LORAZEPAM | [facility] | + + + + | 2022-05-20 00:00 | LORAZEPAM | [facility] | + + + + | 2022-06-05 00:00 | LORAZEPAM | [facility] | + + + + | 2022-03-23 00:00 | METOCLOPRAMIDE HCL | [facility] | + + + + | 2022-04-27 00:00 | METOCLOPRAMIDE HCL | [facility] | + + + + | 2022-05-20 00:00 | METOCLOPRAMIDE HCL | [facility] | + + + + | 2022-06-05 00:00 | METOCLOPRAMIDE HCL | [facility] | + + + + | 2022-03-23 00:00 | SERTRALINE HCL | [facility] | + + + + | 2022-04-27 00:00 | SERTRALINE HCL | [facility] | + + + + | 2022-05-20 00:00 | SERTRALINE HCL | [facility] | + + + + | 2022-06-05 00:00 | SERTRALINE HCL | [facility] | + + + + | 2022-03-23 00:00 | METHYLPREDNISOLONE | [facility] | + + + + | 2022-04-27 00:00 | METHYLPREDNISOLONE | [facility] | + + + + | 2022-05-20 00:00 | METHYLPREDNISOLONE | [facility] | + + + + | 2022-06-05 00:00 | METHYLPREDNISOLONE | [facility] | + + + + | 2022-03-23 00:00 | ALPRAZOLAM | [facility] | + + + + | 2022-04-27 00:00 | ALPRAZOLAM | [facility] | + + + + | 2022-05-20 00:00 | ALPRAZOLAM | [facility] | + + + + | 2022-06-05 00:00 | ALPRAZOLAM | [facility] | + + + + | 2020-10-29 00:00 | FAMOTIDINE | [facility] | + + + + | 2022-03-23 00:00 | LORATADINE | [facility] | + + + + | 2022-04-27 00:00 | LORATADINE | [facility] | + + + + | 2022-05-20 00:00 | LORATADINE | [facility] | + + + + | 2022-06-05 00:00 | LORATADINE | [facility] | + + + + | 2022-03-23 00:00 | METOCLOPRAMIDE HCL | [facility] | + + + + | 2022-04-27 00:00 | METOCLOPRAMIDE HCL | [facility] | + + + + | 2022-05-20 00:00 | METOCLOPRAMIDE HCL | [facility] | + + + + | 2022-06-05 00:00 | METOCLOPRAMIDE HCL | [facility] | + + + + | 2022-03-23 00:00 | METRONIDAZOLE | [facility] | + + + + | 2022-04-27 00:00 | METRONIDAZOLE | [facility] | + + + + | 2022-05-20 00:00 | METRONIDAZOLE | [facility] | + + + + | 2022-06-05 00:00 | METRONIDAZOLE | [facility] | + + + + | 2022-03-23 00:00 | ONDANSETRON | [facility] | + + + + | 2022-04-27 00:00 | ONDANSETRON | [facility] | + + + + | 2022-05-20 00:00 | ONDANSETRON | [facility] | + + + + | 2022-06-05 00:00 | ONDANSETRON | [facility] | + + + + | 2020-10-29 00:00 | SUCRALFATE | [facility] | + + + + | 2022-03-23 00:00 | SUCRALFATE | [facility] | + + + + | 2022-04-27 00:00 | SUCRALFATE | [facility] | + + + + | 2022-05-20 00:00 | SUCRALFATE | [facility] | + + + + | 2022-06-05 00:00 | SUCRALFATE | [facility] | + + + + | 2022-03-23 00:00 | VALACYCLOVIR HCL | [facility] | + + + + | 2022-04-27 00:00 | VALACYCLOVIR HCL | [facility] | + + + + | 2022-05-20 00:00 | VALACYCLOVIR HCL | [facility] | + + + + | 2022-06-05 00:00 | VALACYCLOVIR HCL | [facility] | + + + + | 2022-03-23 00:00 | ACETAMINOPHEN | [facility] | + + + + | 2022-04-27 00:00 | ACETAMINOPHEN | [facility] | + + + + | 2022-05-20 00:00 | ACETAMINOPHEN | [facility] | + + + + | 2022-06-05 00:00 | ACETAMINOPHEN | [facility] | + + + + | 2022-03-23 00:00 | SUCRALFATE | [facility] | + + + + | 2022-04-27 00:00 | SUCRALFATE | [facility] | + + + + | 2022-05-20 00:00 | SUCRALFATE | [facility] | + + + + | 2022-06-05 00:00 | SUCRALFATE | [facility] | + + + + | 2022-03-23 00:00 | ESCITALOPRAM OXALATE | [facility] | + + + + | 2022-04-27 00:00 | ESCITALOPRAM OXALATE | [facility] | + + + + | 2022-05-20 00:00 | ESCITALOPRAM OXALATE | [facility] | + + + + | 2022-06-05 00:00 | ESCITALOPRAM OXALATE | [facility] | + + + + | 2022-03-23 00:00 | ESCITALOPRAM OXALATE | [facility] | + + + + | 2022-04-27 00:00 | ESCITALOPRAM OXALATE | [facility] | + + + + | 2022-05-20 00:00 | ESCITALOPRAM OXALATE | [facility] | + + + + | 2022-06-05 00:00 | ESCITALOPRAM OXALATE | [facility] | + + + + | 2022-03-23 00:00 | ARIPIPRAZOLE | [facility] | + + + + | 2022-04-27 00:00 | ARIPIPRAZOLE | [facility] | + + + + | 2022-05-20 00:00 | ARIPIPRAZOLE | [facility] | + + + + | 2022-06-05 00:00 | ARIPIPRAZOLE | [facility] | + + + + | 2022-03-23 00:00 | ESCITALOPRAM OXALATE | [facility] | + + + + | 2022-04-27 00:00 | ESCITALOPRAM OXALATE | [facility] | + + + + | 2022-05-20 00:00 | ESCITALOPRAM OXALATE | [facility] | + + + + | 2022-06-05 00:00 | ESCITALOPRAM OXALATE | [facility] | + + + + | 2022-03-23 00:00 | ARIPIPRAZOLE | [facility] | + + + + | 2022-04-27 00:00 | ARIPIPRAZOLE | [facility] | + + + + | 2022-05-20 00:00 | ARIPIPRAZOLE | [facility] | + + + + | 2022-06-05 00:00 | ARIPIPRAZOLE | [facility] | + + + + | 2022-03-23 00:00 | POTASSIUM CHLORIDE | [facility] | + + + + | 2022-04-27 00:00 | POTASSIUM CHLORIDE | [facility] | + + + + | 2022-05-20 00:00 | POTASSIUM CHLORIDE | [facility] | + + + + | 2022-06-05 00:00 | POTASSIUM CHLORIDE | [facility] | + + + + | 2022-03-23 00:00 | ALBUTEROL SULFATE | [facility] | + + + + | 2022-04-27 00:00 | ALBUTEROL SULFATE | [facility] | + + + + | 2022-05-20 00:00 | ALBUTEROL SULFATE | [facility] | + + + + | 2022-06-05 00:00 | ALBUTEROL SULFATE | [facility] | + + + + | 2022-03-23 00:00 | LEVONORGESTREL | [facility] | + + + + | 2022-04-27 00:00 | LEVONORGESTREL | [facility] | + + + + | 2022-05-20 00:00 | LEVONORGESTREL | [facility] | + + + + | 2022-06-05 00:00 | LEVONORGESTREL | [facility] | + + + + | 2017-02-15 00:00 | AMOXICILLIN/POTASSIUM CLAV | [facility] | | | | | + + + + | 2022-03-23 00:00 | CYCLOBENZAPRINE HCL | [facility] | + + + + | 2022-04-27 00:00 | CYCLOBENZAPRINE HCL | [facility] | + + + + | 2022-05-20 00:00 | CYCLOBENZAPRINE HCL | [facility] | + + + + | 2022-06-05 00:00 | CYCLOBENZAPRINE HCL | [facility] | + + + + | 2022-03-23 00:00 | ADAPALENE/BENZOYL PEROXIDE | [facility] | | | | | + + + + | 2022-04-27 00:00 | ADAPALENE/BENZOYL PEROXIDE | [facility] | | | | | + + + + | 2022-05-20 00:00 | ADAPALENE/BENZOYL PEROXIDE | [facility] | | | | | + + + + | 2022-06-05 00:00 | ADAPALENE/BENZOYL PEROXIDE | [facility] | | | | | + + + + | 2017-02-15 00:00 | HYDROCODONE | [facility] | | | BIT/ACETAMINOPHEN | | + + + + | 2022-03-23 00:00 | HYDROCODONE | [facility] | | | BIT/ACETAMINOPHEN | | + + + + | 2022-04-27 00:00 | HYDROCODONE | [facility] | | | BIT/ACETAMINOPHEN | | + + + + | 2022-05-20 00:00 | HYDROCODONE | [facility] | | | BIT/ACETAMINOPHEN | | + + + + | 2022-06-05 00:00 | HYDROCODONE | [facility] | | | BIT/ACETAMINOPHEN | | + + + + | 2022-05-20 00:00 | AMPHET ASP/AMPHET/D-AMPHET | [facility] | | | | | + + + + | 2022-05-20 00:00 | AMPHET ASP/AMPHET/D-AMPHET | [facility] | | | | | + + + + | 2022-06-05 00:00 | AMPHET ASP/AMPHET/D-AMPHET | [facility] | | | | | + + + + | 2020-10-29 00:00 | HYDROmorphone HCL | [facility] | + + + + | 2015-06-30 00:00 | PROMETHAZINE HCL | [facility] | + + + + | 2022-03-23 00:00 | PROMETHAZINE HCL | [facility] | + + + + | 2022-04-27 00:00 | PROMETHAZINE HCL | [facility] | + + + + | 2022-05-20 00:00 | PROMETHAZINE HCL | [facility] | + + + + | 2022-06-05 00:00 | PROMETHAZINE HCL | [facility] | + + + + | 2022-03-23 00:00 | PROMETHAZINE HCL | [facility] | + + + + | 2022-04-27 00:00 | PROMETHAZINE HCL | [facility] | + + + + | 2022-05-20 00:00 | PROMETHAZINE HCL | [facility] | + + + + | 2022-06-05 00:00 | PROMETHAZINE HCL | [facility] | + + + + Problems + + + + | date | description | facility | + + + + | 2015-06-30 00:00 | Vomiting | [facility] | + + + + | 2015-12-14 00:00 | Postoperative infection | [facility] | + + + + | 2015-12-30 00:00 | Abdominal pain | [facility] | + + + + | 2017-02-15 00:00 | Cyst of Bartholin's gland | [facility] | | | duct | | + + + + | 2017-03-23 00:00 | Vaginal pain | [facility] | + + + + | 2017-04-09 00:00 | Depression with suicidal | [facility] | | | ideation | | + + + + | 2017-05-25 00:00 | | [facility] | + + + + | 2020-07-08 00:00 | Hypokalemia | [facility] | + + + + | 2020-07-08 00:00 | Paresthesia | [facility] | + + + + | 2021-07-17 00:00 | Abdominal hernia | [facility] | + + + + | 2022-03-23 00:00 | Adverse effect of lithium | [facility] | + + + + | 2022-04-27 00:00 | Marlin toxicity | [facility] | + + + + Procedures No [...] (missing) | | (unavailable | 16:50 | [facility] | | | | | ) | [...] (missing) | | (unavailable | 16:50 | [facility] | | | | | ) | [...] (missing) | | (unavailable | 03:54 | [facility] | | | | | ) | [...]
--- OUTSIDE RECORDS SUMMARY | 2023-02-28 21:42 | XMS ---
PreManage Notification: RADHA ULRICH Security Police Aide Events No recent Security Events currently on file CRITERIA MET - [facility]AYP CARE PROVIDERS -[place]- Dentist: Casting Agent [facility] PHONE: [phone] ROMEL HOOK Physician Employee Relations Assistant 07/11/2020-Current PHONE: Unknown Skyla Chappell-C Nurse Practitioner: [facility] PHONE: [phone] Tenisha has no Care Guidelines for this patient. E.D. VISIT COUNT (12 MO.) 4 TIM Garcia TOTAL 4 NOTE: Visits indicate total known visits. ED/UCC VISIT TRACKING (12 MO.) 02/28/2023 21:38 [facility] TYPE: Emergency COMPLAINT: - ABD PAIN 05/20/2022 03:33 [facility] TYPE: Emergency COMPLAINT: - ANXIETY DIAGNOSES: - Allergy status to other antibiotic agents - Allergy status to sulfonamides - Anxiety disorder, unspecified - Cannabis use, unspecified with anxiety disorder - Other intermediate (current) drug therapy - Unspecified asthma, uncomplicated 04/27/2022 16:39 [facility] TYPE: Emergency COMPLAINT: - VOMITING DIAGNOSES: - Allergy status to other antibiotic agents - Allergy status to sulfonamides - Diarrhea, unspecified - Nausea with vomiting, unspecified - Other senior portfolio analyst (current) drug therapy - Toxic effect of other metals, accidental (unintentional), initial encounter - Unspecified asthma, uncomplicated 03/23/2022 12:52 [facility] TYPE: Emergency COMPLAINT: - POSS LITHIUM POISONING DIAGNOSES: - Adverse effect of other antipsychotics and neuroleptics, initial encounter - Allergy status to other drugs, medicaments and biological substances - Allergy status to sulfonamides - Diarrhea, unspecified - Toxic effect of other metals, accidental (unintentional), initial encounter - Unspecified asthma, uncomplicated - Vomiting, unspecified INPATIENT VISIT TRACKING (12 MO.) No inpatient visits to display in this time frame [email or web address]
[2023-02-28] MEDS ORDERED: CLONIDINE HCL0.1 MG PO (21:49)
[2023-02-28] MEDS ORDERED: ARIPIPRAZOLE20 MG PO (21:49)
[2023-02-28] MEDS ORDERED: SPIRONOLACTONE50 MG PO (21:49)
[2023-02-28 22:02] LABS: BASOPHILS 0.3 % (0-2); EOSINOPHILS 0.9 % (0-6); HEMATOCRIT 47.3 % (35.0-50.0); HEMOGLOBIN 15.4 g/dL (12.0-18.0); LYMPHOCYTES 30.1 % (24-44); MCH 28.8 (27-36); MCHC 32.6 g/dl (30-36); MCV 88.1 fl (81-99); MONOCYTES 8.9 % (0-12); NEUTROPHILS 59.8 % (39-80); PLATELET COUNT 366 K/uL (140-440); RBC 5.37 M/ul (4.3-5.7)
[2023-02-28 22:03] LABS: BILIRUBIN, URINE NEGATIVE (negative); BLOOD/HGB, URINE NEGATIVE (Negative); KETONE, URINE TRACE (Negative); LEUK ESTERASE, URINE NEGATIVE (negative); NITRITE, URINE POSITIVE (negative); PH, URINE 5.5 (5-7)
[2023-02-28 22:12] LABS: BACTERIA, URINE 1+ /hpf (negative); CASTS, URINE NONE SEEN \\lpf; COLLECTION TYPE, URINE CLEAN CATCH; CRYSTALS, URINE NONE SEEN (0-1+); EPITHELIAL CELLS, URINE SQUAMOUS 2+ /lpf (0-1+); RED BLOOD CELLS, URINE 0-1 /hpf (0-5); REFLEX CULTURE, URINE No (No)
[2023-02-28 22:15] LABS: ALBUMIN 3.7 g/dL (3.4-5.0); ALBUMIN/GLOBULIN RATIO 0.84 (1.1-2.4); ANION GAP 12.5 (7-21); BILIRUBIN, TOTAL 0.3 ng/dL (0.2-1.0); BUN/CREATININE RATIO 8.33 (6.0-28.6); CREATININE, SERUM 0.84 mg/dL (0.55-1.02); POTASSIUM 3.5 mmol/L (3.5-5.1); PROTEIN, TOTAL 8.1 g/dL (6.4-8.2)
[2023-03-01 00:20] VITALS: BP 109/79
== END 2023-03-01 00:20 | disposition home or self-care (01) ==
LOC: ED 21:38
PROVIDERS: Internal Medicine
DX: N83.201 Unspecified ovarian cyst, right side (principal); J45.909 Unspecified asthma, uncomplicated; Z88.5 Allergy status to narcotic agent; Z88.2 Allergy status to sulfonamides; Z88.1 Allergy status to other antibiotic agents; Z79.899 Other long term (current) drug therapy
CPT/HCPCS: 36415; 74177; 80053; 81001; 84703; 85025; 99284-25; J1885; J7121; Q9967

== ENCOUNTER 2023-03-21 18:46 | Emergency (ER) | payer OTHER ==
[~2023-03-21] VITALS: Ht 162.6 cm; Wt 91.9 kg
--- OUTSIDE RECORDS SUMMARY | ~2023-03-21 | XMS | Continuity of Care Document ---
Demographics + + + | Address | [address] | | | [place] [address] | + + + | Preferred Language | Unknown | + + + | Marital Status | Never | + + + | Yazidism Affiliation | Unknown | + + + | Race | White | + + + | Ethnic Group | Not or | + + + Author + + + | Author | [facility] | + + + | Organization | [facility] | + + + | Address | [address] | | | [place] [address] | + + + | Phone | | + + + Care Team Providers + + + + | Care Bleach Chlorinator Name | Role | Phone | + [...] + + + | (no date) | hydrocodone | [facility] | (no reaction) | (no severity) | + + + + + + | (no date) | | [facility] | (no reaction) | (no severity) | | | sulfamethoxazol | | | | | | e | | | | + + + + + + | (no date) | trimethoprim | [facility] | (no reaction) | (no severity) | + + + + + + [...] | 2020-05-19 00:00 | Influenza, Injectable, | [facility] | | | Quadrivalent, Preservative | | + + + + Medications + + + + | date | description | facility | + + + + | 2022-03-23 00:00 | OXYCODONE | [facility] | | | HCL/ACETAMINOPHEN | | + + + + | 2022-04-27 00:00 | OXYCODONE | [facility] | | | HCL/ACETAMINOPHEN | | + + + + | 2022-05-20 00:00 | OXYCODONE | [facility] | | | HCL/ACETAMINOPHEN | | + + + + | 2022-06-05 00:00 | OXYCODONE | [facility] | | | HCL/ACETAMINOPHEN | | + + + + | 2023-03-01 00:00 | OXYCODONE | [facility] | | | HCL/ACETAMINOPHEN | | + + + + | 2022-03-23 00:00 | LAMOTRIGINE | [facility] | + + + + | 2022-04-27 00:00 | LAMOTRIGINE | [facility] | + + + + | 2022-05-20 00:00 | LAMOTRIGINE | [facility] | + + + + | 2022-06-05 00:00 | LAMOTRIGINE | [facility] | + + + + | 2023-03-01 00:00 | LAMOTRIGINE | [facility] | + + + + | 2022-03-23 00:00 | LURASIDONE HCL | [facility] | + + + + | 2022-04-27 00:00 | LURASIDONE HCL | [facility] | + + + + | 2022-05-20 00:00 | LURASIDONE HCL | [facility] | + + + + | 2022-06-05 00:00 | LURASIDONE HCL | [facility] | + + + + | 2023-03-01 00:00 | LURASIDONE HCL | [facility] | + + + + | 2022-03-23 00:00 | ISOTRETINOIN | [facility] | + + + + | 2022-04-27 00:00 | ISOTRETINOIN | [facility] | + + + + | 2022-05-20 00:00 | ISOTRETINOIN | [facility] | + + + + | 2022-06-05 00:00 | ISOTRETINOIN | [facility] | + + + + | 2023-03-01 00:00 | ISOTRETINOIN | [facility] | + + + + | 2022-03-23 00:00 | HYDROCODONE | [facility] | | | BIT/ACETAMINOPHEN | | + + + + | 2022-04-27 00:00 | HYDROCODONE | [facility] | | | BIT/ACETAMINOPHEN | | + + + + | 2022-05-20 00:00 | HYDROCODONE | [facility] | | | BIT/ACETAMINOPHEN | | + + + + | 2022-06-05 00:00 | HYDROCODONE | [facility] | | | BIT/ACETAMINOPHEN | | + + + + | 2023-03-01 00:00 | HYDROCODONE | [facility] | | | BIT/ACETAMINOPHEN | | + + + + | 2017-03-23 00:00 | LIDOCAINE | [facility] | + + + + | 2022-03-23 00:00 | NITROFURANTOIN | [facility] | | | MACROCRYSTAL | | + + + + | 2022-04-27 00:00 | NITROFURANTOIN | [facility] | | | MACROCRYSTAL | | + + + + | 2022-05-20 00:00 | NITROFURANTOIN | [facility] | | | MACROCRYSTAL | | + + + + | 2022-06-05 00:00 | NITROFURANTOIN | [facility] | | | MACROCRYSTAL | | + + + + | 2023-03-01 00:00 | NITROFURANTOIN | [facility] | | | MACROCRYSTAL | | + + + + | 2022-03-23 00:00 | FLUTICASONE PROPIONATE 50 | [facility] | | | MCG | | + + + + | 2022-04-27 00:00 | FLUTICASONE PROPIONATE 50 | [facility] | | | MCG | | + + + + | 2022-05-20 00:00 | FLUTICASONE PROPIONATE 50 | [facility] | | | MCG | | + + + + | 2022-06-05 00:00 | FLUTICASONE PROPIONATE 50 | [facility] | | | MCG | | + + + + | 2023-03-01 00:00 | FLUTICASONE PROPIONATE 50 | [facility] | | | MCG | | + + + + | 2022-03-23 00:00 | CLONAZEPAM | [facility] | + + + + | 2022-04-27 00:00 | CLONAZEPAM | [facility] | + + + + | 2022-05-20 00:00 | CLONAZEPAM | [facility] | + + + + | 2022-06-05 00:00 | CLONAZEPAM | [facility] | + + + + | 2023-03-01 00:00 | CLONAZEPAM | [facility] | + + + + | 2022-03-23 00:00 | clonAZEpam | [facility] | + + + + | 2022-04-27 00:00 | clonAZEpam | [facility] | + + + + | 2022-05-20 00:00 | clonAZEpam | [facility] | + + + + | 2022-06-05 00:00 | clonAZEpam | [facility] | + + + + | 2023-03-01 00:00 | clonAZEpam | [facility] | + + + + | 2022-03-23 00:00 | IBUPROFEN | [facility] | + + + + | 2022-04-27 00:00 | IBUPROFEN | [facility] | + + + + | 2022-05-20 00:00 | IBUPROFEN | [facility] | + + + + | 2022-06-05 00:00 | IBUPROFEN | [facility] | + + + + | 2023-03-01 00:00 | IBUPROFEN | [facility] | + + + + | 2022-03-23 00:00 | IBUPROFEN | [facility] | + + + + | 2022-04-27 00:00 | IBUPROFEN | [facility] | + + + + | 2022-05-20 00:00 | IBUPROFEN | [facility] | + + + + | 2022-06-05 00:00 | IBUPROFEN | [facility] | + + + + | 2023-03-01 00:00 | IBUPROFEN | [facility] | + + + + | 2022-03-23 00:00 | LITHIUM CARBONATE | [facility] | + + + + | 2022-04-27 00:00 | LITHIUM CARBONATE | [facility] | + + + + | 2022-05-20 00:00 | LITHIUM CARBONATE | [facility] | + + + + | 2022-06-05 00:00 | LITHIUM CARBONATE | [facility] | + + + + | 2023-03-01 00:00 | LITHIUM CARBONATE | [facility] | + + + + | 2023-03-01 00:00 | SPIRONOLACTONE | [facility] | + + + + | 2022-03-23 00:00 | | [facility] | | | SULFAMETHOXAZOLE/TRIMETHOPR | | | | IM | | + + + + | 2022-04-27 00:00 | | [facility] | | | SULFAMETHOXAZOLE/TRIMETHOPR | | | | IM | | + + + + | 2022-05-20 00:00 | | [facility] | | | SULFAMETHOXAZOLE/TRIMETHOPR | | | | IM | | + + + + | 2022-06-05 00:00 | | [facility] | | | SULFAMETHOXAZOLE/TRIMETHOPR | | | | IM | | + + + + | 2023-03-01 00:00 | | [facility] | | | SULFAMETHOXAZOLE/TRIMETHOPR | | | | IM | | + + + + | 2020-10-29 00:00 | ACETAMINOPHEN | [facility] | + + + + | 2022-03-23 00:00 | LORAZEPAM | [facility] | + + + + | 2022-04-27 00:00 | LORAZEPAM | [facility] | + + + + | 2022-05-20 00:00 | LORAZEPAM | [facility] | + + + + | 2022-06-05 00:00 | LORAZEPAM | [facility] | + + + + | 2023-03-01 00:00 | LORAZEPAM | [facility] | + + + + | 2022-03-23 00:00 | METOCLOPRAMIDE HCL | [facility] | + + + + | 2022-04-27 00:00 | METOCLOPRAMIDE HCL | [facility] | + + + + | 2022-05-20 00:00 | METOCLOPRAMIDE HCL | [facility] | + + + + | 2022-06-05 00:00 | METOCLOPRAMIDE HCL | [facility] | + + + + | 2023-03-01 00:00 | METOCLOPRAMIDE HCL | [facility] | + + + + | 2022-03-23 00:00 | SERTRALINE HCL | [facility] | + + + + | 2022-04-27 00:00 | SERTRALINE HCL | [facility] | + + + + | 2022-05-20 00:00 | SERTRALINE HCL | [facility] | + + + + | 2022-06-05 00:00 | SERTRALINE HCL | [facility] | + + + + | 2023-03-01 00:00 | SERTRALINE HCL | [facility] | + + + + | 2022-03-23 00:00 | METHYLPREDNISOLONE | [facility] | + + + + | 2022-04-27 00:00 | METHYLPREDNISOLONE | [facility] | + + + + | 2022-05-20 00:00 | METHYLPREDNISOLONE | [facility] | + + + + | 2022-06-05 00:00 | METHYLPREDNISOLONE | [facility] | + + + + | 2023-03-01 00:00 | METHYLPREDNISOLONE | [facility] | + + + + | 2022-03-23 00:00 | ALPRAZOLAM | [facility] | + + + + | 2022-04-27 00:00 | ALPRAZOLAM | [facility] | + + + + | 2022-05-20 00:00 | ALPRAZOLAM | [facility] | + + + + | 2022-06-05 00:00 | ALPRAZOLAM | [facility] | + + + + | 2023-03-01 00:00 | ALPRAZOLAM | [facility] | + + + + | 2020-10-29 00:00 | FAMOTIDINE | [facility] | + + + + | 2022-03-23 00:00 | LORATADINE | [facility] | + + + + | 2022-04-27 00:00 | LORATADINE | [facility] | + + + + | 2022-05-20 00:00 | LORATADINE | [facility] | + + + + | 2022-06-05 00:00 | LORATADINE | [facility] | + + + + | 2023-03-01 00:00 | LORATADINE | [facility] | + + + + | 2022-03-23 00:00 | METOCLOPRAMIDE HCL | [facility] | + + + + | 2022-04-27 00:00 | METOCLOPRAMIDE HCL | [facility] | + + + + | 2022-05-20 00:00 | METOCLOPRAMIDE HCL | [facility] | + + + + | 2022-06-05 00:00 | METOCLOPRAMIDE HCL | [facility] | + + + + | 2023-03-01 00:00 | METOCLOPRAMIDE HCL | [facility] | + + + + | 2022-03-23 00:00 | METRONIDAZOLE | [facility] | + + + + | 2022-04-27 00:00 | METRONIDAZOLE | [facility] | + + + + | 2022-05-20 00:00 | METRONIDAZOLE | [facility] | + + + + | 2022-06-05 00:00 | METRONIDAZOLE | [facility] | + + + + | 2023-03-01 00:00 | METRONIDAZOLE | [facility] | + + + + | 2022-03-23 00:00 | ONDANSETRON | [facility] | + + + + | 2022-04-27 00:00 | ONDANSETRON | [facility] | + + + + | 2022-05-20 00:00 | ONDANSETRON | [facility] | + + + + | 2022-06-05 00:00 | ONDANSETRON | [facility] | + + + + | 2023-03-01 00:00 | ONDANSETRON | [facility] | + + + + | 2020-10-29 00:00 | SUCRALFATE | [facility] | + + + + | 2022-03-23 00:00 | SUCRALFATE | [facility] | + + + + | 2022-04-27 00:00 | SUCRALFATE | [facility] | + + + + | 2022-05-20 00:00 | SUCRALFATE | [facility] | + + + + | 2022-06-05 00:00 | SUCRALFATE | [facility] | + + + + | 2023-03-01 00:00 | SUCRALFATE | [facility] | + + + + | 2022-03-23 00:00 | VALACYCLOVIR HCL | [facility] | + + + + | 2022-04-27 00:00 | VALACYCLOVIR HCL | [facility] | + + + + | 2022-05-20 00:00 | VALACYCLOVIR HCL | [facility] | + + + + | 2022-06-05 00:00 | VALACYCLOVIR HCL | [facility] | + + + + | 2023-03-01 00:00 | VALACYCLOVIR HCL | [facility] | + + + + | 2022-03-23 00:00 | ACETAMINOPHEN | [facility] | + + + + | 2022-04-27 00:00 | ACETAMINOPHEN | [facility] | + + + + | 2022-05-20 00:00 | ACETAMINOPHEN | [facility] | + + + + | 2022-06-05 00:00 | ACETAMINOPHEN | [facility] | + + + + | 2023-03-01 00:00 | ACETAMINOPHEN | [facility] | + + + + | 2022-03-23 00:00 | SUCRALFATE | [facility] | + + + + | 2022-04-27 00:00 | SUCRALFATE | [facility] | + + + + | 2022-05-20 00:00 | SUCRALFATE | [facility] | + + + + | 2022-06-05 00:00 | SUCRALFATE | [facility] | + + + + | 2023-03-01 00:00 | SUCRALFATE | [facility] | + + + + | 2022-03-23 00:00 | ESCITALOPRAM OXALATE | [facility] | + + + + | 2022-04-27 00:00 | ESCITALOPRAM OXALATE | [facility] | + + + + | 2022-05-20 00:00 | ESCITALOPRAM OXALATE | [facility] | + + + + | 2022-06-05 00:00 | ESCITALOPRAM OXALATE | [facility] | + + + + | 2023-03-01 00:00 | ESCITALOPRAM OXALATE | [facility] | + + + + | 2023-03-01 00:00 | ARIPIPRAZOLE | [facility] | + + + + | 2022-03-23 00:00 | ESCITALOPRAM OXALATE | [facility] | + + + + | 2022-04-27 00:00 | ESCITALOPRAM OXALATE | [facility] | + + + + | 2022-05-20 00:00 | ESCITALOPRAM OXALATE | [facility] | + + + + | 2022-06-05 00:00 | ESCITALOPRAM OXALATE | [facility] | + + + + | 2023-03-01 00:00 | ESCITALOPRAM OXALATE | [facility] | + + + + | 2022-03-23 00:00 | ARIPIPRAZOLE | [facility] | + + + + | 2022-04-27 00:00 | ARIPIPRAZOLE | [facility] | + + + + | 2022-05-20 00:00 | ARIPIPRAZOLE | [facility] | + + + + | 2022-06-05 00:00 | ARIPIPRAZOLE | [facility] | + + + + | 2023-03-01 00:00 | ARIPIPRAZOLE | [facility] | + + + + | 2022-03-23 00:00 | ESCITALOPRAM OXALATE | [facility] | + + + + | 2022-04-27 00:00 | ESCITALOPRAM OXALATE | [facility] | + + + + | 2022-05-20 00:00 | ESCITALOPRAM OXALATE | [facility] | + + + + | 2022-06-05 00:00 | ESCITALOPRAM OXALATE | [facility] | + + + + | 2023-03-01 00:00 | ESCITALOPRAM OXALATE | [facility] | + + + + | 2022-03-23 00:00 | ARIPIPRAZOLE | [facility] | + + + + | 2022-04-27 00:00 | ARIPIPRAZOLE | [facility] | + + + + | 2022-05-20 00:00 | ARIPIPRAZOLE | [facility] | + + + + | 2022-06-05 00:00 | ARIPIPRAZOLE | [facility] | + + + + | 2023-03-01 00:00 | ARIPIPRAZOLE | [facility] | + + + + | 2022-03-23 00:00 | POTASSIUM CHLORIDE | [facility] | + + + + | 2022-04-27 00:00 | POTASSIUM CHLORIDE | [facility] | + + + + | 2022-05-20 00:00 | POTASSIUM CHLORIDE | [facility] | + + + + | 2022-06-05 00:00 | POTASSIUM CHLORIDE | [facility] | + + + + | 2023-03-01 00:00 | POTASSIUM CHLORIDE | [facility] | + + + + | 2022-03-23 00:00 | ALBUTEROL SULFATE | [facility] | + + + + | 2022-04-27 00:00 | ALBUTEROL SULFATE | [facility] | + + + + | 2022-05-20 00:00 | ALBUTEROL SULFATE | [facility] | + + + + | 2022-06-05 00:00 | ALBUTEROL SULFATE | [facility] | + + + + | 2023-03-01 00:00 | ALBUTEROL SULFATE | [facility] | + + + + | 2022-03-23 00:00 | LEVONORGESTREL | [facility] | + + + + | 2022-04-27 00:00 | LEVONORGESTREL | [facility] | + + + + | 2022-05-20 00:00 | LEVONORGESTREL | [facility] | + + + + | 2022-06-05 00:00 | LEVONORGESTREL | [facility] | + + + + | 2023-03-01 00:00 | LEVONORGESTREL | [facility] | + + + + | 2017-02-15 00:00 | AMOXICILLIN/POTASSIUM CLAV | [facility] | | | | | + + + + | 2022-03-23 00:00 | CYCLOBENZAPRINE HCL | [facility] | + + + + | 2022-04-27 00:00 | CYCLOBENZAPRINE HCL | [facility] | + + + + | 2022-05-20 00:00 | CYCLOBENZAPRINE HCL | [facility] | + + + + | 2022-06-05 00:00 | CYCLOBENZAPRINE HCL | [facility] | + + + + | 2023-03-01 00:00 | CYCLOBENZAPRINE HCL | [facility] | + + + + | 2022-03-23 00:00 | ADAPALENE/BENZOYL PEROXIDE | [facility] | | | | | + + + + | 2022-04-27 00:00 | ADAPALENE/BENZOYL PEROXIDE | [facility] | | | | | + + + + | 2022-05-20 00:00 | ADAPALENE/BENZOYL PEROXIDE | [facility] | | | | | + + + + | 2022-06-05 00:00 | ADAPALENE/BENZOYL PEROXIDE | [facility] | | | | | + + + + | 2023-03-01 00:00 | ADAPALENE/BENZOYL PEROXIDE | [facility] | | | | | + + + + | 2017-02-15 00:00 | HYDROCODONE | [facility] | | | BIT/ACETAMINOPHEN | | + + + + | 2022-03-23 00:00 | HYDROCODONE | [facility] | | | BIT/ACETAMINOPHEN | | + + + + | 2022-04-27 00:00 | HYDROCODONE | [facility] | | | BIT/ACETAMINOPHEN | | + + + + | 2022-05-20 00:00 | HYDROCODONE | [facility] | | | BIT/ACETAMINOPHEN | | + + + + | 2022-06-05 00:00 | HYDROCODONE | [facility] | | | BIT/ACETAMINOPHEN | | + + + + | 2023-03-01 00:00 | HYDROCODONE | [facility] | | | BIT/ACETAMINOPHEN | | + + + + | 2022-05-20 00:00 | AMPHET ASP/AMPHET/D-AMPHET | [facility] | | | | | + + + + | 2022-05-20 00:00 | AMPHET ASP/AMPHET/D-AMPHET | [facility] | | | | | + + + + | 2022-06-05 00:00 | AMPHET ASP/AMPHET/D-AMPHET | [facility] | | | | | + + + + | 2023-03-01 00:00 | AMPHET ASP/AMPHET/D-AMPHET | [facility] | | | | | + + + + | 2023-03-01 00:00 | CLONIDINE HCL | [facility] | + + + + | 2020-10-29 00:00 | HYDROmorphone HCL | [facility] | + + + + | 2015-06-30 00:00 | PROMETHAZINE HCL | [facility] | + + + + | 2022-03-23 00:00 | PROMETHAZINE HCL | [facility] | + + + + | 2022-04-27 00:00 | PROMETHAZINE HCL | [facility] | + + + + | 2022-05-20 00:00 | PROMETHAZINE HCL | [facility] | + + + + | 2022-06-05 00:00 | PROMETHAZINE HCL | [facility] | + + + + | 2023-03-01 00:00 | PROMETHAZINE HCL | [facility] | + + + + | 2022-03-23 00:00 | PROMETHAZINE HCL | [facility] | + + + + | 2022-04-27 00:00 | PROMETHAZINE HCL | [facility] | + + + + | 2022-05-20 00:00 | PROMETHAZINE HCL | [facility] | + + + + | 2022-06-05 00:00 | PROMETHAZINE HCL | [facility] | + + + + | 2023-03-01 00:00 | PROMETHAZINE HCL | [facility] | + + + + Problems + + + + | date | description | facility | + + + + | 2015-06-30 00:00 | Vomiting | [facility] | + + + + | 2015-12-14 00:00 | Postoperative infection | [facility] | + + + + | 2015-12-14 02:12 | Radiation Therapy @ | [facility] | | | Lymphatic and Hematologic | | | | System @ [facility] | | | | Radiosurgery @ [facility] | | + + + + | 2015-12-14 02:12 | DECREASED WHITE BLOOD CELL | [facility] | | | COUNT, UNSPECIFIED | | + + + + | 2015-12-14 02:12 | MAJOR DEPRESSIVE DISORDER, | [facility] | | | SINGLE EPISODE, UNSPECI | | + + + + | 2015-12-14 02:12 | ANXIETY DISORDER, | [facility] | | | UNSPECIFIED | | + + + + | 2015-12-14 02:12 | UNSPECIFIED ASTHMA, | [facility] | | | UNCOMPLICATED | | + + + + | 2015-12-14 02:12 | FEVER, UNSPECIFIED | [facility] | + + + + | 2015-12-14 02:12 | INFECTION FOLLOWING A | [facility] | | | PROCEDURE, INITIAL | | | | ENCOUNTER | | + + + + | 2015-12-14 02:12 | 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) | [facility] | | | DRUG THERAPY | | + + + + | 2015-12-30 00:00 | Abdominal pain | [facility] | + + + + | 2017-02-15 00:00 | Cyst of Bartholin's gland | [facility] | | | duct | | + + + + | 2017-03-23 00:00 | Vaginal pain | [facility] | + + + + | 2017-04-09 00:00 | Depression with suicidal | [facility] | | | ideation | | + + + + | 2017-05-25 00:00 | | [facility] | + + + + | 2020-07-08 00:00 | Hypokalemia | [facility] | + + + + | 2020-07-08 00:00 | Paresthesia | [facility] | + + + + | 2021-07-17 00:00 | Abdominal hernia | [facility] | + + + + | 2022-03-23 00:00 | Adverse effect of lithium | [facility] | + + + + | 2022-04-27 00:00 | [place] toxicity | [facility] | + + + + | 2023-02-28 21:38 | UNSPECIFIED ASTHMA, | [facility] | | | UNCOMPLICATED | | + + + + | 2023-02-28 21:38 | UNSPECIFIED OVARIAN CYST, | [facility] | | | RIGHT SIDE | | + + + + | 2023-02-28 21:38 | UNSPECIFIED ABDOMINAL PAIN | [facility] | | | | | + + + + | 2023-02-28 21:38 | OTHER [facility] (CURRENT) | [facility] | | | DRUG THERAPY | | + + + + | 2023-02-28 21:38 | ALLERGY STATUS TO OTHER | [facility] | | | ANTIBIOTIC AGENTS STATUS | | + + + + | 2023-02-28 21:38 | ALLERGY STATUS TO | [facility] | | | SULFONAMIDES STATUS | | + + + + | 2023-02-28 21:38 | ALLERGY STATUS TO NARCOTIC | [facility] | | | AGENT STATUS | | + + + + | 2023-03-01 00:00 | Cyst of ovary | [facility] | + + + + Procedures No information. Results/Labs +--------+--------+ +---------+--------+---------+ | test | date | facility | value | unit | notes | +--------+--------+ +---------+--------+---------+ + + | Result panel 1 | + + + + + +-------+ [...] 12 | + + + + + +-------+ [...] 14 | + + + + + +-------+ + + | | 2022-03-23 | [facility] | 0.7 | (missing) | (missing) | | [facility]unavailable | 13:05 [facility] | | | | + + + +-------+ + + + + | Result panel 15 | + + + + + +-------+---------+ + | | 2022-03-23 | [facility] | 117 | mg/dL | (missing) | | (unavailable | 13:05 [facility] | | | | + + + +-------+---------+ + + + | Result panel 16 | + + + + + +------+---------+ + | | 2022-03-23 | [facility] | 13 | mg/dL | (missing) | | (unavailable | 13:05 | [facility] | | | | + + + +------+---------+ + + + | Result panel 17 | + + + + + +--------+---------+ + | | 2022-03-23 | [facility] | 1.01 | mg/dL | (missing) | | (unavailable | 13:05 | [facility] | | | | + + + +--------+---------+ + + + | Result panel 18 | + + + + + +------+ + + | | 2022-03-23 | [facility] | 79 | (missing) | (missing) | | (unavailable | 13:05 | [facility] | | | + + + +------+ + + + + | Result panel 19 | + + + + + +---------+ + + | | 2022-03-23 | [facility] | 12.87 | (missing) | (missing) | | (unavailable | 13:05 | [facility] | | | + + + +---------+ + + + + | Result panel 20 | + + + + + +-------+ + + | | 2022-03-23 | [facility] | 138 | (missing) | (missing) | | (unavailable | 13:05 [facility] | | | + + + +-------+ + + + + | Result panel 21 | + + + + + +-------+ [...] 23 | + + + + + +------+ + + | | 2022-03-23 | [facility] | 26 | (missing) | (missing) | | (unavailable | 13:05 [facility] | | | + + + +------+ + + + + | Result panel 24 | + + + + + +--------+ + + | | 2022-03-23 | [facility] | 11.4 | (missing) | (missing) | | (unavailable | 13:05 [facility] | | | + + + +--------+ + + + + | Result panel 25 | + + + + + +-------+---------+ + | | 2022-03-23 | [facility] | 9.0 | mg/dL | (missing) | | (unavailable | 13:05 | [facility] | | | + + + +-------+---------+ + + + | Result panel 26 [...] 27 | + + + + + +-------+ [...] (missing) | | (unavailable | 13:05 | [facility] | | | | + + + +-------+ + + + + | Result panel 29 | + + + + + +--------+ [...] 31 | + + + + + +------+ + + | | 2022-03-23 | [facility] | 20 | (missing) | (missing) | | (unavailable | 13:05 [facility] | | | + + + +------+ + + + + | Result panel 32 | + + + + + +------+ + + | | 2022-03-23 | [facility] | 29 | (missing) | (missing) | | (unavailable | 13:05 | [facility] | | | + + + +------+ + + + + | Result panel 33 | + + + + + +------+ + + | | 2022-03-23 | [facility] | 83 | (missing) | (missing) | | (unavailable | 13:05 [facility] | | | + + + +------+ + + + + | Result panel 34 | + + + + + + + + + | | 2022-03-23 | [facility] | NEGATIVE | (missing) | (missing) | | (unavailable | 13:05 | [facility] | | | + + + + + + + + + | Result panel 35 | + + + + + +-------+ + + | | 2022-03-23 | [facility] | 1.4 | (missing) | (missing) | | (unavailable | 13:05 | [facility] | | | + + + +-------+ + + + + | Result panel 36 | + + + + + + + + + | | 2022-04-27 | [facility] | YELLOW | (missing) | (missing) | | (unavailable | 16:50 | [facility] | | | | + + + + + + + + + | Result panel 37 | + + + + + +---------+ + + | | 2022-04-27 | [facility] | CLEAR | (missing) | (missing) | | (unavailable | 16:50 | [facility] | | | | + + + +---------+ + + + + | Result panel 38 | + + + + + + + + + | | 2022-04-27 | [facility] | NEGATIVE | (missing) | (missing) | | (unavailable | 16:50 | [facility] | | | | + + + + + + + + + | Result panel 39 | + + + + + + + + + | | 2022-04-27 | [facility] | NEGATIVE | (missing) | (missing) | | (unavailable | 16:50 | [facility] | | | | + + + + + + + + + | Result panel 40 | + + + + + + + + + | | 2022-04-27 | [facility] | NEGATIVE | (missing) | (missing) | | (unavailable | 16:50 | [facility] | | | | + + + + + + + + + | Result panel 41 | + + + + + +---------+ + + | | 2022-04-27 | [facility] | 1.010 | (missing) | (missing) | | (unavailable | 16:50 | [facility] | | | | + + + +---------+ + + + + | Result panel 42 | + + + + + + + + + | | 2022-04-27 | [facility] | NEGATIVE | (missing) | (missing) | | (unavailable | 16:50 | [facility] | | | + + + + + + + + + | Result panel 43 | + + + + + +-------+ + + | | 2022-04-27 | [facility] | 7.0 | (missing) | (missing) | | (unavailable | 16:50 | [facility] | | | + + + +-------+ + + + + | Result panel 44 | + + + + + + + + + | | 2022-04-27 | [facility] | NEGATIVE | (missing) | (missing) | | (unavailable | 16:50 | [facility] | | | | + + + + + + + + + | Result panel 45 | + + + + + + + + + | | 2022-04-27 | [facility] | NORMAL | (missing) | (missing) | | (unavailable | 16:50 | [facility] | | | | + + + + + + + + + | Result panel 46 | + + + + + + + + + | | 2022-04-27 | [facility] | NEGATIVE | (missing) | (missing) | | (unavailable | 16:50 | [facility] | | | + + + + + + + + + | Result panel 47 | + + + + + + + + + | | 2022-04-27 | [facility] | NEGATIVE | (missing) | (missing) | | (unavailable | 16:50 | [facility] | | | + + + + + + + + + | Result panel 48 | + + + + + + + + + | | 2022-04-27 | [facility] | CLEAN CATCH | (missing) | (missing) | | (unavailable | 16:50 | [facility] | | | | + + + + + + + + + | Result panel 49 | + + + + + +------+ + + | | 2022-04-27 | [facility] | 61 | (missing) | (missing) | | (unavailable | 16:50 | [facility] | | | + + + +------+ + + + + | Result panel 50 | + + + + + +-----+ + + | | 2022-04-27 | [facility] | 0 | (missing) | (missing) | | (unavailable | 16:50 | [facility] | | | + + + +-----+ + + + + | Result panel 51 | + + + + + +------+ + + | | 2022-04-27 | [facility] | // | (missing) | (missing) | | (unavailable | 16:50 | [facility] | | | + + + +------+ + + + + | Result panel 52 | + + + + + +-------+---------+ + | | 2022-04-27 | [facility] | 0.9 | mg/dL | (missing) | | (unavailable | 16:50 | [facility] | | | | + + + +-------+---------+ + + + | Result panel 53 | + + + + + +------+ + + | | 2022-04-27 | [facility] | // | (missing) | (missing) | | (unavailable | 16:50 | [facility] | | | + + + +------+ + + + + | Result panel 54 | + + + + + +------+ [...] 56 | + + + + + +--------+ + + | | 2022-04-27 | [facility] | 5.25 | (missing) | (missing) | | (unavailable | 16:50 | [facility] | | | + + + +--------+ + + + + | Result panel 57 | + + + + + +--------+ + + | | 2022-04-27 | [facility] | 15.0 | (missing) | (missing) | | (unavailable | 16:50 | [facility] | | | + + + +--------+ + + + + | Result panel 58 | + + + + + +--------+ + + | | 2022-04-27 | [facility] | 46.5 | (missing) | (missing) | | (unavailable | 16:50 | [facility] | | | + + + +--------+ + + + + | Result panel 59 | + + + + + +--------+ + + | | 2022-04-27 | [facility] | 88.7 | (missing) | (missing) | | (unavailable | 16:50 | [facility] | | | + + + +--------+ + + + + | Result panel 60 | + + + + + +--------+ [...] 62 | + + + + + +--------+ [...] 64 | + + + + + +--------+ + + | | 2022-04-27 | [facility] | 70.0 | (missing) | (missing) | | (unavailable | 16:50 | [facility] | | | + + + +--------+ + + + + | Result panel 65 | + + + + + +--------+ + + | | 2022-04-27 | [facility] | 22.5 | (missing) | (missing) | | (unavailable | 16:50 | [facility] | | | + + + +--------+ + + + + | Result panel 66 | + + + + + +-------+ + + | | 2022-04-27 | [facility] | 6.9 | (missing) | (missing) | | (unavailable | 16:50 | [facility] | | | + + + +-------+ + + + + | Result panel 67 | + + + + + +-------+ [...] 69 | + + + + + + + + + | | 2022-04-27 | [facility] | YELLOW | (missing) | (missing) | | (unavailable | 16:50 | [facility] | | | + + + + + + + + + | Result panel 70 | + + + + + +---------+ + + | | 2022-04-27 | [facility] | CLEAR | (missing) | (missing) | | (unavailable | 16:50 | [facility] | | | + + + +---------+ + + + + | Result panel 71 | + + + + + + + + + | | 2022-04-27 | [facility] | NEGATIVE | (missing) | (missing) | | (unavailable | 16:50 | [facility] | | | + + + + + + + + + | Result panel 72 | + + + + + + + + + | | 2022-04-27 | [facility] | NEGATIVE | (missing) | (missing) | | (unavailable | 16:50 | [facility] | | | + + + + + + + + + | Result panel 73 | + + + + + + + + + | | 2022-04-27 | [facility] | NEGATIVE | (missing) | (missing) | | (unavailable | 16:50 | [facility] | | | + + + + + + + + + | Result panel 74 | + + + + + +---------+ + + | | 2022-04-27 | [facility] | 1.010 | (missing) | (missing) | | (unavailable | 16:50 | [facility] | | | + + + +---------+ + + + + | Result panel 75 | + + + + + + [...] 77 | + + + + + + + + + | | 2022-04-27 | [facility] | NEGATIVE | (missing) | (missing) | | (unavailable | 16:50 | [facility] | | | + + + + + + + + + | Result panel 78 | + + + + + + + + + | | 2022-04-27 | [facility] | NORMAL | (missing) | (missing) | | (unavailable | 16:50 | [facility] | | | | + + + + + + + + + | Result panel 79 | + + + + + + + + + | | 2022-04-27 | [facility] | NEGATIVE | (missing) | (missing) | | (unavailable | 16:50 | [facility] | | | | + + + + + + + + + | Result panel 80 | + + + + + + + + + | | 2022-04-27 | [facility] | NEGATIVE | (missing) | (missing) | | (unavailable | 16:50 | [facility] | | | | + + + + + + + + + | Result panel 81 | + + + + + + + + + | | 2022-04-27 | [facility] | CLEAN CATCH | (missing) | (missing) | | (unavailable | 16:50 | [facility] | | | | + + + + + + + + + | Result panel 82 | + + + + + +-------+---------+ + | | 2022-04-27 | [facility] | 141 | mg/dL | (missing) | | (unavailable | 16:50 | [facility] | | | + + + +-------+---------+ + + + | Result panel 83 | + + + + + +-----+---------+ + | | 2022-04-27 | [facility] | 5 | mg/dL | (missing) | | (unavailable | 16:50 | [facility] | | | + + + +-----+---------+ + + + | Result panel 84 | + + + + + +--------+---------+ + | | 2022-04-27 | [facility] | 0.88 | mg/dL | (missing) | | (unavailable | 16:50 | [facility] | | | + + + +--------+---------+ + + + | Result panel 85 [...] 86 | + + + + + +--------+ + + | | 2022-04-27 | [facility] | 5.68 | (missing) | (missing) | | (unavailable | 16:50 | [facility] | | | + + + +--------+ + + + + | Result panel 87 | + + + + + +-------+ + + | | 2022-04-27 | [facility] | 135 | (missing) | (missing) | | (unavailable | 16:50 | [facility] | | | + + + +-------+ + + + + | Result panel 88 | + + + + + +-------+ + + | | 2022-04-27 | [facility] | 3.2 | (missing) | (missing) | | (unavailable | 16:50 | [facility] | | | | + + + +-------+ + + + + | Result panel 89 | + + + + + +-------+ + + | | 2022-04-27 | [facility] | 100 | (missing) | (missing) | | (unavailable | 16:50 | [facility] | | | + + + +-------+ + + + + | Result panel 90 | + + + + + +------+ + + | | 2022-04-27 | [facility] | 25 | (missing) | (missing) | | (unavailable | 16:50 | [facility] | | | + + + +------+ + + + + | Result panel 91 | + + + + + +--------+ + + | | 2022-04-27 | [facility] | 13.2 | (missing) | (missing) | | (unavailable | 16:50 | [facility] | | | + + + +--------+ + + + + | Result panel 92 | + + + + + +-------+---------+ + | | 2022-04-27 | [facility] | 8.4 | mg/dL | (missing) | | (unavailable | 16:50 | [facility] | | | + + + +-------+---------+ + + + | Result panel 93 | + + + + + +-------+ + + | | 2022-04-27 | [facility] | 7.8 | (missing) | (missing) | | (unavailable | 16:50 | [facility] | | | | + + + +-------+ + + + + | Result panel 94 | + + + + + +-------+ + + | | 2022-04-27 | [facility] | 3.7 | (missing) | (missing) | | (unavailable | 16:50 | [facility] | | | | + + + +-------+ + + + + | Result panel 95 | + + + + + +-------+ + + | | 2022-04-27 | [facility] | 4.1 | (missing) | (missing) | | (unavailable | 16:50 | [facility] | | | | + + + +-------+ + + + + | Result panel 96 | + + + + + +--------+ + + | | 2022-04-27 | [facility] | 0.90 | (missing) | (missing) | | (unavailable | 16:50 | [facility] | | | | + + + +--------+ + + + + | Result panel 97 | + + + + + +-------+ + + | | 2022-04-27 | [facility] | 0.4 | (missing) | (missing) | | (unavailable | 16:50 | [facility] | | | + + + +-------+ + + + + | Result panel 98 | + + + + + +------+ + + | | 2022-04-27 | [facility] | 28 | (missing) | (missing) | | (unavailable | 16:50 | [facility] | | | | + + + +------+ + + + + | Result panel 99 | + + + + + +------+ + + | | 2022-04-27 | [facility] | 42 | (missing) | (missing) | | (unavailable | 16:50 | [facility] | | | | + + + +------+ + + + + | Result panel 100 | + + + + + +------+ + + | | 2022-04-27 | [facility] | 93 | (missing) | (missing) | | (unavailable | 16:50 | [facility] | | | | + + + +------+ + + + + | Result panel 101 | + + + + + +------+ + + | | 2022-04-27 | [facility] | 61 | (missing) | (missing) | | (unavailable | 16:50 | [facility] | | | | + + + +------+ + + + + | Result panel 102 | + + + + + + [...] (missing) | (missing) | | (unavailable | :09 | [facility] | | | | + + + +------+ + + + + | Result panel 110 | + + + + + +-------+ + + | | 2022-04-27 | [facility] | 1.1 | (missing) | (missing) | | (unavailable | :09 | [facility] | | | [...] (missing) | | (unavailable | 03:36 | [facility] | | | | ) | [...] 115 | + + + + + +--------+ + + | | 2022-05-20 | [facility] | 42.1 | (missing) | (missing) | | (unavailable | 03:36 | [facility] | | | | + + + +--------+ + + + + | Result panel 116 | + + + + + +--------+ + + | | 2022-05-20 | [facility] | 87.9 | (missing) | (missing) | | (unavailable | 03:36 | [facility] | | | | + + + +--------+ + + + + | Result panel 117 | + + + + + +--------+ + + | | 2022-05-20 | [facility] | 28.5 | (missing) | (missing) | | (unavailable | 03:36 | [facility] | | | | + + + +--------+ + + + + | Result panel 118 | + + + + + +--------+ + + | | 2022-05-20 | [facility] | 32.5 | (missing) | (missing) | | (unavailable | 03:36 | [facility] | | | + + + +--------+ + + + + | Result panel 119 | + + + + + +--------+ + + | | 2022-05-20 | [facility] | 14.0 | (missing) | (missing) | | (unavailable | 03:36 | [facility] | | | | + + + +--------+ + + + + | Result panel 120 | + + + + + +-------+ + + | | 2022-05-20 | [facility] | 336 | (missing) | (missing) | | (unavailable | 03:36 | [facility] | | | + + + +-------+ + + + + | Result panel 121 [...] 123 | + + + + + +-------+ + + | | 2022-05-20 | [facility] | 9.1 | (missing) | (missing) | | (unavailable | 03:36 | [facility] | | | | + + + +-------+ + + + + | Result panel 124 | + + + + + +-------+ + + | | 2022-05-20 | [facility] | 3.3 | (missing) | (missing) | | (unavailable | 03:36 | [facility] | | | | + + + +-------+ + + + + | Result panel 125 | + + + + + +-------+ + + | | 2022-05-20 | [facility] | 0.8 | (missing) | (missing) | | (unavailable | 03:36 | [facility] | | | | + + + +-------+ + + + + | Result panel 126 | + + + + + +-------+---------+ + | | 2022-05-20 | [facility] | 120 | mg/dL | (missing) | | (unavailable | 03:36 | [facility] | | | + + + +-------+---------+ + + + | Result panel 127 | + + + + + +-----+---------+ + | | 2022-05-20 | [facility] | 9 | mg/dL | (missing) | | (unavailable | 03:36 | [facility] | | | + + + +-----+---------+ + + + | Result panel 128 | + + + + + +--------+---------+ + | | 2022-05-20 | [facility] | 0.92 | mg/dL | (missing) | | (unavailable | 03:36 | [facility] | | | + + + +--------+---------+ + + + | Result panel 129 | + + + + + +------+ [...] 131 | + + + + + +-------+ + + | | 2022-05-20 | [facility] | 139 | (missing) | (missing) | | (unavailable | 03:36 | [facility] | | | + + + +-------+ + + + + | Result panel 132 [...] 134 | + + + + + +------+ + + | | 2022-05-20 | [facility] | 23 | (missing) | (missing) | | (unavailable | 03:36 | [facility] | | | + + + +------+ + + + + | Result panel 135 | + + + + + +--------+ + + | | 2022-05-20 | [facility] | 17.6 | (missing) | (missing) | | (unavailable | 03:36 | [facility] | | | + + + +--------+ + + + + | Result panel 136 | + + + + + +-------+---------+ + | | 2022-05-20 | [facility] | 8.4 | mg/dL | (missing) | | (unavailable | 03:36 | [facility] | | | + + + +-------+---------+ + + + | Result panel 137 | + + + + + +-------+ + + | | 2022-05-20 | [facility] | 7.0 | (missing) | (missing) | | (unavailable | 03:36 | [facility] | | | | + + + +-------+ + + + + | Result panel 138 | + + + + + +-------+ + + | | 2022-05-20 | [facility] | 3.2 | (missing) | (missing) | | (unavailable | 03:36 | [facility] | | | | + + + +-------+ + + + + | Result panel 139 | + + + + + +-------+ + + | | 2022-05-20 | [facility] | 3.8 | (missing) | (missing) | | (unavailable | 03:36 [facility] | | | + + + +-------+ + + + + | Result panel 140 | + + + + + +--------+ [...] 143 | + + + + + +------+ [...] 145 | + + + + + +-------+ + + | | 2022-05-20 | [facility] | 6.2 | (missing) | (missing) | | (unavailable | 03:36 [facility] | | | + + + +-------+ + + + + | Result panel 146 | + + + + + +--------+ + + | | 2022-05-20 | [facility] | 4.79 | (missing) | (missing) | | (unavailable | 03:36 [facility] | | | + + + +--------+ + + + + | Result panel 147 | + + + + + +--------+ + + | | 2022-05-20 | [facility] | 13.7 | (missing) | (missing) | | (unavailable | 03:36 | [facility] | | | | + + + +--------+ + + + + | Result panel 148 | + + + + + +--------+ + + | | 2022-05-20 | [facility] | 42.1 | (missing) | (missing) | | (unavailable | 03:36 | [facility] | | | + + + +--------+ + + + + | Result panel 149 | + + + + + +--------+ [...] 151 | + + + + + +--------+ + + | | 2022-05-20 | [facility] | 32.5 | (missing) | (missing) | | (unavailable | 03:36 [facility] | | | + + + +--------+ + + + + | Result panel 152 | + + + + + +--------+ + + | | 2022-05-20 | [facility] | 14.0 | (missing) | (missing) | | (unavailable | 03:36 [facility] | | | + + + +--------+ + + + + | Result panel 153 | + + + + + +-------+ + + | | 2022-05-20 | [facility] | 336 | (missing) | (missing) | | (unavailable | 03:36 | [facility] | | | + + + +-------+ + + + + | Result panel 154 | + + + + + +--------+ + + | | 2022-05-20 | [facility] | 33.1 | (missing) | (missing) | | (unavailable | 03:36 [facility] | | | + + + +--------+ + + + + | Result panel 155 | + + + + + +--------+ + + | | 2022-05-20 | [facility] | 53.7 | (missing) | (missing) | | (unavailable | 03:36 [facility] | | | + + + +--------+ + + + + | Result panel 156 | + + + + + +-------+ [...] 159 | + + + + + +-------+---------+ + | | 2022-05-20 | [facility] | 120 | mg/dL | (missing) | | (unavailable | 03:36 [facility] | | | + + + +-------+---------+ + + + | Result panel 160 | + + + + + +-----+---------+ + | | 2022-05-20 | [facility] | 9 | mg/dL | (missing) | | (unavailable | 03:36 [facility] | | | + + + +-----+---------+ + + + | Result panel 161 | + + + + + +--------+---------+ + | | 2022-05-20 | [facility] | 0.92 | mg/dL | (missing) | | (unavailable | 03:36 [facility] | | | + + + +--------+---------+ + + + | Result panel 162 | + + + + + +------+ + + | | 2022-05-20 | [facility] | 89 | (missing) | (missing) | | (unavailable | 03:36 [facility] | | | + + + +------+ + + + + | Result panel 163 | + + + + + +--------+ [...] 166 | + + + + + +-------+ + + | | 2022-05-20 | [facility] | 102 | (missing) | (missing) | | (unavailable | 03:36 [facility] | | | + + + +-------+ + + + + | Result panel 167 | + + + + + +------+ + + | | 2022-05-20 | [facility] | 23 | (missing) | (missing) | | (unavailable | 03:36 [facility] | | | + + + +------+ + + + + | Result panel 168 | + + + + + +--------+ + + | | 2022-05-20 | [facility] | 17.6 | (missing) | (missing) | | (unavailable | 03:36 [facility] | | | + + + +--------+ + + + + | Result panel 169 | + + + + + +-------+---------+ + | | 2022-05-20 | [facility] | 8.4 | mg/dL | (missing) | | (unavailable | 03:36 [facility] | | | + + + +-------+---------+ + + + | Result panel 170 | + + + + + +-------+ + + | | 2022-05-20 | [facility] | 7.0 | (missing) | (missing) | | (unavailable | 03:36 | [facility] | | | | + + + +-------+ + + + + | Result panel 171 | + + + + + +-------+ + + | | 2022-05-20 | [facility] | 3.2 | (missing) | (missing) | | (unavailable | 03:36 [facility] | | | | + + + +-------+ + + + + | Result panel 172 | + + + + + +-------+ [...] 174 | + + + + + +-------+ + + | | 2022-05-20 | [facility] | 0.3 | (missing) | (missing) | | (unavailable | 03:36 | [facility] | | | | + + + +-------+ + + + + | Result panel 175 | + + + + + +------+ + + | | 2022-05-20 | [facility] | 31 | (missing) | (missing) | | (unavailable | 03:36 [facility] | | | | + + + +------+ + + + + | Result panel 176 | + + + + + +------+ + + | | 2022-05-20 | [facility] | 39 | (missing) | (missing) | | (unavailable | 03:36 [facility] | | | | + + + +------+ + + + + | Result panel 177 | + + + + + +------+ + + | | 2022-05-20 | [facility] | 94 | (missing) | (missing) | | (unavailable | 03:36 [facility] | | | | + + + +------+ + + + + | Result panel 178 | + + + + + + [...] + + + + | Result panel 206 | + + + + + +-------+ + + | | 2023-02-28 | [facility] | 7.6 | (missing) | (missing) | | (unavailable | 21:55:07 | [facility] | | | | + + + +-------+ + + + + | Result panel 207 | + + + + + +--------+ + + | | 2023-02-28 | [facility] | 59.8 | (missing) | (missing) | | (unavailable | 21:55:07 [facility] | | | | + + + +--------+ + + + + | Result panel 208 | + + + + + +--------+ + + | | 2023-02-28 | [facility] | 30.1 | (missing) | (missing) | | (unavailable | 21:55:07 [facility] | | | | + + + +--------+ + + + + | Result panel 209 | + + + + + +-------+ + + | | 2023-02-28 | [facility] | 8.9 | (missing) | (missing) | | (unavailable | 21:55:07 [facility] | | | | + + + +-------+ + + + + | Result panel 210 | + + + + + +-------+ + + | | 2023-02-28 | [facility] | 0.9 | (missing) | (missing) | | (unavailable | 21:55:07 [facility] | | | | + + + +-------+ + + + + | Result panel 211 | + + + + + +-------+ + + | | 2023-02-28 | [facility] | 0.3 | (missing) | (missing) | | (unavailable | 21:55:07 [facility] | | | | + + + +-------+ + + + + | Result panel 212 | + + + + + +--------+ + + | | 2023-02-28 | [facility] | 5.37 | (missing) | (missing) | | (unavailable | 21:55:07 [facility] | | | | + + + +--------+ + + + + | Result panel 213 | + + + + + +--------+ + + | | 2023-02-28 | [facility] | 15.4 | (missing) | (missing) | | (unavailable | 21:55:07 [facility] | | | | + + + +--------+ + + + + | Result panel 214 | + + + + + +-------+---------+ + | | 2023-02-28 | [facility] | 119 | mg/dL | (missing) | | (unavailable | 21:55:07 [facility] | | | | + + + +-------+---------+ + + + | Result panel 215 | + + + + + +-----+---------+ + | | 2023-02-28 | [facility] | 7 | mg/dL | (missing) | | (unavailable | 21:55:07 | [facility] | | | | + + + +-----+---------+ + + + | Result panel 216 | + + + + + +--------+---------+ + | | 2023-02-28 | [facility] | 0.84 | mg/dL | (missing) | | (unavailable | [facility]:55:07 [facility] | | | | + + + +--------+---------+ + + + | Result panel 217 | + + + + + +------+ + + | | 2023-02-28 | [facility] | 98 | (missing) | (missing) | | (unavailable | [facility]55:07 [facility] | | | | + + + +------+ + + + + | Result panel 218 | + + + + + +--------+ + + | | 2023-02-28 | [facility] | 8.33 | (missing) | (missing) | | (unavailable | [facility] | | | | + + + +--------+ + + + + | Result panel 219 | + + + + + +--------+ + + | | 2023-02-28 | [facility] | 47.3 | (missing) | (missing) | | (unavailable | [facility]07 [facility] | | | | + + + +--------+ + + + + | Result panel 220 | + + + + + +-------+ + + | | 2023-02-28 | [facility] | 137 | (missing) | (missing) | | (unavailable | [facility]55[facility]07 [facility] | | | | + + + +-------+ + + + + | Result panel 221 | + + + + + +-------+ + + | | 2023-02-28 | [facility] | 3.5 | (missing) | (missing) | | (unavailable | [facility] | | | | + + + +-------+ + + + + | Result panel 222 | + + + + + +-------+ + + | | 2023-02-28 | [facility] | 102 | (missing) | (missing) | | (unavailable | [facility]07 [facility] | | | | + + + +-------+ + + + + | Result panel 223 | + + + + + +------+ + + | | 2023-02-28 | [facility] | 26 | (missing) | (missing) | | (unavailable | [facility]07 [facility] | | | | + + + +------+ + + + + | Result panel 224 | + + + + + +--------+ + + | | 2023-02-28 | [facility] | 12.5 | (missing) | (missing) | | (unavailable | [facility] | | | + + + +--------+ + + + + | Result panel 225 | + + + + + +-------+---------+ + | | 2023-02-28 | [facility] | 9.0 | mg/dL | (missing) | | (unavailable | [facility]07 [facility] | | | + + + +-------+---------+ + + + | Result panel 226 | + + + + + +-------+ + + | | 2023-02-28 | [facility] | 8.1 | (missing) | (missing) | | (unavailable | [facility] | | | | + + + +-------+ + + + + | Result panel 227 | + + + + + +-------+ + + | | 2023-02-28 | [facility] | 3.7 | (missing) | (missing) | | (unavailable | [facility] | | | | + + + +-------+ + + + + | Result panel 228 | + + + + + +-------+ + + | | 2023-02-28 | [facility] | 4.4 | (missing) | (missing) | | (unavailable | [facility] | | | | + + + +-------+ + + + + | Result panel 229 | + + + + + +--------+ + + | | 2023-02-28 | [facility] | 0.84 | (missing) | (missing) | | (unavailable | [facility]07 [facility] | | | + + + +--------+ + + + + | Result panel 230 | + + + + + +--------+ + + | | 2023-02-28 | [facility] | 88.1 | (missing) | (missing) | | (unavailable | [facility]07 [facility] | | | | + + + +--------+ + + + + | Result panel 231 | + + + + + +-------+ + + | | 2023-02-28 | [facility] | 0.3 | (missing) | (missing) | | (unavailable | [facility]07 [facility] | | | | + + + +-------+ + + + + | Result panel 232 | + + + + + +------+ + + | | 2023-02-28 | [facility] | 29 | (missing) | (missing) | | (unavailable | :55:07 [facility] | | | | + + + +------+ + + + + | Result panel 233 | + + + + + +------+ + + | | 2023-02-28 | [facility] | 44 | (missing) | (missing) | | (unavailable | [facility]55:07 [facility] | | | + + + +------+ + + + + | Result panel 234 | + + + + + +-------+ + + | | 2023-02-28 | [facility] | 109 | (missing) | (missing) | | (unavailable | [facility]55:07 [facility] | | | | + + + +-------+ + + + + | Result panel 235 | + + + + + + + + + | | 2023-02-28 | [facility] | NEGATIVE | (missing) | (missing) | | (unavailable | [facility]07 [facility] | | | | + + + + + + + + + | Result panel 236 | + + + + + +--------+ + + | | 2023-02-28 | [facility] | 28.8 | (missing) | (missing) | | (unavailable | [facility]07 [facility] | | | + + + +--------+ + + + + | Result panel 237 | + + + + + +--------+ + + | | 2023-02-28 | [facility] | 32.6 | (missing) | (missing) | | (unavailable | [facility]07 [facility] | | | | + + + +--------+ + + + + | Result panel 238 | + + + + + +--------+ + + | | 2023-02-28 | [facility] | 14.0 | (missing) | (missing) | | (unavailable | [facility] | | | + + + +--------+ + + + + | Result panel 239 | + + + + + +-------+ + + | | 2023-02-28 | [facility] | 366 | (missing) | (missing) | | (unavailable | [facility]:07 [facility] | | | | + + + +-------+ + + + + | Result panel 240 | + + + + + + + + + | | 2023-02-28 | [facility] | YELLOW | (missing) | (missing) | | (unavailable | [facility]00:07 [facility] | | | | + + + + + + + + + | Result panel 241 | + + + + + +---------+ + + | | 2023-02-28 | [facility] | CLEAR | (missing) | (missing) | | (unavailable | [facility]00:07 [facility] | | | | + + + +---------+ + + + + | Result panel 242 | + + + + + + + + + | | 2023-02-28 | [facility] | NEGATIVE | (missing) | (missing) | | (unavailable | [facility]00:07 [facility] | | | | + + + + + + + + + | Result panel 243 | + + + + + + + + + | | 2023-02-28 | [facility] | NEGATIVE | (missing) | (missing) | | (unavailable | ::07 | [facility] | | | | + + + + + + + + + | Result panel 244 | + + + + + +---------+ + + | | 2023-02-28 | [facility] | TRACE | (missing) | (missing) | | (unavailable | ::07 | [facility] | | | | + + + +---------+ + + + + | Result panel 245 | + + + + + +---------+ + + | | 2023-02-28 | [facility] | 1.025 | (missing) | (missing) | | (unavailable | 22::07 [facility] | | | | + + + +---------+ + + + + | Result panel 246 | + + + + + + + + + | | 2023-02-28 | [facility] | NEGATIVE | (missing) | (missing) | | (unavailable | 22::07 [facility] | | | | + + + + + + + + + | Result panel 247 | + + + + + +-------+ + + | | 2023-02-28 | [facility] | 5.5 | (missing) | (missing) | | (unavailable | 22::07 [facility] | | | | + + + +-------+ + + + + | Result panel 248 | + + + + + + + + + | | 2023-02-28 | [facility] | NEGATIVE | (missing) | (missing) | | (unavailable | 22::07 [facility] | | | | + + + + + + + + + | Result panel 249 | + + + + + + + + + | | 2023-02-28 | [facility] | NORMAL | (missing) | (missing) | | (unavailable | ::07 | [facility] | | | | + + + + + + + + + | Result panel 250 | + + + + + + + + + | | 2023-02-28 | [facility] | POSITIVE | (missing) | (missing) | | (unavailable | ::07 | [facility] | | | | + + + + + + + + + | Result panel 251 | + + + + + + + + + | | 2023-02-28 | [facility] | NEGATIVE | (missing) | (missing) | | (unavailable | [facility]:00:07 [facility] | | | | + + + + + + + + + | Result panel 252 | + + + + + +-------+ + + | | 2023-02-28 | [facility] | 0-1 | (missing) | (missing) | | (unavailable | [facility]:00:07 [facility] | | | | + + + +-------+ + + + + | Result panel 253 | + + + + + +-------+ + + | | 2023-02-28 | [facility] | 4-6 | (missing) | (missing) | | (unavailable | [facility]00:07 [facility] | | | | + + + +-------+ + + + + | Result panel 254 | + + + + + + + + + | | 2023-02-28 | [facility] | SQUAMOUS 2+ | (missing) | (missing) | | (unavailable | [facility]:00:07 [facility] | | | | + + + + + + + + + | Result panel 255 | + + + + + + + + + | | 2023-02-28 | [facility] | NONE SEEN | (missing) | (missing) | | (unavailable | [facility]:00:07 [facility] | | | | + + + + + + + + + | Result panel 256 | + + + + + +------+ + + | | 2023-02-28 | [facility] | 1+ | (missing) | (missing) | | (unavailable | [facility]00:07 [facility] | | | | + + + +------+ + + + + | Result panel 257 | + + + + + + + + + | | 2023-02-28 | [facility] | NONE SEEN | (missing) | (missing) | | (unavailable | [facility]00:07 [facility] | | | | + + + + + + + + + | Result panel 258 | + + + + + +------+ + + | | 2023-02-28 | [facility] | No | (missing) | (missing) | | (unavailable | [facility]00:07 [facility] | | | | + + + +------+ + + + + | Result panel 259 | + + + + + + + + + | | 2023-02-28 | [facility] | CLEAN CATCH | (missing) | (missing) | | (unavailable | 22:00:07 | [facility] | | | | [...] | | + + + +---------+ | 2023-02-28 00:00 | BMI | 34.9 | kg/m2 | + + + +---------+ | 2023-02-28 00:00 | height_metric | 162.56 | cm | + + + +---------+ | 2023-02-28 00:00 | height_standard | 64 | in | + + + +---------+ | 2023-02-28 00:00 | weight_metric | 92.1 | kg | + + + +---------+ | 2023-02-28 00:00 | weight_standard | 203.04 | lb | + + + +---------+ | 2023-02-28 00:00 | weight_standard | 203.05 | lb | + + + +---------+ | 2023-03-01 00:00 | BP_diastolic | 79 | mmHg | + + + +---------+ | 2023-03-01 00:00 | BP_systolic | 109 | mmHg | + + + +---------+ | 2023-03-01 00:00 | heart_rate | 102 | /min | + + + +---------+ | 2023-03-01 00:00 | o2_saturation | 98 | % | + + + +---------+ | 2023-03-01 00:00 | respiration_rate | 14 | /min | + + + +---------+ | 2023-03-01 00:00 | temperature_metric | 36.5 | C | | | | | | + + + +---------+ | 2023-03-01 00:00 | | 97.7 | F | | | temperature_standar | | | | | d | | | + + + +---------+"
--- OUTSIDE RECORDS SUMMARY | ~2023-03-21 | XMS | Continuity of Care Document ---
Demographics + + + | Address | [address] | | | [place] [address] | + + + | Preferred Language | Unknown | + + + | Marital Status | Never | + + + | Zoroastrianism Affiliation | Unknown | + + + | Race | White | + + + | Ethnic Group | Not or | + + + Author + + + | Author | [facility] | + + + | Organization | [facility] | + + + | Address | [address] | | | [place] [address] | + + + | Phone | | + + + Care Team Providers + + + + | Care Community Service Coordinator Name | Role | Phone | + [...] | 2020-05-19 00:00 | Influenza, Injectable, | [facility] | | | Quadrivalent, Preservative | | + + + + Medications + + + + | date | description | facility | + + + + | 2022-03-23 00:00 | OXYCODONE | [facility] | | | HCL/ACETAMINOPHEN | | + + + + | 2022-04-27 00:00 | OXYCODONE | [facility] | | | HCL/ACETAMINOPHEN | | + + + + | 2022-05-20 00:00 | OXYCODONE | [facility] | | | HCL/ACETAMINOPHEN | | + + + + | 2022-06-05 00:00 | OXYCODONE | [facility] | | | HCL/ACETAMINOPHEN | | + + + + | 2023-03-01 00:00 | OXYCODONE | [facility] | | | HCL/ACETAMINOPHEN | | + + + + | 2022-03-23 00:00 | LAMOTRIGINE | [facility] | + + + + | 2022-04-27 00:00 | LAMOTRIGINE | [facility] | + + + + | 2022-05-20 00:00 | LAMOTRIGINE | [facility] | + + + + | 2022-06-05 00:00 | LAMOTRIGINE | [facility] | + + + + | 2023-03-01 00:00 | LAMOTRIGINE | [facility] | + + + + | 2022-03-23 00:00 | LURASIDONE HCL | [facility] | + + + + | 2022-04-27 00:00 | LURASIDONE HCL | [facility] | + + + + | 2022-05-20 00:00 | LURASIDONE HCL | [facility] | + + + + | 2022-06-05 00:00 | LURASIDONE HCL | [facility] | + + + + | 2023-03-01 00:00 | LURASIDONE HCL | [facility] | + + + + | 2022-03-23 00:00 | ISOTRETINOIN | [facility] | + + + + | 2022-04-27 00:00 | ISOTRETINOIN | [facility] | + + + + | 2022-05-20 00:00 | ISOTRETINOIN | [facility] | + + + + | 2022-06-05 00:00 | ISOTRETINOIN | [facility] | + + + + | 2023-03-01 00:00 | ISOTRETINOIN | [facility] | + + + + | 2022-03-23 00:00 | HYDROCODONE | [facility] | | | BIT/ACETAMINOPHEN | | + + + + | 2022-04-27 00:00 | HYDROCODONE | [facility] | | | BIT/ACETAMINOPHEN | | + + + + | 2022-05-20 00:00 | HYDROCODONE | [facility] | | | BIT/ACETAMINOPHEN | | + + + + | 2022-06-05 00:00 | HYDROCODONE | [facility] | | | BIT/ACETAMINOPHEN | | + + + + | 2023-03-01 00:00 | HYDROCODONE | [facility] | | | BIT/ACETAMINOPHEN | | + + + + | 2017-03-23 00:00 | LIDOCAINE | [facility] | + + + + | 2022-03-23 00:00 | NITROFURANTOIN | [facility] | | | MACROCRYSTAL | | + + + + | 2022-04-27 00:00 | NITROFURANTOIN | [facility] | | | MACROCRYSTAL | | + + + + | 2022-05-20 00:00 | NITROFURANTOIN | [facility] | | | MACROCRYSTAL | | + + + + | 2022-06-05 00:00 | NITROFURANTOIN | [facility] | | | MACROCRYSTAL | | + + + + | 2023-03-01 00:00 | NITROFURANTOIN | [facility] | | | MACROCRYSTAL | | + + + + | 2022-03-23 00:00 | FLUTICASONE PROPIONATE 50 | [facility] | | | MCG | | + + + + | 2022-04-27 00:00 | FLUTICASONE PROPIONATE 50 | [facility] | | | MCG | | + + + + | 2022-05-20 00:00 | FLUTICASONE PROPIONATE 50 | [facility] | | | MCG | | + + + + | 2022-06-05 00:00 | FLUTICASONE PROPIONATE 50 | [facility] | | | MCG | | + + + + | 2023-03-01 00:00 | FLUTICASONE PROPIONATE 50 | [facility] | | | MCG | | + + + + | 2022-03-23 00:00 | CLONAZEPAM | [facility] | + + + + | 2022-04-27 00:00 | CLONAZEPAM | [facility] | + + + + | 2022-05-20 00:00 | CLONAZEPAM | [facility] | + + + + | 2022-06-05 00:00 | CLONAZEPAM | [facility] | + + + + | 2023-03-01 00:00 | CLONAZEPAM | [facility] | + + + + | 2022-03-23 00:00 | clonAZEpam | [facility] | + + + + | 2022-04-27 00:00 | clonAZEpam | [facility] | + + + + | 2022-05-20 00:00 | clonAZEpam | [facility] | + + + + | 2022-06-05 00:00 | clonAZEpam | [facility] | + + + + | 2023-03-01 00:00 | clonAZEpam | [facility] | + + + + | 2022-03-23 00:00 | IBUPROFEN | [facility] | + + + + | 2022-04-27 00:00 | IBUPROFEN | [facility] | + + + + | 2022-05-20 00:00 | IBUPROFEN | [facility] | + + + + | 2022-06-05 00:00 | IBUPROFEN | [facility] | + + + + | 2023-03-01 00:00 | IBUPROFEN | [facility] | + + + + | 2022-03-23 00:00 | IBUPROFEN | [facility] | + + + + | 2022-04-27 00:00 | IBUPROFEN | [facility] | + + + + | 2022-05-20 00:00 | IBUPROFEN | [facility] | + + + + | 2022-06-05 00:00 | IBUPROFEN | [facility] | + + + + | 2023-03-01 00:00 | IBUPROFEN | [facility] | + + + + | 2022-03-23 00:00 | LITHIUM CARBONATE | [facility] | + + + + | 2022-04-27 00:00 | LITHIUM CARBONATE | [facility] | + + + + | 2022-05-20 00:00 | LITHIUM CARBONATE | [facility] | + + + + | 2022-06-05 00:00 | LITHIUM CARBONATE | [facility] | + + + + | 2023-03-01 00:00 | LITHIUM CARBONATE | [facility] | + + + + | 2023-03-01 00:00 | SPIRONOLACTONE | [facility] | + + + + | 2022-03-23 00:00 | | [facility] | | | SULFAMETHOXAZOLE/TRIMETHOPR | | | | IM | | + + + + | 2022-04-27 00:00 | | [facility] | | | SULFAMETHOXAZOLE/TRIMETHOPR | | | | IM | | + + + + | 2022-05-20 00:00 | | [facility] | | | SULFAMETHOXAZOLE/TRIMETHOPR | | | | IM | | + + + + | 2022-06-05 00:00 | | [facility] | | | SULFAMETHOXAZOLE/TRIMETHOPR | | | | IM | | + + + + | 2023-03-01 00:00 | | [facility] | | | SULFAMETHOXAZOLE/TRIMETHOPR | | | | IM | | + + + + | 2020-10-29 00:00 | ACETAMINOPHEN | [facility] | + + + + | 2022-03-23 00:00 | LORAZEPAM | [facility] | + + + + | 2022-04-27 00:00 | LORAZEPAM | [facility] | + + + + | 2022-05-20 00:00 | LORAZEPAM | [facility] | + + + + | 2022-06-05 00:00 | LORAZEPAM | [facility] | + + + + | 2023-03-01 00:00 | LORAZEPAM | [facility] | + + + + | 2022-03-23 00:00 | METOCLOPRAMIDE HCL | [facility] | + + + + | 2022-04-27 00:00 | METOCLOPRAMIDE HCL | [facility] | + + + + | 2022-05-20 00:00 | METOCLOPRAMIDE HCL | [facility] | + + + + | 2022-06-05 00:00 | METOCLOPRAMIDE HCL | [facility] | + + + + | 2023-03-01 00:00 | METOCLOPRAMIDE HCL | [facility] | + + + + | 2022-03-23 00:00 | SERTRALINE HCL | [facility] | + + + + | 2022-04-27 00:00 | SERTRALINE HCL | [facility] | + + + + | 2022-05-20 00:00 | SERTRALINE HCL | [facility] | + + + + | 2022-06-05 00:00 | SERTRALINE HCL | [facility] | + + + + | 2023-03-01 00:00 | SERTRALINE HCL | [facility] | + + + + | 2022-03-23 00:00 | METHYLPREDNISOLONE | [facility] | + + + + | 2022-04-27 00:00 | METHYLPREDNISOLONE | [facility] | + + + + | 2022-05-20 00:00 | METHYLPREDNISOLONE | [facility] | + + + + | 2022-06-05 00:00 | METHYLPREDNISOLONE | [facility] | + + + + | 2023-03-01 00:00 | METHYLPREDNISOLONE | [facility] | + + + + | 2022-03-23 00:00 | ALPRAZOLAM | [facility] | + + + + | 2022-04-27 00:00 | ALPRAZOLAM | [facility] | + + + + | 2022-05-20 00:00 | ALPRAZOLAM | [facility] | + + + + | 2022-06-05 00:00 | ALPRAZOLAM | [facility] | + + + + | 2023-03-01 00:00 | ALPRAZOLAM | [facility] | + + + + | 2020-10-29 00:00 | FAMOTIDINE | [facility] | + + + + | 2022-03-23 00:00 | LORATADINE | [facility] | + + + + | 2022-04-27 00:00 | LORATADINE | [facility] | + + + + | 2022-05-20 00:00 | LORATADINE | [facility] | + + + + | 2022-06-05 00:00 | LORATADINE | [facility] | + + + + | 2023-03-01 00:00 | LORATADINE | [facility] | + + + + | 2022-03-23 00:00 | METOCLOPRAMIDE HCL | [facility] | + + + + | 2022-04-27 00:00 | METOCLOPRAMIDE HCL | [facility] | + + + + | 2022-05-20 00:00 | METOCLOPRAMIDE HCL | [facility] | + + + + | 2022-06-05 00:00 | METOCLOPRAMIDE HCL | [facility] | + + + + | 2023-03-01 00:00 | METOCLOPRAMIDE HCL | [facility] | + + + + | 2022-03-23 00:00 | METRONIDAZOLE | [facility] | + + + + | 2022-04-27 00:00 | METRONIDAZOLE | [facility] | + + + + | 2022-05-20 00:00 | METRONIDAZOLE | [facility] | + + + + | 2022-06-05 00:00 | METRONIDAZOLE | [facility] | + + + + | 2023-03-01 00:00 | METRONIDAZOLE | [facility] | + + + + | 2022-03-23 00:00 | ONDANSETRON | [facility] | + + + + | 2022-04-27 00:00 | ONDANSETRON | [facility] | + + + + | 2022-05-20 00:00 | ONDANSETRON | [facility] | + + + + | 2022-06-05 00:00 | ONDANSETRON | [facility] | + + + + | 2023-03-01 00:00 | ONDANSETRON | [facility] | + + + + | 2020-10-29 00:00 | SUCRALFATE | [facility] | + + + + | 2022-03-23 00:00 | SUCRALFATE | [facility] | + + + + | 2022-04-27 00:00 | SUCRALFATE | [facility] | + + + + | 2022-05-20 00:00 | SUCRALFATE | [facility] | + + + + | 2022-06-05 00:00 | SUCRALFATE | [facility] | + + + + | 2023-03-01 00:00 | SUCRALFATE | [facility] | + + + + | 2022-03-23 00:00 | VALACYCLOVIR HCL | [facility] | + + + + | 2022-04-27 00:00 | VALACYCLOVIR HCL | [facility] | + + + + | 2022-05-20 00:00 | VALACYCLOVIR HCL | [facility] | + + + + | 2022-06-05 00:00 | VALACYCLOVIR HCL | [facility] | + + + + | 2023-03-01 00:00 | VALACYCLOVIR HCL | [facility] | + + + + | 2022-03-23 00:00 | ACETAMINOPHEN | [facility] | + + + + | 2022-04-27 00:00 | ACETAMINOPHEN | [facility] | + + + + | 2022-05-20 00:00 | ACETAMINOPHEN | [facility] | + + + + | 2022-06-05 00:00 | ACETAMINOPHEN | [facility] | + + + + | 2023-03-01 00:00 | ACETAMINOPHEN | [facility] | + + + + | 2022-03-23 00:00 | SUCRALFATE | [facility] | + + + + | 2022-04-27 00:00 | SUCRALFATE | [facility] | + + + + | 2022-05-20 00:00 | SUCRALFATE | [facility] | + + + + | 2022-06-05 00:00 | SUCRALFATE | [facility] | + + + + | 2023-03-01 00:00 | SUCRALFATE | [facility] | + + + + | 2022-03-23 00:00 | ESCITALOPRAM OXALATE | [facility] | + + + + | 2022-04-27 00:00 | ESCITALOPRAM OXALATE | [facility] | + + + + | 2022-05-20 00:00 | ESCITALOPRAM OXALATE | [facility] | + + + + | 2022-06-05 00:00 | ESCITALOPRAM OXALATE | [facility] | + + + + | 2023-03-01 00:00 | ESCITALOPRAM OXALATE | [facility] | + + + + | 2023-03-01 00:00 | ARIPIPRAZOLE | [facility] | + + + + | 2022-03-23 00:00 | ESCITALOPRAM OXALATE | [facility] | + + + + | 2022-04-27 00:00 | ESCITALOPRAM OXALATE | [facility] | + + + + | 2022-05-20 00:00 | ESCITALOPRAM OXALATE | [facility] | + + + + | 2022-06-05 00:00 | ESCITALOPRAM OXALATE | [facility] | + + + + | 2023-03-01 00:00 | ESCITALOPRAM OXALATE | [facility] | + + + + | 2022-03-23 00:00 | ARIPIPRAZOLE | [facility] | + + + + | 2022-04-27 00:00 | ARIPIPRAZOLE | [facility] | + + + + | 2022-05-20 00:00 | ARIPIPRAZOLE | [facility] | + + + + | 2022-06-05 00:00 | ARIPIPRAZOLE | [facility] | + + + + | 2023-03-01 00:00 | ARIPIPRAZOLE | [facility] | + + + + | 2022-03-23 00:00 | ESCITALOPRAM OXALATE | [facility] | + + + + | 2022-04-27 00:00 | ESCITALOPRAM OXALATE | [facility] | + + + + | 2022-05-20 00:00 | ESCITALOPRAM OXALATE | [facility] | + + + + | 2022-06-05 00:00 | ESCITALOPRAM OXALATE | [facility] | + + + + | 2023-03-01 00:00 | ESCITALOPRAM OXALATE | [facility] | + + + + | 2022-03-23 00:00 | ARIPIPRAZOLE | [facility] | + + + + | 2022-04-27 00:00 | ARIPIPRAZOLE | [facility] | + + + + | 2022-05-20 00:00 | ARIPIPRAZOLE | [facility] | + + + + | 2022-06-05 00:00 | ARIPIPRAZOLE | [facility] | + + + + | 2023-03-01 00:00 | ARIPIPRAZOLE | [facility] | + + + + | 2022-03-23 00:00 | POTASSIUM CHLORIDE | [facility] | + + + + | 2022-04-27 00:00 | POTASSIUM CHLORIDE | [facility] | + + + + | 2022-05-20 00:00 | POTASSIUM CHLORIDE | [facility] | + + + + | 2022-06-05 00:00 | POTASSIUM CHLORIDE | [facility] | + + + + | 2023-03-01 00:00 | POTASSIUM CHLORIDE | [facility] | + + + + | 2022-03-23 00:00 | ALBUTEROL SULFATE | [facility] | + + + + | 2022-04-27 00:00 | ALBUTEROL SULFATE | [facility] | + + + + | 2022-05-20 00:00 | ALBUTEROL SULFATE | [facility] | + + + + | 2022-06-05 00:00 | ALBUTEROL SULFATE | [facility] | + + + + | 2023-03-01 00:00 | ALBUTEROL SULFATE | [facility] | + + + + | 2022-03-23 00:00 | LEVONORGESTREL | [facility] | + + + + | 2022-04-27 00:00 | LEVONORGESTREL | [facility] | + + + + | 2022-05-20 00:00 | LEVONORGESTREL | [facility] | + + + + | 2022-06-05 00:00 | LEVONORGESTREL | [facility] | + + + + | 2023-03-01 00:00 | LEVONORGESTREL | [facility] | + + + + | 2017-02-15 00:00 | AMOXICILLIN/POTASSIUM CLAV | [facility] | | | | | + + + + | 2022-03-23 00:00 | CYCLOBENZAPRINE HCL | [facility] | + + + + | 2022-04-27 00:00 | CYCLOBENZAPRINE HCL | [facility] | + + + + | 2022-05-20 00:00 | CYCLOBENZAPRINE HCL | [facility] | + + + + | 2022-06-05 00:00 | CYCLOBENZAPRINE HCL | [facility] | + + + + | 2023-03-01 00:00 | CYCLOBENZAPRINE HCL | [facility] | + + + + | 2022-03-23 00:00 | ADAPALENE/BENZOYL PEROXIDE | [facility] | | | | | + + + + | 2022-04-27 00:00 | ADAPALENE/BENZOYL PEROXIDE | [facility] | | | | | + + + + | 2022-05-20 00:00 | ADAPALENE/BENZOYL PEROXIDE | [facility] | | | | | + + + + | 2022-06-05 00:00 | ADAPALENE/BENZOYL PEROXIDE | [facility] | | | | | + + + + | 2023-03-01 00:00 | ADAPALENE/BENZOYL PEROXIDE | [facility] | | | | | + + + + | 2017-02-15 00:00 | HYDROCODONE | [facility] | | | BIT/ACETAMINOPHEN | | + + + + | 2022-03-23 00:00 | HYDROCODONE | [facility] | | | BIT/ACETAMINOPHEN | | + + + + | 2022-04-27 00:00 | [facility] | | | BIT/ACETAMINOPHEN | | + + + + | 2022-05-20 00:00 | HYDROCODONE | [facility] | | | BIT/ACETAMINOPHEN | | + + + + | 2022-06-05 00:00 | HYDROCODONE | [facility] | | | BIT/ACETAMINOPHEN | | + + + + | 2023-03-01 00:00 | HYDROCODONE | [facility] | | | BIT/ACETAMINOPHEN | | + + + + | 2022-05-20 00:00 | AMPHET ASP/AMPHET/D-AMPHET | [facility] | | | | | + + + + | 2022-05-20 00:00 | AMPHET ASP/AMPHET/D-AMPHET | [facility] | | | | | + + + + | 2022-06-05 00:00 | AMPHET ASP/AMPHET/D-AMPHET | [facility] | | | | | + + + + | 2023-03-01 00:00 | AMPHET ASP/AMPHET/D-AMPHET | [facility] | | | | | + + + + | 2023-03-01 00:00 | CLONIDINE HCL | [facility] | + + + + | 2020-10-29 00:00 | HYDROmorphone HCL | [facility] | + + + + | 2015-06-30 00:00 | PROMETHAZINE HCL | [facility] | + + + + | 2022-03-23 00:00 | PROMETHAZINE HCL | [facility] | + + + + | 2022-04-27 00:00 | PROMETHAZINE HCL | [facility] | + + + + | 2022-05-20 00:00 | PROMETHAZINE HCL | [facility] | + + + + | 2022-06-05 00:00 | PROMETHAZINE HCL | [facility] | + + + + | 2023-03-01 00:00 | PROMETHAZINE HCL | [facility] | + + + + | 2022-03-23 00:00 | PROMETHAZINE HCL | [facility] | + + + + | 2022-04-27 00:00 | PROMETHAZINE HCL | [facility] | + + + + | 2022-05-20 00:00 | PROMETHAZINE HCL | [facility] | + + + + | 2022-06-05 00:00 | PROMETHAZINE HCL | [facility] | + + + + | 2023-03-01 00:00 | PROMETHAZINE HCL | [facility] | + + + + Problems + + + + | date | description | facility | + + + + | 2015-06-30 00:00 | Vomiting | [facility] | + + + + | 2015-12-14 00:00 | Postoperative infection | [facility] | + + + + | [...] + + | 2015-12-14 02:12 | 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) | [facility] | | | DRUG THERAPY | | + + + + | 2015-12-30 00:00 | Abdominal pain | [facility] | + + + + | 2017-02-15 00:00 | Cyst of Bartholin's gland | [facility] | | | duct | | + + + + | 2017-03-23 00:00 | Vaginal pain | [facility] | + + + + | 2017-04-09 00:00 | Depression with suicidal | [facility] | | | ideation | | + + + + | 2017-05-25 00:00 | | [facility] | + + + + | 2020-07-08 00:00 | Hypokalemia | [facility] | + + + + | 2020-07-08 00:00 | Paresthesia | [facility] | + + + + | 2021-07-17 00:00 | Abdominal hernia | [facility] | + + + + | 2022-03-23 00:00 | Adverse effect of lithium | [facility] | + + + + | 2022-04-27 00:00 | [place] toxicity | [facility] | + + + + | 2023-02-28 [...] + + | 2023-02-28 21:38 | OTHER SHELTER (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
[~2023-03-21 18:46] MED LIST changes: +ARIPIPRAZOLE20 MG PO; +CLONIDINE HCL0.1 MG PO; +SPIRONOLACTONE50 MG PO
--- OUTSIDE RECORDS SUMMARY | 2023-03-21 18:51 | XMS ---
PreManage Notification: RADHA ULRICH [employer] Events No recent Security Events currently on file CRITERIA MET - PDM - [facility] - 2 Visits in 30 Days CARE PROVIDERS ROMEL HOOK Physician Community Organization Worker 07/11/2020-Current PHONE: Unknown -, Geovani- Dentist: Ergonomics Engineer [facility] PHONE: [phone] Skyla Chappell-Geovanni Nurse Practitioner: Family Current PHONE: [phone] Tenisha has no Care Guidelines for this patient. E.D. VISIT COUNT (12 MO.) 5 TIM [facility] TOTAL 5 NOTE: Visits indicate total known visits. ED/UCC VISIT TRACKING (12 MO.) 03/21/2023 18:46 [facility] TYPE: Emergency COMPLAINT: - ABDOMINAL PAIN 02/28/2023 21:38 [facility] TYPE: Emergency COMPLAINT: - ABD PAIN DIAGNOSES: - Allergy status to narcotic agent - Allergy status to other antibiotic agents - Allergy status to sulfonamides - Other long term care phlebotomist (current) drug therapy - Unspecified abdominal pain - Unspecified asthma, uncomplicated - Unspecified ovarian cyst, right side 05/20/2022 03:33 [facility] TYPE: Emergency COMPLAINT: - ANXIETY DIAGNOSES: - Allergy status to other antibiotic agents - Allergy status to sulfonamides - Anxiety disorder, unspecified - Cannabis use, unspecified with anxiety disorder - Other long term care phlebotomist (current) drug therapy - Unspecified asthma, uncomplicated 04/27/2022 16:39 [facility] TYPE: Emergency COMPLAINT: - VOMITING DIAGNOSES: - Allergy status to other antibiotic agents - Allergy status to sulfonamides - Diarrhea, unspecified - Nausea with vomiting, unspecified - Other skilled nursing (current) drug therapy - Toxic effect of [...] visits to display in this time frame [id number]
[2023-03-21 19:35] LABS: BILIRUBIN, URINE NEGATIVE (negative); BLOOD/HGB, URINE NEGATIVE (Negative); KETONE, URINE NEGATIVE (Negative); LEUK ESTERASE, URINE NEGATIVE (negative); NITRITE, URINE NEGATIVE (negative); PH, URINE 5.5 (5-7)
[2023-03-21 19:36] LABS: BASOPHILS 0.8 % (0-2); EOSINOPHILS 2.1 % (0-6); HEMATOCRIT 46.1 % (35.0-50.0); LYMPHOCYTES 29.3 % (24-44); MCH 28.8 (27-36); MCHC 32.6 g/dl (30-36); MCV 88.2 fl (81-99); MONOCYTES 8.6 % (0-12); NEUTROPHILS 59.2 % (39-80); PLATELET COUNT 384 K/uL (140-440); RBC 5.23 M/ul (4.3-5.7); RDW 14.2 (10.5-15.0)
[2023-03-21 19:46] LABS: ALBUMIN 3.6 g/dL (3.4-5.0); ALBUMIN/GLOBULIN RATIO 0.82 (1.1-2.4); ANION GAP 14.4 (7-21); BILIRUBIN, TOTAL 0.2 ng/dL (0.2-1.0); BUN/CREATININE RATIO 6.41 (6.0-28.6); CALCIUM 9.1 mg/dL (8.5-10.1); CREATININE, SERUM 0.78 mg/dL (0.55-1.02); POTASSIUM 3.4 mmol/L (3.5-5.1)
[2023-03-21 19:49] LABS: LACTIC ACID, BLOOD 1.8 mmol/L (0.4-2.0)
[2023-03-21] MEDS ORDERED: AMOX TR-K CLV1 EAC1 PO (20:43)
[2023-03-21 20:56] VITALS: BP 117/81
== END 2023-03-21 20:56 | disposition home or self-care (01) ==
LOC: ED 18:46
PROVIDERS: Internal Medicine
DX: L03.316 Cellulitis of umbilicus (principal); J45.909 Unspecified asthma, uncomplicated; Z88.5 Allergy status to narcotic agent; Z88.1 Allergy status to other antibiotic agents; Z88.2 Allergy status to sulfonamides; Z79.899 Other long term (current) drug therapy
CPT/HCPCS: 36415; 71045; 74177; 80053; 81003; 83605; 84703; 85025; 96375; 99284-25; J1885; J2405; J7121; Q9967

== ENCOUNTER 2025-01-04 12:43 | Emergency (ER) | payer OTHER ==
[~2025-01-04] VITALS: Ht 162.6 cm; Wt 89.0 kg
[~2025-01-04 12:43] MED LIST changes: +AMOX TR-K CLV1 EAC1 PO; +METHYLPHENIDATE36 MG PO
[2025-01-04 13:50] VITALS: BP 105/80
== END 2025-01-04 13:51 | disposition home or self-care (01) ==
LOC: ED 12:43
DX: S93.602A Unspecified sprain of left foot, initial encounter (principal); J45.909 Unspecified asthma, uncomplicated; Z88.5 Allergy status to narcotic agent; Z88.2 Allergy status to sulfonamides; Z88.1 Allergy status to other antibiotic agents; Z79.899 Other long term (current) drug therapy; W20.8XXA Other cause of strike by thrown, projected or falling object, initial encounter
CPT/HCPCS: 73630; 99283

== ENCOUNTER 2025-07-06 05:55 | Day surgery (SDC) | payer OTHER ==
[~2025-07-06] VITALS: Ht 162.6 cm; Wt 90.9 kg
[~2025-07-06 05:55] MED LIST changes: +24 HOUR ALLERG9.9 ML NS; +ABILIFY20 MG PO; +AMPHETAMINE SAL10 MG PO; +HYDROXYZINE HCL25 MG PO; +LACTATED RINGER'S 1,000 ML IV SCH; +LEXAPRO10 MG PO; +METHYLPHENIDATE PO; +MIRENA1 EAC3 IY; +PROVIGIL100 MG PO; +VENTOLIN HFA18 GM INH; +VRAYLAR1.5 MG PO; +VYVANSE40 MG PO
[2025-07-06 06:12] VITALS: BP 113/82
[2025-07-06 06:34] LABS: BASOPHILS 0.5 % (0.1-1.2); BASOPHILS, ABSOLUTE 0.03 K/uL (0.01-0.08); EOSINOPHILS 3.9 % (0.7-5.8); EOSINOPHILS, ABSOLUTE 0.24 K/uL (0.04-0.36); LYMPHOCYTES 33.7 % (19.3-51.7); MCH 27.3 PG (25.6-32.2); MCHC 31.7 g/dL (32.2-35.5); MCV 86.3 fL (79.4-94.8); MONOCYTES 9.0 % (4.7-12.5); MONOCYTES, ABSOLUTE 0.56 K/uL (0.24-0.86); NEUTROPHILS 52.6 % (34.0-71.1); NEUTROPHILS, ABSOLUTE 3.28 K/uL (1.56-6.13); RBC 5.31 M/uL (3.93-5.22)
[2025-07-06] MEDS ORDERED: HEParin SOD (PORCINE) 5,000 UNIT/ML SDV SUB-Q SCH (07:00)
[2025-07-06] MEDS ORDERED: CEFAZOLIN SODIUM 2 GM in SODIUM CHLORIDE 0.9% 100 ML IV SCH (07:00)
[2025-07-06] MEDS ORDERED: IBLOOD GLUCOSE TEST STRIP 1 EA TEST VI PRN ×2 (07:00→08:15)
[2025-07-06] MEDS ORDERED: LIDOCAINE HCL 1% 5 ML SDV INJ ONE (07:00)
[2025-07-06 07:01] LABS: ALT (SGPT) 23.0 U/L (14-59); AST (SGOT) 15.0 U/L (15-37); GLOMERULAR FILTRATION RATE,EST 95.0 mL/min (>60); PROTEIN, TOTAL 7.4 g/dL (6.4-8.2); UREA NITROGEN 7.0 mg/dL (7-18)
[2025-07-06] MEDS ORDERED: fentaNYL citrate 100 MCG/2 ML VIAL ONE (07:28)
[2025-07-06] MEDS ORDERED: ROCURONIUM BROMIDE 50 MG/5 ML SYR ONE ×2 (07:28→07:45)
[2025-07-06] MEDS ORDERED: DEXAMETHASONE SOD PHOS 4 MG/ML VIAL ONE (07:28)
[2025-07-06] MEDS ORDERED: KETAMINE in NS 50 MG/5 ML SYR ONE (07:28)
[2025-07-06] MEDS ORDERED: ACETAMINOPHEN 1,000 MG/100 ML VIAL ONE (07:28)
[2025-07-06] MEDS ORDERED: MIDAZOLAM HCL 2 MG/2 ML VIAL ONE (07:28)
[2025-07-06] MEDS ORDERED: MAGNESIUM SULFATE 1 GM/2 ML VIAL ONE ×2 (07:28→09:29)
[2025-07-06] MEDS ORDERED: LIDOCAINE HCL 2% 5 ML SDV ONE ×2 (07:28→09:29)
[2025-07-06] MEDS ORDERED: SODIUM CHLORIDE 0.9% 20 ML IV ONE (07:37)
[2025-07-06] MEDS ORDERED: SODIUM CHLORIDE 0.9% 40 ML IV ONE (07:45)
[2025-07-06] MEDS ORDERED: PHENYLEPHRINE HCL IN 0.9% NACL 1 MG/10 ML SYR ONE (07:50)
[2025-07-06] MEDS ORDERED: KETOROLAC TROMETHAMINE 30 MG/ML VIAL IV PRN (08:15)
[2025-07-06] MEDS ORDERED: NALOXONE HCL 0.4 MG SYR IV PRN ×2 (08:15→09:15)
[2025-07-06] MEDS ORDERED: fentaNYL citrate 50 MCG/ML SDV IV PRN (08:15)
--- NOTE | 2025-07-06 09:09 | NUR ---
07/06/25 0909 Katherine Mar 0902: PT ARRIVES TO PACU REACTIVE TO STIMULI. SHE IS CONNECTED TO MONITORS. REPORT RECEIVED FROM OFFAL WORKER AND JOURNEYMAN MACHINIST. LE 0906: PT IS REPORTING BURNING PAIN 8/10. NO NAUSEA.
[2025-07-06] MEDS ORDERED: LACTATED RINGER'S 1,000 ML IV SCH (09:15)
[2025-07-06] MEDS ORDERED: ACETAMINOPHEN 500 MG TAB PO PRN (09:15)
[2025-07-06] MEDS ORDERED: IBUPROFEN 600 MG TAB PO PRN (09:15)
[2025-07-06] MEDS ORDERED: OXYCODONE/APAP 7.5/325 TAB PO PRN (09:15)
[2025-07-06] MEDS ORDERED: IBUPROFEN600 MG PO (09:17)
[2025-07-06] MEDS ORDERED: AMOX TR-K CLV1 EACH PO (09:17)
[2025-07-06] MEDS ORDERED: OXYCODON-ACETA1 EAC2 PO (09:18)
[2025-07-06] MEDS ORDERED: ACETAMINOPHEN500 MG PO (09:18)
[2025-07-06] MEDS ORDERED: ACETAMINOPHEN/CODEINE #3 1 EA TAB PO ONE (09:30)
[2025-07-06 09:47] VITALS: BP 96/54
[2025-07-06] MEDS ORDERED: OXYCODONE HCL 5 MG TAB PO ONE (10:00)
--- NOTE | 2025-07-06 10:00 | NUR ---
0950-PT BACK TO ROOM FROM PACU ON . RECEIVED REPORT FROM LETY AREVALO. PT IS AWAKE. RESP EVEN AND UNLABORED. PT RATES PAIN AN 8/10. REPORTS A BURNING/STINGING PAIN. DENIES NAUSEA. PT IS DRINKIN WATER AND EATING CRACKERS. 0956-VO PER DR GILES FOR OXYCODONE 10MG NOW.
--- NOTE | 2025-07-06 10:08 | NUR ---
1008-PAIN MEDICATION GIVEN PER EMAR. NO OTHER NEEDS AT THIS TIME. CALL LIGHT WITHIN REACH
--- NOTE | 2025-07-06 10:40 | NUR ---
INTO PTS ROOM FOR ROUTINE REASSESSMENT. VS TAKEN. IV SITE ASSESSED. PT DENIES NAUSEA WHEN ASKED. PT REPORTS PAIN 7/10, SLIGHTLY IMPROVED WITH PAIN MEDICATION GIVEN PER EMAR. SURGICAL SITE ASSESSED AND SMALL AMT OF SHADOWING PRESENT IN CENTER OF DRSG ON ABD. DRSG REMAINS FIRMLY INTACT. PTS MOTHER AT BEDSIDE. PT TAKING PO FLUIDS WELL. ICE WATER REFILLED. PT HAS EATEN SOME CRACKERS ALSO. DENIES URGE TO VOID. CALL LIGHT WITHIN PT REACH. FALL PREVENTIONS IN PLACE.
[2025-07-06 10:47] VITALS: BP 94/48
--- NOTE | 2025-07-06 11:50 | NUR ---
INTO PTS ROOM TO ANSWER CALL LIGHT. PT REPORTS URGE TO VOID. PT UP TO RESTROOM WITH DURABILITY ENGINEER ASSISTANCE FOR SAFETY. PT TABLE TO VOID APPROX 600 ML OF PALE, CLR, YELLOW URINE. PT DENIES NAUSEA WHEN ASKED. SURGICAL SITE VISUALIZED POST-AMBULATION AND NO ACUTE CHANGES NOTED FROM PREVIOUS ASSESSMENT. VS TAKEN. PT REPORTS PAIN REMAINS TOLERABLE AT 6/10. MOTHER AT BEDSIDE. PT PROVIDED WITH VERBAL AND WRITTEN DC EDUCATION AND POST OP APPT. ALL QUESTIONS ANSWERED. IV REMOVED. TIP APPEARS INTACT. PRESSURE DRSG APPLIED WITH GAUZE AND COBAN. PT DRESSING FOR DISCHARGE WITH MOTHERS ASSISTANCE. CALL LIGHT AND PERSONAL BELONGINGS WITHIN PT REACH.
[2025-07-06 11:54] VITALS: BP 107/66
[2025-07-06] MEDS ORDERED: AMOXICILLIN/CLAVULANATE K 500 MG TAB PO SCH (12:00)
--- NOTE | 2025-07-06 12:15 | NUR ---
PT DISCHARGED FROM DS VIA WC TO PASSENGER SIDE OF MOTHERS VEHICLE. ALL PERSONAL BELONGINGS TAKEN WITH PT.
[2025-07-06] MEDS ORDERED: SEVOFLURANE 250 ML BTL INH ONE (15:59)
--- NOTE | 2025-07-07 12:50 | OR ---
[facility] [address] [place], [place] [address] Signed DATE OF OPERATION: 07/06/2025 SURGEON: Rajiv Giles MD PREOPERATIVE DIAGNOSES: 1. Persistently draining episodically infected sinus at infraumbilical incision site. 2. History of incisional hernia repair with implantation of Prolene mesh. POSTOPERATIVE DIAGNOSIS: Infected draining sinus at the infraumbilical area, likely related to infected mesh. PROCEDURES: 1. Excision of infected Prolene mesh. 2. Excision of portion of draining umbilical sinus tract. 3. Closure of fascial defect 4 cm. ANESTHESIA: General endotracheal; Kirt Carvajal, ROLL WRAPPER and local 10 mL of 0.25% Marcaine with epinephrine. INDICATION: This 30-year-old white woman is a patient of Cheryl Hassan MD. 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 She had considerable weight gain thereafter. She had been quite compromised with oral intake at that time. She over time gained a considerable amount of weight, developed an incisional hernia requiring repair with implantation of Prolene mesh. The patient has asthma persistent basis and has significant obesity and developed episodic drainage at the umbilicus. Local drainage procedures were ineffective in resolution of the problem. 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 She is admitted at this time to undergo excision of the persistently draining infected sinus as well as mesh excision as appropriate. The risk of bleeding, infection, persistent disease, recurrent disease and other unforeseen complications including development of hernia were all reviewed with her in detail. She understands and wished to proceed. FINDINGS: With manipulation of the infraumbilical area. A small amount of purulent material could be expressed. Gram stain and cultures were obtained. Stat Gram stain showing no Electronically Signed By: RAJIV GILES MD 07/07/25 3800 PATIENT NAME: RADHA ULRICH OPERATIVE REPORT DATE OF : [birth year] REPORT #: [id number] PHYSICIAN: RAJIV GILES MD PCP: CHERYL HASSAN MD REPORT IS CONFIDENTIAL AND NOT TO BE RELEASED WITHOUT AUTHORIZATION [facility] [address] [place], [place] [address] Signed organisms. Elliptical incision was taken of the sinus tract and was dissected down through the subcutaneous tissue through the fascial edges to the properitoneal space where Prolene mesh was implanted. Of note, in the deepest portions, the mesh was quite densely adherent and not likely infected in that particular area of the sinus tract. No doubt has had chronic persistent infection and drainage. Complete resection has been accomplished. The fascial edges that remained were reasonably mancuso and were reapproximated with interrupted Prolene. The wound left only loosely closed for drainage. DESCRIPTION OF PROCEDURE: The patient was brought to the operating room, given a general endotracheal anesthetic. Preoperative antibiotic Ancef was given. Sequential compression device stockings used. The abdomen was prepared with chlorhexidine solution and draped sterilely. The area of chronic inflammation and irritation was noted inferior to the umbilicus. Manipulation allowed for expression of small amount of purulence. This was Gram stained and cultured. Elliptical incision was made incorporating this area and dissection was carried through the dermis sharply. Electrocautery was used for hemostasis. A firm fibrous cord consistent with a draining sinus tract was identified and excised circumferentially into normal-appearing fat down to the fascial edge and wide resection of the overlying fascia and down through to the Prolene mesh had been implanted in the subfascial space. Wide resection was undertaken but without entry into the abdominal cavity. There was no connection to intraabdominal viscera in any way. Complete excision was undertaken of the fibrous tissue and mesh, though admittedly the mesh in the deepest portion did not appear particularly unincorporated. Irrigation was undertaken. The fascial defect was then reapproximated with interrupted 0 Prolene suture in a horizontal mattress configuration. A 10 mL of 0.25% Marcaine with epinephrine injected locally. Subcutaneous tissue was irrigated and a single interrupted 3-0 Vicryl was used to close the space of the fat, interrupted 3-0 Vicryl in the deep dermal layer for the skin. Without fully occluding the wound an Acticoat dressing was applied. She was extubated and during the course of that had a fair amount of straining against the incision. She is known to have reactive airways and straining with cough has been a problem in the past; ultimately, this ceased and the wound was stabilized during this episode of straining She was taken to the recovery room in good condition. MD ERICA Seay/NATHAN Electronically Signed By: RAJIV GILES MD 07/07/25 1250 PATIENT NAME: RADHA ULRICH OPERATIVE REPORT DATE OF : [birth year] REPORT #: [id number] PHYSICIAN: RAJIV GILES MD PCP: CHERYL HASSAN MD REPORT IS CONFIDENTIAL AND NOT TO BE RELEASED WITHOUT AUTHORIZATION [facility] [address] [place] [address] Signed /[id number] cc: Dr. Cheryl Hassan Copies: ~ Electronically Signed By: RAJIV GILES MD 07/07/25 1250 PATIENT NAME: RADHA ULRICH [place] OPERATIVE REPORT DATE OF : [birth year] REPORT #: [id number] PHYSICIAN: RAJIV GILES MD PCP: CHERYL HASSAN MD REPORT IS CONFIDENTIAL AND NOT TO BE RELEASED WITHOUT AUTHORIZATION
[2025-07-20] MEDS ORDERED: DOXYCYCLINE HY100 MG PO (16:58)
[2025-07-20] MEDS ORDERED: WAKIX17.8 MG PO (18:30)
[2025-07-22] MEDS ORDERED: CLINDAMYCIN HC300 MG PO (15:27)
[2025-07-22] MEDS ORDERED: DOXYCYCLINE HY100 MG PO (15:27)
[2025-07-22] MEDS ORDERED: OXYCODONE HCL5 M1 PO (15:34)
== END 2025-07-06 12:15 | disposition home or self-care (01) ==
LOC: DS 05:55
PROVIDERS: ATTEND Surgery
PROC: 0WQF0ZZ Repair Abdominal Wall, Open Approach (ICD-10-PCS; 2025-07-06)
PROC: 0WPF0JZ Removal of Synthetic Substitute from Abdominal Wall, Open Approach (ICD-10-PCS; principal; 2025-07-06 07:30)
DX: T81.49XA Infection following a procedure, other surgical site, initial encounter (principal); Z88.1 Allergy status to other antibiotic agents; Z88.8 Allergy status to other drugs, medicaments and biological substances; Z88.2 Allergy status to sulfonamides
CPT/HCPCS: 00400; 36415; 80053; 84703; 85025; 87070; 87075; 87205; 88305; A9270; J0131; J0165; J0688; J1100; J1644; J1885; J2003; J2250; J2405; J2704; J3010; J3475; J3490; J7121

== ENCOUNTER 2025-07-13 07:14 | Emergency (ER) | payer OTHER ==
[~2025-07-13] VITALS: Ht 162.6 cm; Wt 91.7 kg
--- OUTSIDE RECORDS SUMMARY | ~2025-07-13 | XMS | Continuity of Care Document ---
Demographics + + + | Address | [address] | | | [place] [address] | + + + | Preferred Language | Unknown | + + + | Marital Status | Never | + + + | Religion Affiliation | Unknown | + + + | Race | White | + + + | Ethnic Group | Not or | + + + Author + + + | Author | [facility] | + + + | Organization | [facility] | + + + | Address | [address] | | | [place] [address] | + + + | Phone | | + + + Care Team Providers + + + + | Care Gas Combustion Engineer Name | Role | Phone | + + + + Unavailable | Unavailable | + + + + Unavailable | Unavailable | + + + + Allergies and Intolerances + + + + + + | date | description | facility | reaction | severity | + + + + + + | 2025-07-06 | | [facility] - | Fever | Mild | | 00:00 | Sulfamethoxazol | [facility] e [facility] Hospital | | | + + + + + + | 2025-07-06 | | [facility] - | (no reaction) | (no severity) | | 00:00 | sulfamethoxazol | [facility] | | | [facility] e | Hospital | | | + + + + + + | 2025-07-06 | Trimethoprim | [facility] - | Fever | Mild | | 00:00 | | [facility] | | | + + + + + + | 2025-07-06 | trimethoprim | [facility] - | (no reaction) | (no severity) | | 00:00 | | [facility] | | | + + + + + + | 2025-07-06 | Hydrocodone | [facility] - | Diarrhea | Mild | | 00:00 | | [facility] | | | + + + + + + | 2025-07-06 | Trimethoprim | [facility] - | Fever | Mild | | 00:00 | | [facility] | | | + + + + + + | 2025-07-06 | | [facility] - | Fever | Mild | | 00:00 | Sulfamethoxazol | [facility] | [facility] e | Hospital | | | + + + + + + | 2025-07-06 | Hydrocodone | [facility] - | Diarrhea | Mild | | 00:00 | | [facility] | | | + + + + + + | 2025-07-06 | hydrocodone | [facility] - | (no reaction) | (no severity) | | 00:00 | | [facility] | | | + + + + + + | 2025-07-06 | Hydrocodone | [facility] - | Diarrhea | Mild | | 00:00 | | [facility] | | | + + + + + + | 2025-07-06 | Trimethoprim | [facility] - | Fever | Mild | | 00:00 | | [facility] | | | + + + + + + | 2025-07-06 | | [facility] - | Fever | Mild | | 00:00 | Sulfamethoxazol | [facility] | | | | | e | Hospital | | | + + + + + + Encounters No information. Functional Status No information. Immunizations + + + + | date | description | facility | + + + + | (no date) | No vaccine administered | [facility] | | | | [facility] | + + + + Medications + + + + | date | description | facility | + + + + | 2025-07-06 00:00 | OXYCODONE | [facility] | | | HCL/ACETAMINOPHEN | [facility] | + + + + | 2025-07-06 00:00 | acetaminophen 325 MG / | [facility] | | | oxycodone hydrochloride 7.5 | [facility] | | | MG Oral T | | + + + + | (no date) | OXYCODONE | [facility] | | | HCL/ACETAMINOPHEN | [facility] | + + + + | (no date) | acetaminophen 325 MG / | [facility] | | | oxycodone hydrochloride 5 | [facility] | | | MG Oral Tab | | + + + + | (no date) | LAMOTRIGINE | [facility] | | | | [facility] | + + + + | (no date) | lamotrigine 25 MG Oral | [facility] | | | Tablet [Lamictal] | [facility] | + + + + | (no date) | LURASIDONE HCL | [facility] | | | | [facility] | + + + + | (no date) | lurasidone hydrochloride | [facility] | | | 20 MG Oral Tablet [Latuda] | [facility] | + + + + | (no date) | ISOTRETINOIN | [facility] | | | | [facility] | + + + + | (no date) | isotretinoin 40 MG Oral | [facility] | | | Capsule [Myorisan] | [facility] | + + + + | (no date) | HYDROCODONE | [facility] | | | BIT/ACETAMINOPHEN | [facility] | + + + + | (no date) | acetaminophen 300 MG / | [facility] | | | hydrocodone bitartrate 5 MG | [facility] | | | Oral Tabl | | + + + + | (no date) | NITROFURANTOIN | [facility] | | | MACROCRYSTAL | [facility] | + + + + | (no date) | nitrofurantoin, | [facility] - | | | macrocrystals 100 MG Oral | [facility] | | | Capsule | | + + + + | (no date) | Cariprazine Hydrochloride | [facility] | | | | [facility] | + + + + | (no date) | cariprazine 1.5 MG Oral | [facility] | | | Capsule [Vraylar] | [facility] | + + + + | (no date) | Fluticasone Propionate | [facility] | | | | [facility] | + + + + | (no ) | fluticasone propionate | [facility] | | | 0.05 MG/ACTUAT Metered Dose | [facility] | | | Nasal Spr | | + + + + | (no date) | 50/50 Release 24 HR | [facility] | | | methylphenidate | [facility] | | | hydrochloride 60 MG Exte | | + + + + | (no date) | Methylphenidate HCl | [facility] | | | | [facility] | + + + + | (no ) | CLONAZEPAM | [facility] | | | | [facility] | + + + + | (no ) | clonazepam 1 MG Oral | [facility] | | | Tablet | [facility] | + + + + | (no date) | clonAZEpam | [facility] | | | | [facility] | + + + + | (no date) | clonazepam 2 MG Oral | [facility] | | | Tablet | [facility] | + + + + | (no date) | IBUPROFEN | [facility] | | | | [facility] | + + + + | 2025-07-06 00:00 | IBUPROFEN | [facility] | | | | [facility] | + + + + | (no date) | ibuprofen 600 MG Oral | [facility] | | | Tablet | [facility] | + + + + | 2025-07-06 00:00 | ibuprofen 600 MG Oral | [facility] | | | Tablet | [facility] | + + + + | (no date) | IBUPROFEN | [facility] | | | [facility] | + + + + | (no date) | ibuprofen 800 MG Oral | [facility] | | | Tablet | [facility] | + + + + | (no date) | LITHIUM CARBONATE | [facility] | | | | [facility] | + + + + | (no date) | lithium carbonate 300 MG | [facility] | | | Oral Capsule | [facility] | + + + + | (no date) | SPIRONOLACTONE | [facility] | | | | [facility] | + + + + | (no date) | spironolactone 50 MG Oral | [facility] | | | Tablet | [facility] | + + + + | (no date) | | [facility] | | | SULFAMETHOXAZOLE/TRIMETHOPR | [facility] | | | IM | | + + + + | (no date) | sulfamethoxazole 800 MG / | [facility] | | | trimethoprim 160 MG Oral | [facility] | | | Tablet | | + + + + | 2025-07-06 00:00 | ACETAMINOPHEN | [facility] | | | | [facility] | + + + + | 2025-07-06 00:00 | acetaminophen 500 MG Oral | [facility] | | | Tablet | [facility] | + + + + | (no date) | LORAZEPAM | [facility] | | | | [facility] | + + + + | (no date) | lorazepam 2 MG Oral Tablet | [facility] | | | [Ativan] | [facility] | + + + + | (no date) | METOCLOPRAMIDE HCL | [facility] | | | | [facility] | + + + + | (no date) | metoclopramide 10 MG Oral | [facility] | | | Tablet [Reglan] | [facility] | + + + + | (no date) | SERTRALINE HCL | [facility] | | | | [facility] | + + + + | (no date) | sertraline 25 MG Oral | [facility] | | | Tablet [Zoloft] | [facility] | + + + + | (no date) | MODAFINIL | [facility] | | | | [facility] | + + + + | (no date) | modafinil 100 MG Oral | [facility] | | | Tablet [Provigil] | [facility] | + + + + | (no date) | METHYLPREDNISOLONE | [facility] | | | | [facility] | + + + + | (no date) | methylprednisolone 4 MG | [facility] | | | Oral Tablet [Medrol] | [facility] | + + + + | (no date) | ALPRAZOLAM | [facility] | | | | [facility] | + + + + | (no date) | alprazolam 0.25 MG Oral | [facility] | | | Tablet | [facility] | + + + + | (no date) | LORATADINE | [facility] | | | | [facility] | + + + + | (no date) | loratadine 10 MG Oral | [facility] | | | Tablet | [facility] | + + + + | (no date) | METOCLOPRAMIDE HCL | [facility] | | | | [facility] | + + + + | (no date) | metoclopramide 10 MG Oral | [facility] | | | Tablet | [facility] | + + + + | (no date) | METRONIDAZOLE | [facility] | | | | [facility] | + + + + | (no date) | metronidazole 500 MG Oral | [facility] | | | Tablet | [facility] | + + + + | (no date) | ONDANSETRON | [facility] | | | | [facility] | + + + + | (no date) | ondansetron 8 MG | [facility] | | | Disintegrating Oral Tablet | [facility] | + + + + | (no date) | SUCRALFATE | [facility] | | | | [facility] | + + + + | (no date) | sucralfate 100 MG/ML Oral | [facility] | | | Suspension | [facility] | + + + + | (no date) | VALACYCLOVIR HCL | [facility] | | | | [facility] | + + + + | (no date) | valacyclovir 500 MG Oral | [facility] | | | Tablet | [facility] | + + + + | (no date) | ACETAMINOPHEN | [facility] | | | | [facility] | + + + + | (no date) | acetaminophen 325 MG Oral | [facility] | | | Tablet | [facility] | + + + + | (no date) | SUCRALFATE | [facility] | | | | [facility] | + + + + | (no date) | sucralfate 1000 MG Oral | [facility] | | | Tablet | [facility] | + + + + | (no date) | ESCITALOPRAM OXALATE | [facility] | | | | [facility] | + + + + | (no date) | escitalopram 10 MG Oral | [facility] | | | Tablet | [facility] | + + + + | (no date) | ESCITALOPRAM OXALATE | [facility] | | | | [facility] | + + + + | (no date) | escitalopram 20 MG Oral | [facility] | | | Tablet | [facility] | + + + + | (no date) | ESCITALOPRAM OXALATE | [facility] | | | | [facility] | + + + + | (no date) | escitalopram 10 MG Oral | [facility] | | | Tablet [Lexapro] | [facility] | + + + + | (no date) | ARIPIPRAZOLE | [facility] | | | | [facility] | + + + + | (no date) | aripiprazole 20 MG Oral | [facility] | | | Tablet [Abilify] | [facility] | + + + + | (no date) | ARIPIPRAZOLE | [facility] | | | | [facility] | + + + + | (no date) | aripiprazole 5 MG Oral | [facility] | | | Tablet | [facility] | + + + + | (no date) | ESCITALOPRAM OXALATE | [facility] | | | | [facility] | + + + + | (no date) | escitalopram 5 MG Oral | [facility] | | | Tablet [Lexapro] | [facility] | + + + + | (no date) | ARIPIPRAZOLE | [facility] | | | | [facility] | + + + + | (no date) | aripiprazole 5 MG Oral | [facility] | | | Tablet [Abilify] | [facility] | + + + + | (no date) | AMPHET ASP/AMPHET/D-AMPHET | [facility] | | | | [facility] | + + + + | (no date) | amphetamine aspartate 2.5 | [facility] | | | MG / amphetamine sulfate | [facility] | | | 2.5 MG / | | + + + + | 2025-07-06 00:00 | AMOXICILLIN/POTASSIUM CLAV | [facility] | | | | [facility] | + + + + | 2025-07-06 00:00 | amoxicillin 500 MG / | [facility] | | | clavulanate 125 MG Oral | [facility] | | | Tablet | | + + + + | (no date) | POTASSIUM CHLORIDE | [facility] | | | | [facility] | + + + + | (no ) | potassium chloride 10 MEQ | [facility] | | | Extended Release Oral | [facility] | | | Tablet [Klor | | + + + + | (no ) | ALBUTEROL SULFATE | [facility] | | | | [facility] | + + + + | (no ) | [id number] 200 ACTUAT | [facility] | | | albuterol 0.09 MG/ACTUAT | [facility] | | | Metered Dose I | | + + + + | (no ) | LEVONORGESTREL | [facility] | | | | [facility] | + + + + | (no date) | Levonorgestrel | [facility] | | | | [facility] | + + + + | (no date) | levonorgestrel [id number] | [facility] | | | MG/HR Intrauterine System | [facility] | | | [Mirena] | | + + + + | (no date) | CYCLOBENZAPRINE HCL | [facility] | | | | [facility] | + + + + | (no date) | cyclobenzaprine | [facility] | | | hydrochloride 10 MG Oral | [facility] | | | Tablet | | + + + + | (no date) | ADAPALENE/BENZOYL PEROXIDE | [facility] | | | | [facility] | + + + + | (no date) | adapalene 0.001 MG/MG / | [facility] | | | benzoyl peroxide 0.025 | [facility] | | | MG/MG Topical | | + + + + | (no date) | LISDEXAMFETAMINE | [facility] | | | DIMESYLATE | [facility] | + + + + | (no date) | lisdexamfetamine | [facility] | | | dimesylate 40 MG Oral | [facility] | | | Capsule [Vyvanse] | | + + + + | (no date) | HYDROCODONE | [facility] | | | BIT/ACETAMINOPHEN | [facility] | + + + + | (no date) | acetaminophen 325 MG / | [facility] | | | hydrocodone bitartrate 5 MG | [facility] | | | Oral Tabl | | + + + + | (no date) | ALBUTEROL SULFATE | [facility] | | | | [facility] | + + + + | (no date) | [id number] 200 ACTUAT | [facility] | | | albuterol 0.09 MG/ACTUAT | [facility] | | | Metered Dose I | | + + + + | (no date) | PROMETHAZINE HCL | [facility] | | | | [facility] | + + + + | (no date) | promethazine hydrochloride | [facility] | | | 25 MG Oral Tablet | [facility] | + + + + | (no date) | PROMETHAZINE HCL | [facility] | | | | [facility] | + + + + | (no date) | promethazine hydrochloride | [facility] | | | 25 MG Rectal Suppository | [facility] | | | [Phenado | | + + + + | (no date) | hydrOXYzine HCL | [facility] | | | | [facility] | + + + + | (no date) | hydroxyzine hydrochloride | [facility] | | | 25 MG Oral Tablet | [facility] | + + + + Problems No information. Procedures No information. Results/Labs +--------+--------+ +---------+--------+---------+ | test | date | facility | value | unit | notes | +--------+--------+ +---------+--------+---------+ + + | Result panel 1 | + + + + + +--------+ + + | Blood | 2025-07-06 | | 6.23 | (missing) | (missing) | | leukocytes | 06:25 | [facility] | | | | | automated | | - | | | | | count | | [facility] | | | | (number/volu | | Hospital | | | | | me) | | | | | | + + + +--------+ + + + + | Result panel 2 | + + + + + +--------+ + + | Blood | 2025-07-06 | | 2.10 | (missing) | (missing) | | lymphocytes | 06:25 | [facility] | | | | | automated | [facility] count [facility] | | | | (number/volu | | Hospital | | | | | me) | | | | | | + + + +--------+ + + + + | Result panel 3 | + + + + + +--------+ + + | Blood | 2025-07-06 | | 0.56 | (missing) | (missing) | | monocytes | 06:25 | [facility] | | | | | automated | [facility] count [facility] | | | | (number/volu | | Hospital | | | | | me) | | | | | | + + + +--------+ + + + + | Result panel 4 | + + + + + +--------+ + + | Automated | 2025-07-06 | | 0.24 | (missing) | (missing) | | blood | 06:25 | [facility] | | | | | eosinophil | [facility] - [facility] | | | | + + + +--------+ + + + + | Result panel 5 | + + + + + +--------+ + + | Automated | 2025-07-06 | | 0.03 | (missing) | (missing) | | blood | 06:25 | [facility] | | | | | basophil | | - [facility] count | [facility] | | | | (count/volum | | Hospital | | | | | e) | | | | | | + + + +--------+ + + + + | Result panel 6 | + + + + + +--------+ + + | Automated | 2025-07-06 | | 52.6 | (missing) | (missing) | | blood | 06:25 | [facility] | | | | | neutrophil | [facility] - [facility] count as | [facility] | | | | | percentage | | Hospital | | | | | of total | | | | | | | leukocytes | | | | | | + + + +--------+ + + + + | Result panel 7 | + + + + + +--------+ + + | Automated | 2025-07-06 | | 33.7 | (missing) | (missing) | | blood | 06:25 | [facility] | | | | | lymphocyte | | - [facility] | [facility] | count as | [facility] | | | | | percentage | | Hospital | | | | | ot total | | | | | | | leukocytes | | | | | | + + + +--------+ + + + + | Result panel 8 | + + + + + +-------+ + + | Automated | 2025-07-06 | | 9.0 | (missing) | (missing) | | blood | 06:25 | [facility] | | | | | monocyte | | - [facility] | [facility] | count as | [facility] | | | | | percentage | | Hospital | | | | | of total | | | | | | | leukocytes | | | | | | + + + +-------+ + + + + | Result panel 9 | + + + + + +-------+ + + | Automated | 2025-07-06 | | 3.9 | (missing) | (missing) | | blood | 06:25 | [facility] | | | | | eosinophil | | - [facility] | count as | | [facility] | | | | | percentage | | Hospital | | | | | of total | | | | | | | leukocytes | | | | | | + + + +-------+ + + + + | Result panel 10 | + + + + + +-------+ + + | Automated | 2025-07-06 | | 0.5 | (missing) | (missing) | | blood | 06:25 | [facility] | | | | | basophil | | - [facility] | [facility] | count as | | [facility] | | | | | percentage | | Hospital | | | | | of total | | | | | | | leukocytes | | | | | | + + + +-------+ + + + + | Result panel 11 | + + + + + +-------+ + + | Serum or | 2025-07-06 | | 101 | (missing) | (missing) | | plasma | 06:25 | [facility] | | | | | glucose | | - [facility] | [facility] | measurement | [facility] | | | | | (mass/volume | | Hospital | | | | | ) | | | | | | + + + +-------+ + + + + | Result panel 12 | + + + + + +--------+ + + | Blood | 2025-07-06 | | 5.31 | (missing) | (missing) | | erythrocytes | 06:25 | [facility] | | | | | automated | [facility] - [facility] count | [facility] | | | | | (number/volu | | Hospital | | | | | me) | | | | | | + + + +--------+ + + + + | Result panel 13 | + + + + + +-----+ + + | Serum or | 2025-07-06 | | 7 | (missing) | (missing) | | plasma urea | 06:25 | [facility] | | | | | nitrogen | | - [facility] | [facility] | measurement | [facility] | | | | (mass/volume | | Hospital | | | | | ) | | | | | | + + + +-----+ + + + + | Result panel 14 | + + + + + +--------+ + + | Serum or | 2025-07-06 | | 0.85 | (missing) | (missing) | | plasma | 06:25 | [facility] | | | | | creatinine | | - [facility] | measurement | | [facility] | | | | (mass/volume | | Hospital | | | | | ) | | | | | | + + + +--------+ + + + + | Result panel 15 | + + + + + +------+ + + | Glomerular | 2025-07-06 | | 95 | (missing) | (missing) | | filtration | 06:25 | [facility] | | | | | rate/1.73 sq | | - [facility] | | | | | M.predicted | | [facility] | | | | | [Volume | | Hospital | | | | | Rate/Area] | | | | | | | inSerum, | | | | | | | Plasma or | | | | | | | Blood by | | | | | | | Creatinine-b | | | | | | | ased formula | | | | | | | (CKD-EPI | | | | | | | 2020) | | | | | | + + + +------+ + + + + | Result panel 16 | + + + + + +--------+ + + | Serum or | 2025-07-06 | | 8.23 | (missing) | (missing) | | plasma urea | 06:25 | [facility] | | | | | nitrogen/cre | | - [facility] | | | | | atinine mass | | [facility] | | | | ratio | | Hospital | | | | + + + +--------+ + + + + | Result panel 17 | + + + + + +-------+ + + | Serum or | 2025-07-06 | | 141 | (missing) | (missing) | | plasma | 06:25 | [facility] | | | | | sodium | | - [facility] | | [facility] | | measurement | | [facility] | | | | | (moles/volum | | Hospital | | | | | e) | | | | | | + + + +-------+ + + + + | Result panel 18 | + + + + + +-------+ + + | Serum or | 2025-07-06 | | 3.8 | (missing) | (missing) | | plasma | 06:25 | [facility] | | | | | potassium | | - [facility] | [facility] | measurement | | [facility] | | | | | (moles/volum | | Hospital | | | | | e) | | | | | | + + + +-------+ + + + + | Result panel 19 | + + + + + +-------+ + + | Serum or | 2025-07-06 | | 105 | (missing) | (missing) | | plasma | 06:25 | [facility] | | | | | chloride | | - [facility] | | | | | measurement | | [facility] | | | | | (moles/volum | | Hospital | | | | | e) | | | | | | + + + +-------+ + + + + | Result panel 20 | + + + + + +------+ + + | Serum or | 2025-07-06 | | 25 | (missing) | (missing) | | plasma | 06:25 | [facility] | | | | | carbon [facility] dioxide, [facility] | [facility] total | | [facility] | | | | | measurement | | | | | | | (moles/volum | | | | | | | e) | | | | | | + + + +------+ + + + + | Result panel 21 | + + + + + +--------+ + + | Serum or | 2025-07-06 | | 14.8 | (missing) | (missing) | | plasma anion | 06:25 | [facility] | | | | | gap 4 | [facility] | | | | + + + +--------+ + + + + | Result panel 22 | + + + + + +-------+ + + | Serum or | 2025-07-06 | | 8.9 | (missing) | (missing) | | plasma | 06:25 | [facility] | | | | | calcium | [facility] measurement | [facility] | | | | (mass/volume | | Hospital | | | | | ) | | | | | | + + + +-------+ + + + + | Result panel 23 | + + + + + +--------+ + + | Blood | 2025-07-06 | | 14.5 | (missing) | (missing) | | hemoglobin | 06:25 | [facility] | | | | | measurement | [facility] | (mass/volume | [facility] | ) | | [facility] | | | | + + + +--------+ + + + + | Result panel 24 | + + + + + +-------+ + + | Serum or | 2025-07-06 | | 7.4 | (missing) | (missing) | | plasma | 06:25 | [facility] | | | | | protein | [facility] | [facility] | | | | (mass/volume | | Hospital | | | | | ) | | | | | | + + + +-------+ + + + + | Result panel 25 | + + + + + +-------+ + + | Serum or | 2025-07-06 | | 3.6 | (missing) | (missing) | | plasma | 06:25 | [facility] | | | | | albumin | [facility] measurement | [facility] | | | | (mass/volume | | Hospital | | | | | ) | | | | | | + + + +-------+ + + + + | Result panel 26 | + + + + + +-------+ + + | Serum | 2025-07-06 | | 3.8 | (missing) | (missing) | | globulin | 06:25 | [facility] | | | | | measurement | [facility] (mass/volume | [facility] ) | | [facility] | | | | + + + +-------+ + + + + | Result panel 27 | + + + + + +--------+ + + | Serum or | 2025-07-06 | | 0.95 | (missing) | (missing) | | plasma | 06:25 | [facility] | | | | | albumin/glob | [facility] ulin mass | [facility] | | | | ratio | | [facility] | | | | + + + +--------+ + + + + | Result panel 28 | + + + + + +-------+ + + | Serum or | 2025-07-06 | | 0.5 | (missing) | (missing) | | plasma total | 06:25 | [facility] | | | | | bilirubin | [facility] measurement | [facility] | | | | (mass/volume | | Hospital | | | | | ) | | | | | | + + + +-------+ + + + + | Result panel 29 | + + + + + +------+ + + | Serum or | 2025-07-06 | | 15 | (missing) | (missing) | | plasma | 06:25 | [facility] | | | | | aspartate | [facility] - [facility] | aminotransfe | | [facility] | | | | rase | | Hospital | | | | | measurement | | | | | | | (enzymatic | | | | | | | activity/vol | | | | | | | ume) | | | | | | + + + +------+ + + + + | Result panel 30 | + + + + + +------+ + + | Serum or | 2025-07-06 | | 23 | (missing) | (missing) | | plasma | 06:25 | [facility] | | | | | alanine | | - [facility] | | | | | aminotransfe | | [facility] | | | | | rase | | Hospital | | | | | measurement | | | | | | | (enzymatic | | | | | | | activity/vol | | | | | | | ume) | | | | | | + + + +------+ + + + + | Result panel 31 | + + + + + +-------+ + + | Serum or | 2025-07-06 | | 108 | (missing) | (missing) | | plasma | 06:25 | [facility] | | | | | alkaline | [facility] phosphatase | [facility] | | | | measurement | | Hospital | | | | | (enzymatic | | | | | | | activity/vol | | | | | | | ume) | | | | | | + + + +-------+ + + + + | Result panel 32 | + + + + + + + + + | Serum or | 2025-07-06 | | NEGATIVE | (missing) | (missing) | | plasma | 06:25 | [facility] | | | | | choriogonado | [facility] | tropin | [facility] | | | | ( | | [facility] | | | | | test) | | | | | | | detection | | | | | | + + + + + + + + + | Result panel 33 | + + + + + +--------+ + + | Automated | 2025-07-06 | | 45.8 | (missing) | (missing) | | blood | 06:25 | [facility] | | | | | hematocrit | [facility] | | | | + + + +--------+ + + + + | Result panel 34 | + + + + + +--------+ + + | Automated | 2025-07-06 | | 86.3 | (missing) | (missing) | | erythrocyte | 06:25 | [facility] | | | | | mean | [facility] | corpuscular | [facility] | | | | volume | | Hospital | | | | + + + +--------+ + + + + | Result panel 35 | + + + + + +--------+ + + | Automated | 2025-07-06 | | 27.3 | (missing) | (missing) | | erythrocyte | 06:25 | [facility] | | | | | mean | | - [facility] | | | | | corpuscular | | [facility] | | | | | hemoglobin | | Hospital | | | | | (mass per | | | | | | | erythrocyte) | | | | | | | | | | | | | + + + +--------+ + + + + | Result panel 36 | + + + + + +--------+ + + | Automated | 2025-07-06 | | 31.7 | (missing) | (missing) | | erythrocyte | 06:25 | [facility] | | | | | mean | | - [facility] | | | | | corpuscular | | [facility] | | | | | hemoglobin | | Hospital | | | | | concentratio | | | | | | | n | | | | | | | measurement | | | | | | | (mass/volume | | | | | | | ) | | | | | | + + + +--------+ + + + + | Result panel 37 | + + + + + +-------+ + + | Automated | 2025-07-06 | | 389 | (missing) | (missing) | | blood | 06:25 | [facility] | | | | | platelet | [facility] count | [facility] | | | | (count/volum | | Hospital | | | | | e) | | | | | | + + + +-------+ + + + + | Result panel 38 | + + + + + +--------+ + + | Blood | 2025-07-06 | | 3.28 | (missing) | (missing) | | neutrophils | 06:25 | [facility] | | | | | automated | | [facility] count | [facility] | | | | | (number/volu | | Hospital | | | | | me) | | | | | | + + + +--------+ + + + + | Result panel 39 | + + + + + +--------+ + + | WBC # Bld | 2025-07-06 | | 6.23 | (missing) | (missing) | | Auto | 06:25:08 | [facility] | | | | + + + +--------+ + + + + | Result panel 40 | + + + + + +--------+ + + | RBC # Bld | 2025-07-06 | | 5.31 | (missing) | (missing) | | Auto | 06:25:08 | [facility] | | | | + + + +--------+ + + + + | Result panel 41 | + + + + + +--------+ + + | Hgb | 2025-07-06 | | 14.5 | (missing) | (missing) | | Bld-mCnc | 06:25:08 | [facility] | | | | | | | - | | | | | | | [facility] | | [facility] | | | | + + + +--------+ + + + + | Result panel 42 | + + + + + +--------+ + + | Hct VFr.DF | 2025-07-06 | | 45.8 | (missing) | (missing) | | Bld Auto | 06:25:08 | [facility] | | | | + + + +--------+ + + + + | Result panel 43 | + + + + + +--------+ + + | RBC Auto | 2025-07-06 | | 86.3 | (missing) | (missing) | | | 06:25:08 | [facility] | | | | + + + +--------+ + + + + | Result panel 44 | + + + + + +--------+ + + | MCH RBC Qn | 2025-07-06 | | 27.3 | (missing) | (missing) | | Auto | 06:25:08 | [facility] | | | | + + + +--------+ + + + + | Result panel 45 | + + + + + +--------+ + + | MCHC RBC | 2025-07-06 | | 31.7 | (missing) | (missing) | | Auto-EntMCnc | 06:25:08 | [facility] | | | | + + + +--------+ + + + + | Result panel 46 | + + + + + +-------+ + + | Platelet # | 2025-07-06 | | 389 | (missing) | (missing) | | Bld Auto | 06:25:08 | [facility] | | | | + + + +-------+ + + + + | Result panel 47 | + + + + + +--------+ + + | Neutrophils | 2025-07-06 | | 3.28 | (missing) | (missing) | | # Bld Auto | 06:25:08 | [facility] | | | | + + + +--------+ + + + + | Result panel 48 | + + + + + +--------+ + + | Lymphocytes | 2025-07-06 | | 2.10 | (missing) | (missing) | | # Bld Auto | 06:25:08 | [facility] | | | | + + + +--------+ + + + + | Result panel 49 | + + + + + +--------+ + + | Monocytes # | 2025-07-06 | | 0.56 | (missing) | (missing) | | Bld Auto | 06:25:08 | [facility] | | | | + + + +--------+ + + + + | Result panel 50 | + + + + + +--------+ + + | Eosinophil | 2025-07-06 | | 0.24 | (missing) | (missing) | | # Bld Auto | 06:25:08 | [facility] | | | | + + + +--------+ + + + + | Result panel 51 | + + + + + +--------+ + + | Basophils # | 2025-07-06 | | 0.03 | (missing) | (missing) | | Bld Auto | 06:25:08 | [facility] | | | | + + + +--------+ + + + + | Result panel 52 | + + + + + +--------+ + + | Neutrophils | 2025-07-06 | | 52.6 | (missing) | (missing) | | NFr Bld | ::08 | [facility] | | | | | Auto | [facility] | | | | + + + +--------+ + + + + | Result panel 53 | + + + + + +--------+ + + | Lymphocytes | 2025-07-06 | | 33.7 | (missing) | (missing) | | NFr Bld | :25:08 | [facility] | | | | | Auto | [facility] | | | | + + + +--------+ + + + + | Result panel 54 | + + + + + +-------+ + + | Monocytes | 2025-07-06 | | 9.0 | (missing) | (missing) | | NFr Bld Auto | 06:25:08 | [facility] | | | | + + + +-------+ + + + + | Result panel 55 | + + + + + +-------+ + + | Eosinophil | 2025-07-06 | | 3.9 | (missing) | (missing) | | NFr Bld Auto | 06:25:08 | [facility] | | | | + + + +-------+ + + + + | Result panel 56 | + + + + + +-------+ + + | Basophils | 2025-07-06 | | 0.5 | (missing) | (missing) | | NFr Bld Auto | 06:25:08 | [facility] | | | | + + + +-------+ + + + + | Result panel 57 | + + + + + +-------+---------+ + | Glucose | 2025-07-06 | | 101 | mg/dL | (missing) | | Marian-Vel | 06:25:08 | [facility] | | | | + + + +-------+---------+ + + + | Result panel 58 | + + + + + +-----+---------+ + | BUN | 2025-07-06 | | 7 | mg/dL | (missing) | | Marian-Vel | 06:25:08 | [facility] | | | | + + + +-----+---------+ + + + | Result panel 59 | + + + + + +--------+---------+ + | Creat | 2025-07-06 | | 0.85 | mg/dL | (missing) | | SerPl-mCnc | 06:25:08 | [facility] | | | | | | | - | | | | | | | [facility] | | | | + + + +--------+---------+ + + + | Result panel 60 | + + + + + +------+ + + | eGFRcr | 2025-07-06 | | 95 | (missing) | (missing) | | SerPlBld | 06:25:08 | [facility] | | | | | CKD-EPI 2020 | [facility] | | | | + + + +------+ + + + + | Result panel 61 | + + + + + +--------+ + + | BUN/Creat | 2025-07-06 | | 8.23 | (missing) | (missing) | | SerPl | :08 | [facility] | | | | + + + +--------+ + + + + | Result panel 62 | + + + + + +-------+ + + | Sodium | 2025-07-06 | | 141 | (missing) | (missing) | | SerPl-sCnc | :25:08 | [facility] | | | | + + + +-------+ + + + + | Result panel 63 | + + + + + +-------+ + + | Potassium | 2025-07-06 | | 3.8 | (missing) | (missing) | | [facility] | 06:25:08 | [facility] | | | | + + + +-------+ + + + + | Result panel 64 | + + + + + +-------+ + + | Chloride | 2025-07-06 | | 105 | (missing) | (missing) | | SerPl-sCnc | 06:25:08 | [facility] | | | | + + + +-------+ + + + + | Result panel 65 | + + + + + +------+ + + | CO2 | 2025-07-06 | | 25 | (missing) | (missing) | | SerPl-sCnc | 06:25:08 | [facility] | | | | [facility] | | | | + + + +------+ + + + + | Result panel 66 | + + + + + +--------+ + + | Anion Gap | 2025-07-06 | | 14.8 | (missing) | (missing) | | SerPl | 06:25:08 | [facility] | | | | | Calculated.4 | [facility] | | | | + + + +--------+ + + + + | Result panel 67 | + + + + + +-------+---------+ + | Calcium | 2025-07-06 | | 8.9 | mg/dL | (missing) | | SerPl-mCnc | 06:25:08 | [facility] | | | | + + + +-------+---------+ + + + | Result panel 68 | + + + + + +-------+ + + | Prot | 2025-07-06 | | 7.4 | (missing) | (missing) | | SerPl-mCalessandro | 06:25:08 | [facility] | | | | + + + +-------+ + + + + | Result panel 69 | + + + + + +-------+ + + | Albumin | 2025-07-06 | | 3.6 | (missing) | (missing) | | SerPl-mCalessandro | 06:25:08 | [facility] | | | | + + + +-------+ + + + + | Result panel 70 | + + + + + +-------+ + + | Globulin | 2025-07-06 | | 3.8 | (missing) | (missing) | | Ser-mCalessandro | ::08 | [facility] | | | [facility] | | | | + + + +-------+ + + + + | Result panel 71 | + + + + + +--------+ + + | | 2025-07-06 | | 0.95 | (missing) | (missing) | | Albumin/Glob | :25:08 | [facility] | | | | | SerPl | [facility] | | | | + + + +--------+ + + + + | Result panel 72 | + + + + + +-------+---------+ + | Bilirub | 2025-07-06 | | 0.5 | mg/dL | (missing) | | Kishal-Vel | 06:25:08 | [facility] | | | | + + + +-------+---------+ + + + | Result panel 73 | + + + + + +------+ + + | AST | 2025-07-06 | | 15 | (missing) | (missing) | | SerPl-cCnc | 06:25:08 | [facility] | | | | + + + +------+ + + + + | Result panel 74 | + + + + + +------+ + + | ALT | 2025-07-06 | | 23 | (missing) | (missing) | | SerPl-cCnc | 06:25:08 | [facility] | | | | + + + +------+ + + + + | Result panel 75 | + + + + + +-------+ + + | ALP | 2025-07-06 | | 108 | (missing) | (missing) | | SerPl-cCnc | 06:25:08 | [facility] | | | | + + + +-------+ + + + + | Result panel 76 | + + + + + + + + + | HCG SerPl | 2025-07-06 | | NEGATIVE | (missing) | (missing) | | Ql | ::08 | [facility] | | | | + + + + + + + Social History + + + + | date | description | facility | + + + + | (no date) | Never smoker [facility] | + + + + Vital Signs + + + +---------+ | date | measurement | value | units | + + + +---------+ | 2025-07-06 00:00 | BMI | 34.4 | kg/m2 | + + + +---------+ | 2025-07-06 00:00 | BP_diastolic | 66 | mmHg | + + + +---------+ | 2025-07-06 00:00 | BP_systolic | 107 | mmHg | + + + +---------+ | 2025-07-06 00:00 | heart_rate | 78 | /min | + + + +---------+ | 2025-07-06 00:00 | height_metric | 162.56 | cm | + + + +---------+ | 2025-07-06 00:00 | height_standard | 64 | in | + + + +---------+ | 2025-07-06 00:00 | o2_saturation | 97 | % | + + + +---------+ | 2025-07-06 00:00 | respiration_rate | 16 | /min | + + + +---------+ | 2025-07-06 00:00 | | 97.8 | F | | | temperature_standar | | | | | d | | | + + + +---------+ | 2025-07-06 00:00 | weight_metric | 90.9 | kg | + + + +---------+ | 2025-07-06 00:00 | weight_standard | 200.400 | lb | + + + +---------+"
[~2025-07-13 07:14] MED LIST changes: +AMOX TR-K CLV1 EACH PO; -LACTATED RINGER'S 1,000 ML IV SCH
[2025-07-13] MEDS ORDERED: [UNRECOGNIZED DRUG - OTHER] PO (07:37)
[2025-07-13] MEDS ORDERED: DOXYCYCLINE HY100 MG PO (08:04)
[2025-07-13 08:08] LABS: BASOPHILS 0.3 % (0.1-1.2); EOSINOPHILS 2.4 % (0.7-5.8); LYMPHOCYTES 22.7 % (19.3-51.7); MCH 27.3 PG (25.6-32.2); MCHC 31.5 g/dL (32.2-35.5); MCV 86.5 fL (79.4-94.8); MONOCYTES 6.8 % (4.7-12.5); NEUTROPHILS 67.6 % (34.0-71.1); RBC 5.10 M/uL (3.93-5.22)
[2025-07-13 08:17] VITALS: BP 119/77
--- NOTE | 2025-07-13 18:38 | CONS ---
[facility] [address], [place] [address] Signed DATE OF CONSULTATION: 07/13/2025 CONSULTING PHYSICIAN: Rajiv Giles MD. ISSUE: Incisional wound issues. HISTORY: This obese 30-year-old woman underwent excision of a draining infected abdominal sinus tract by me on July 06, 2025. She has a complex past history, which had included incisional hernia repair with implantation of mesh. Operation consisted of wide excision of infected or previously infected scar, subcutaneous tissue, the associated skin and down to and including some mesh from the fascial defect. The fascial defect was then reapproximated with Prolene. She was given Augmentin postoperatively. She was doing perfectly well until last night, then she had some swelling and inflammation in the region and had spontaneous egress of what sounded like seromatous fluid. She was thoroughly evaluated by Dr. Burks, found to have mild erythema of the skin and wound which was largely intact. PHYSICAL EXAMINATION: She does not look toxic. CBC is pending. Her temperature is 98.8, pulse is 101, blood pressure is 130/90. Examination of the wound shows mild erythema and very deep abdominal wall pannus. With sterile hemostats, the wound was probed in the cephalad aspect allowing for egress of reasonably clear seromatous fluid. There was no sign of purulence. Extension inferiorly did not show a large cavity. The wound was then packed with a quarter of a 4 x 4 gauze and gauze then applied. ASSESSMENT: The patient has seromatous fluid collection, does not look to be an abscess, though she is at high risk for that. She was on Augmentin and is noted to be allergic to sulfa medications. We will prescribe for her doxycycline 100 mg p.o. b.i.d. She is due to see me back in the office in early July in followup. If she has problems in the meantime, she will let me know. Showering is still permitted and indeed encouraged particularly to the operative area. Electronically Signed By: RAJIV GILES MD 07/13/25 1838 PATIENT NAME: RADHA ULRICH [place] CONSULTATION DATE OF : [birth year] REPORT #: [id number] PHYSICIAN: RAJIV GILES MD PCP: NO PRIMARY CARE PHYSICIAN REPORT IS CONFIDENTIAL AND NOT TO BE RELEASED WITHOUT AUTHORIZATION [address] [address] Signed MD ERICA Seay/MODL /[id number] cc: Felton Burks MD Copies: FELTON BURKS MD ~ Electronically Signed By: RAJIV GILES MD 07/13/25 1838 PATIENT NAME: RADHA ULRICH [place] [facility] DATE OF : [birth year] REPORT #: [id number] PHYSICIAN: RAJIV GILES MD PCP: NO PRIMARY CARE PHYSICIAN REPORT IS CONFIDENTIAL AND NOT TO BE RELEASED WITHOUT AUTHORIZATION
[2025-07-20] MEDS ORDERED: DOXYCYCLINE HY100 MG PO (16:58)
[2025-07-20] MEDS ORDERED: WAKIX17.8 MG PO (18:30)
[2025-07-22] MEDS ORDERED: CLINDAMYCIN HC300 MG PO (15:27)
[2025-07-22] MEDS ORDERED: DOXYCYCLINE HY100 MG PO (15:27)
[2025-07-22] MEDS ORDERED: OXYCODONE HCL5 M1 PO (15:34)
== END 2025-07-13 08:17 | disposition home or self-care (01) ==
LOC: ED 07:14
PROVIDERS: Emergency Medicine
DX: L76.34 Postprocedural seroma of skin and subcutaneous tissue following other procedure (principal); J45.909 Unspecified asthma, uncomplicated; Z79.899 Other long term (current) drug therapy; Z88.5 Allergy status to narcotic agent; Z88.1 Allergy status to other antibiotic agents
CPT/HCPCS: 36415; 85025; 99283